=== PATIENT | female | born 1970 | race Caucasian/White ===

== ENCOUNTER 2017-04-28 15:15 | Inpatient (IN) | payer BC, OTHER ==
[~2017-04-28] VITALS: Ht 162.6 cm; Wt 75.4 kg
[2017-04-28] MEDS ORDERED: morphine 4 MG/ML VIAL IV STA (16:04)
[2017-04-28] MEDS ORDERED: ONDANSETRON 4 MG INJ IV STA (16:04)
[2017-04-28 16:26] LABS: ADD SCAN DIFF NO
[2017-04-28 16:30] LABS: BASOPHIL # 0.1 10^3/ul (0.0-0.1); BASOPHILS % 0.5 % (0.0-2.0); EOSINOPHILS # 0.2 10^3/ul (0.0-0.5); EOSINOPHILS % 1.2 % (0.0-7.0); HEMOGLOBIN 12.6 g/dl (12.0-16.0); LYMPHOCYTES # 3.3 10^3/ul (0.8-2.9); LYMPHOCYTES % 26.2 % (15.0-51.0); MEAN CORPUSCULAR HGB CONC 31.5 g/dl (32.0-37.0); MEAN CORPUSCULAR VOLUME 85.8 fl (82.0-101.0); MEAN PLATELET VOLUME 9.2 fl (7.4-10.4); MONOCYTE # 0.9 10^3/ul (0.3-0.9); NEUTROPHIL # 8.3 10^3/ul (1.6-7.5); NEUTROPHILS % 64.8 % (39.0-77.0); PLATELET COUNT 378 10^3/UL (140-415); RED BLOOD COUNT 4.66 10^6/ul (4.20-5.40); RED CELL DISTRIBUTION WIDTH 14.6 % (11.5-14.5); WHITE BLOOD COUNT 12.7 10^3/ul (4.8-10.8)
[2017-04-28 16:33] LABS: ADD UMIC YES; UR BILIRUBIN (Dip) 1+ (NEGATIVE); UR BLOOD (Dip) 3+ (NEGATIVE); UR CLARITY CLEAR (CLEAR); UR COLOR YELLOW (YELLOW); UR GLUCOSE (Dip) NEGATIVE (NEGATIVE); UR KETONES (Dip) TRACE (NEGATIVE); UR LEUKOCYTE ESTERASE (Dip) NEGATIVE (NEGATIVE); UR NITRITE (Dip) NEGATIVE (NEGATIVE); UR TOTAL PROTEIN (Dip) TRACE (NEGATIVE); UR UROBILINOGEN (Dip) 1.0 E.U./dL (0.1-1.0)
--- NOTE | 2017-04-28 16:33 | RADRPT ---
PROCEDURE: XR Chest. CLINICAL INDICATION: Vaginal bleeding. TECHNIQUE: Single frontal view. COMPARISON: None. FINDINGS: The lungs are clear. The heart size is normal. There is no pleural effusion. There is no pneumothorax. IMPRESSION: 1. Normal chest radiograph. RPTAT: QQ .David Herrera MD, Date Time Electronically viewed and signed by .David Herrera MD, on 04/28/2017 16:32 .R/
[2017-04-28 16:48] LABS: INR 0.91; PROTIME 12.3 Sec (12.2-14.2)
[2017-04-28 16:49] LABS: PARTIAL THROMBOPLASTIN TIME 27.5 Sec (25.0-35.0)
[2017-04-28 16:53] LABS: ANION GAP 13 (8-16); BLOOD UREA NITROGEN 12 mg/dl (7-20); CALCIUM 9.2 mg/dl (8.4-10.2); CARBON DIOXIDE 24 mmol/L (21-31); CHLORIDE 109 mmol/L (97-110); CREATININE 0.75 mg/dl (0.44-1.00); GLUCOSE 72 mg/dl (70-220); POTASSIUM 3.9 mmol/L (3.5-5.1); SODIUM 142 mmol/L (135-144)
[2017-04-28] MEDS ORDERED: ONDANSETRON 4 MG INJ IV PRN (17:00)
[2017-04-28] MEDS ORDERED: ACETAMINOPHEN 325 MG TAB PO PRN ×2 (17:00→21:00)
[2017-04-28 17:04] LABS: UR BACTERIA FEW; URINE RBCS >200 /HPF (0)
[2017-04-28 17:05] LABS: UR MUCUS MODERATE; UR SQUAMOUS EPITHELIAL CELL FEW
[2017-04-28 17:06] LABS: TROPONIN-I < 0.012 ng/ml (0.00-0.12)
--- NOTE | 2017-04-28 17:28 | RADRPT ---
PROCEDURE: US Pelvis. CLINICAL INDICATION: Abnormal vaginal bleeding. History of fibroid. TECHNIQUE: The pelvis was evaluated with transabdominal and transvaginal sonography in the axial a nd sagittal planes. COMPARISON: No prior study is available for comparison. FINDINGS: Uterus: 9.9 x 6.0 x 7.0 cm. Endometrium: 2.5 mm. Right ovary: 1.9 x 1.0 x 1.6 cm. Left ovary: 2.3 x 1.2 x 1.9 cm. Uterine masses: There is a anterior fundal fibroid measuring 5.8 x 4.3 x 7.2 cm. There is no other uterine mass. Ovarian masses: None. Color Doppler and pulsed Doppler sonography demonstrate normal flow to the ova keila. Other pelvic masses: None. Free fluid: None. IMPRESSION: 1. Anterior fundal fibroid measuring 5.8 x 4.3 x 7.2 cm. 2. Otherwise normal pelvic ultrasound. RPTAT: QQ .David Herrera MD, MD Date Time Electronically viewed and signed by .David Herrera MD, on 04/28/2017 17:27 .R/
[2017-04-28] MEDS ORDERED: TRAZ150T65 PO (17:31)
[2017-04-28] MEDS ORDERED: ALPR0.5T PO (17:32)
[2017-04-28] MEDS ORDERED: ESCI20TA PO (17:33)
[2017-04-28] MEDS ORDERED: SUMA100T9 PO (17:34)
[2017-04-28] MEDS ORDERED: OXYC-279 PO (17:34)
[2017-04-28] MEDS ORDERED: ONDA4TAB8 PO (17:35)
[2017-04-28] MEDS ORDERED: MEDR10TA2 PO (17:36)
[2017-04-28 18:01] LABS: ICTOTEST NEGATIVE (NEGATIVE)
[2017-04-28 18:29] VITALS: TEMP 98.3
[2017-04-28 19:30] VITALS: BP 120/71; RESP 20
[2017-04-28 20:03] VITALS: Ht 162.6 cm; Wt 75.4 kg
--- NOTE | 2017-04-28 20:05 | ERA ---
ER Documentation Chief Complaint Date/Time DATE: 04/28/17 TIME: 20:02 Chief Complaint vag bleed x 2 days HPI Patient is a 46-year-old female with fibromyalgia presents with vaginal bleeding. The patient was sent by Dr. Serrano for vaginal bleeding and hysterectomy. The patient has pelvic cramping as well. She said that she tried 1.5 Percocet today but was still having pain. She said that she is tried Provera as an outpatient and she is still having vaginal bleeding. She says that she has had multiple visits to [place] emergency department and workup there as well. ROS All systems reviewed and are negative except as per history of present illness. Medications Home Meds Reported Medications Medroxyprogesterone Acetate* (Provera*) 10 Mg Tablet, 20 MG PO TID, TAB 04/28/17 Ondansetron Hcl* (Zofran*) 4 Mg Tablet, 4 MG PO NEEDED Y for NAUSEA AND OR VOMITING, TAB 04/28/17 Oxycodone HCl/Acetaminophen (Percocet 5-325 mg Tablet) 1 Each Tablet, 1 EACH PO NEEDED, TAB 04/28/17 Sumatriptan Succinate* (Imitrex*) 100 Mg Tablet, 100 MG PO DAILY Y for MIGRAINE HEADACHE, TAB May repeat after 2 hours if needed; MAX 200 mg/24 hours 04/28/17 Escitalopram Oxalate* (Lexapro*) 20 Mg Tablet, 40 MG PO DAILY, #30 TAB 04/28/17 Alprazolam* (Xanax*) 0.5 Mg Tab, 0.5 MG PO NEEDED Y for ANXIETY, TAB 04/28/17 Trazodone Hcl* (Trazodone Hcl*) 150 Mg Tablet, 150 MG PO QHS, #30 TAB 04/28/17 Allergies Allergies: Coded Allergies: ibuprofen (Verified Allergy, Severe, hives, 04/28/17) PMhx/Soc History of Surgery: Yes (gastric bypass) Anesthesia Reaction: No Hx Neurological Disorder: No Hx Respiratory Disorders: No Hx Cardiac Disorders: No Hx Psychiatric Problems: No Hx Miscellaneous Medical Probl: Yes (fibroids) Hx Alcohol Use: Yes Hx Substance Use: No Hx Tobacco Use: No Smoking Status: Never smoker FmHx Family History: diabetes Physical Exam Vitals Vital Signs Date Time Temp Pulse Resp B/P Pulse Ox O2 Delivery O2 Flow Rate FiO2 04/28/17 15:17 98.3 95 18 141/69 98 Physical Exam Const: Mild distress secondary to pain Head: Atraumatic Eyes: Normal Conjunctiva ENT: Normal External Ears, Nose and Mouth. Neck: Full range of motion..~ No meningismus. Resp: Clear to auscultation bilaterally Cardio: Regular rate and rhythm, no murmurs Abd: Pelvic cramping Skin: No petechiae or rashes Back: No midline or flank tenderness Ext: No cyanosis, or edema Neur: Awake and alert Psych: Normal Mood and Affect Result Diagram: 04/28/17 1605 04/28/17 1605 Results 24 hrs Laboratory Tests Test 04/28/17 16:04 04/28/17 16:05 Urine Color YELLOW Urine Clarity CLEAR Urine pH 5.5 Urine Specific [place] >=1.030 Urine Ketones TRACE Urine Nitrite NEGATIVE Urine Bilirubin 1+ Urine Ictotest NEGATIVE Urine Urobilinogen 1.0 E.U./dL Urine Leukocyte Esterase NEGATIVE Urine Microscopic RBC >200/HPF Urine Microscopic WBC 0-2/HPF Urine Squamous Epithelial Cells FEW Urine Bacteria FEW Urine Mucus MODERATE Urine Hemoglobin 3+ Urine Glucose NEGATIVE% Urine Total Protein TRACE White Blood Count 12.710^3/ul Red Blood Count 4.6610^6/ul Hemoglobin 12.6g/dl Hematocrit 40.0% Mean Corpuscular Volume 85.8fl Mean Corpuscular Hemoglobin 27.0pg Mean Corpuscular Hemoglobin Concent 31.5g/dl Red Cell Distribution Width 14.6% Platelet Count 07973^3/UL Mean Platelet Volume 9.2fl Neutrophils % 64.8% Lymphocytes % 26.2% Monocytes % 7.0% Eosinophils % 1.2% Basophils % 0.5% Nucleated Red Blood Cells % 0.0/100WBC Neutrophils # 8.310^3/ul Lymphocytes # 3.310^3/ul Monocytes # 0.910^3/ul Eosinophils # 0.210^3/ul Basophils # 0.110^3/ul Nucleated Red Blood Cells # 0.010^3/ul Prothrombin Time 12.3Sec Prothrombin Time Ratio 1.0 INR International Normalized Ratio 0.91 Activated Partial Thromboplast Time 27.5Sec Sodium Level 142mmol/L Potassium Level 3.9mmol/L Chloride Level 109mmol/L Carbon Dioxide Level 24mmol/L Anion Gap 13 Blood Urea Nitrogen 12mg/dl Creatinine 0.75mg/dl Glucose Level 72mg/dl Calcium Level 9.2mg/dl Troponin I < 0.012ng/ml Beta HCG, Quantitative < 2.4mIU/ml Current Medications Medications (Trade) Dose Ordered Sig/Omar Route PRN Reason Start Time Stop Time Status Last Admin Dose Admin Morphine Sulfate (morphine) 4 mg ONCE STAT IV 04/28/17 16:04 04/28/17 16:05 DC 04/28/17 16:09 Ondansetron HCl (Zofran Inj) 4 mg ONCE STAT IV 04/28/17 16:04 04/28/17 16:05 DC 04/28/17 16:09 Procedures/MDM Chest x-ray negative per radiology. Ultrasound shows fundal fibroid per radiology. Smoking Cessation Therapy: Pt. was lectured for greater than 3 minutes on the health risks of continued smoking and the benefits of cessation. Patient is a 46-year-old female who presents with vaginal bleeding. The patient has failed outpatient treatment at this time. She has [employer] insurance and Dr. Serrano would like to do a hysterectomy and would like the patient admitted to Dr. Hooks. The patient will be admitted to Dr. Hooks to a medical surgical bed. Patient had preoperative studies done. Departure Diagnosis: Primary Impression: Vaginal bleeding Condition: JUANITO Robertson MD Apr 28, 2017 20:05
[2017-04-28] MEDS ORDERED: ALPRAZOLAM 0.5 MG TAB PO PRN (21:00)
[2017-04-28] MEDS: morphine 2 MG INJ IV PRN (21:16)
[2017-04-28] MEDS: traZODone 100 MG TAB PO SCH (21:16)
[2017-04-28] MEDS: ESCITALOPRAM 10 MG TAB PO SCH (22:39)
[2017-04-28] MEDS: MEDROXYPROGESTERONE 10 MG TAB PO SCH (22:39)
--- NOTE | 2017-04-28 23:12 | CONS ---
Date/Time of Note Date/Time of Note DATE: 04/28/17 TIME: 23:11 Consultation Date/Type/Reason Admit Date/Time Apr 28, 2017 at 16:31 Hx of Present Illness Oh Huitron M.D. [facility] History and Physical Examination / Consultation Jacquelyn Alberts Apr 28, 2017 Age: 46 : 1970 Physicians: [employer] Maker: Master Police Detective: Oncologist: Other: History of the Present Illness: A 46- year old female with persistent bleeding and pain after an endometrial ablation by Dr. Marshall Severe pain and menorrhagia mandating transfusions multiple times. Indicates worse pain and bleeding today. Past Medical History: Surgical: None Medical: None Medications: 04/27/17 Lexapro 20 mg tablet 1 tablet by mouth BID 04/27/17 Percocet 5 mg-325 mg tablet 1 tablet by mouth Add'l Sig prn 04/27/17 Provera 10 mg tablet 2 tablet by mouth TID 04/27/17 trazodone 150 mg tablet 1 tablet by mouth DAILY 04/27/17 Xanax 0.5 mg tablet 1 tablet by mouth as directed prn 04/27/17 Zofran 4 mg tablet 1 tablet by mouth Add'l Sig prn gardisil Colonoscopy Allergies: 04/27/17 Advil Family History: Noncontributory Social History: Noncontributory Review of Systems: Negative except for above noted Physical Examination Vitals (04/27/2017): Weight 155, Height 64, BP 130/80, BMI 26.6. General: Alert. HEENT: Pupils are equal, round, reactive to light and accommodation. Neck: Supple with no masses of lymphadenopathy. Breast: Deferred due to recent examination and responsibility of primary care physician. Chest: Clear to auscultation and percussion with no rales, ronchi, or wheeze. Heart: Normal rhythm with no murmur. Abdomen: Non tender. No masses, ascites, or organomegaly. Pelvis: Cervix somewhat strictured, uterus enlarged and globular with irregularities consistent with fibroids and adenomyosis. Rectal: Confirmatory with pelvic exam. Neurological: Grossly intact Assessment: Probably symptomatic fibroids and endometriosis; possible uterine cancer. Plan: TLH, possible LSH, possible USO or BSO , possible staging, possible UD. All risks and benefits of this procedure have been discussed in detail with the patient, as well as alternative treatment strategies and their implications. The patient is aware that there is some possibility of a blood transfusion and its associated risks and benefits. She wishes to proceed and gives her informed consent. Oh Huitron M.D. Social History Smoking Status: Current every day smoker Exam/Review of Systems Vital Signs Vitals Vital Signs Date Time Temp Pulse Resp B/P Pulse Ox O2 Delivery O2 Flow Rate FiO2 04/28/17 19:30 98.2 69 20 120/71 97 04/28/17 18:29 Room Air Results Result Diagram: 04/28/17 1605 04/28/17 1605 Results 24 hrs Laboratory Tests Test 04/28/17 16:04 04/28/17 16:05 Urine Color YELLOW Urine Clarity CLEAR Urine pH 5.5 Urine Specific [place] >=1.030 H Urine Ketones TRACE H Urine Nitrite NEGATIVE Urine Bilirubin 1+ H Urine Ictotest NEGATIVE Urine Urobilinogen 1.0 E.U./dL Urine Leukocyte Esterase NEGATIVE Urine Microscopic RBC >200 Urine Microscopic WBC 0-2 Urine Squamous Epithelial Cells FEW Urine Bacteria FEW Urine Mucus MODERATE Urine Hemoglobin 3+ H Urine Glucose NEGATIVE Urine Total Protein TRACE White Blood Count 12.7 H Red Blood Count 4.66 Hemoglobin 12.6 Hematocrit 40.0 Mean Corpuscular Volume 85.8 Mean Corpuscular Hemoglobin 27.0 L Mean Corpuscular Hemoglobin Concent 31.5 L Red Cell Distribution Width 14.6 H Platelet Count 378 Mean Platelet Volume 9.2 Neutrophils % 64.8 Lymphocytes % 26.2 Monocytes % 7.0 Eosinophils % 1.2 Basophils % 0.5 Nucleated Red Blood Cells % 0.0 Neutrophils # 8.3 H Lymphocytes # 3.3 H Monocytes # 0.9 Eosinophils # 0.2 Basophils # 0.1 Nucleated Red Blood Cells # 0.0 Prothrombin Time 12.3 Prothrombin Time Ratio 1.0 INR International Normalized Ratio 0.91 Activated Partial Thromboplast Time 27.5 Sodium Level 142 Potassium Level 3.9 Chloride Level 109 Carbon Dioxide Level 24 Anion Gap 13 Blood Urea Nitrogen 12 Creatinine 0.75 Glucose Level 72 Calcium Level 9.2 Troponin I < 0.012 Beta HCG, Quantitative < 2.4 Medications Medications Current Medications Morphine Sulfate (morphine) 2 mg Q3H PRN IV SEVERE PAIN LEVEL 7-10 Last administered on 04/28/17 21:16; Admin Dose 2 MG; Start 04/28/17 at 21:00 Alprazolam (Xanax) 0.5 mg BID PRN PO anxiety; Start 04/28/17 at 21:00 Escitalopram Oxalate (Lexapro) 40 mg DAILY PO Last administered on 04/28/17 22 :39; Admin Dose 40 MG; Start 04/28/17 at 22:00 Ondansetron HCl (Zofran Inj) 4 mg Q4H PRN IV NAUSEA AND/OR VOMITING; Start at 21:00 Medroxyprogesterone Acetate (Provera) 20 mg TID PO Last administered on 22:39; Admin Dose 20 MG; Start 04/28/17 at 21:00 Oxycodone/ Acetaminophen (Percocet (5/ 325)) 1 tab Q4H PRN PO PAIN; Start 04/28 at 21:00 Sumatriptan Succinate (Imitrex) 100 mg DAILY PRN PO migraine headache; Start at 21:00 Trazodone HCl (Desyrel) 150 mg HS PO Last administered on 04/28/17 21:16; Admin Dose 150 MG; Start 04/28/17 at 21:00 Acetaminophen (Tylenol Tab) 650 mg Q4H PRN PO PAIN AND OR ELEVATED TEMP; Start 04/28/17 at 21:00 Nicotine (Nicoderm 14 Mg/ 24hr) 1 patch DAILY TRANSDERM ; Start 04/29/17 at 09: 00 OH HUITRON MD Apr 28, 2017 23:12
[2017-04-29] MEDS: morphine 2 MG INJ IV PRN ×4 (03:51→16:05)
[2017-04-29] MEDS ORDERED: ALPRAZOLAM 0.25 MG TAB PO PRN (06:30)
--- NOTE | 2017-04-29 06:35 | HP ---
DATE OF ADMISSION: 04/28/2017 CHIEF COMPLAINT: Vaginal bleed for the last 3 months. HISTORY OF PRESENT ILLNESS: The patient is a 46-year-old female with a history of uterine fibroid a nd has been having vaginal bleed for the last 3 months on and off. The patient had been started on hormonal treatment but despite that, the patient continues to have vaginal bleed. The patient was s een by Dr. Serrano in his office yesterday and sent to [facility] for further janine luation and management. The patient also has lower abdominal discomfort and also patient has chroni c neck pain. The patient has a history of anterior cervical fusion several years ago. The patient did not have any fever or chills. No reported chest pain. No reported shortness of breath. No rep orted leg edema. No reported dysuria or hematuria. The patient was seen in the ER and was noted to have a hemoglobin of 12.6. Serum test was negative. Renal functions were normal. The p atient is being admitted for further evaluation and management. The patient underwent pelvic ultras ound in the ER, which revealed anterior fundal fibroid 5.8 x 4.7 x 7.2 cm. The patient also had a c hest x-ray done which was negative. ALLERGIES: IBUPROFEN, WHICH CAUSES RASH AND URTICARIA. PAST SURGICAL HISTORY: 1. 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 2. History of anterior cervical fusion. 3. History of endometrial ablation several years ago. FAMILY HISTORY: Mother has fibroids. PHYSICAL EXAMINATION: GENERAL: The patient is conscious, awake, alert. VITAL SIGNS: Temperature 98.3, pulse 72, respirations 17, blood pressure 116/68. HEENT: No eye discharge or redness. Extraocular movement intact. Oropharynx is clear. NECK: Supple. No mass, no thyromegaly. CHEST: Fairly clear. CARDIOVASCULAR: S1, S2 normal, no murmur. ABDOMEN: Soft, nondistended. Mild tenderness in the lower abdomen. NEUROLOGIC: The patient is awake, alert, fairly oriented with no gross focal deficit. LABORATORY DATA: WBC 12.7, hemoglobin 12.6, BUN 12, creatinine 0.7. IMPRESSION: Vaginal bleed due to uterine fibroid. PLAN: The patient will be seen by Dr. Serrano from [employer] oncology standpoint. Currently, the patien t does not need any blood transfusion. The patient reported that a few months ago she did go to [facility] [place] and was admitted for symptomatic anemia. Meanwhile, the patient will be started on IV fluids and supportive care. Further recommendations will depend on the patient's hospital cours e and recommendations from Dr. Serrano. We will continue to follow her from a medical standpoint. Dictated By: DEVEN CORONA/JITENDRA Conf#: [id number] DID#: [id number]
[2017-04-29] MEDS: SOD CHLORIDE 0.9% 1,000 ML IV SCH ×2 (07:38→21:06)
[2017-04-29 07:53] VITALS: BP 109/62; RESP 18
[2017-04-29] MEDS: MEDROXYPROGESTERONE 10 MG TAB PO SCH ×3 (08:32→21:03)
[2017-04-29] MEDS: ESCITALOPRAM 10 MG TAB PO SCH (08:32)
[2017-04-29] MEDS: NICOTINE (14 MG/24 HR) PATCH TRANSDERM SCH (08:34)
--- NOTE | 2017-04-29 09:57 | RADRPT ---
Vent Rate: 72 bpm RR Interval: 0 msec IA Interval: 156 msec QRS Duration: 74 msec QT Interval: 436 msec QTC Interval: 477 msec P-R-T Gully: 58 - 16 - 40 degrees Normal sinus rhythm Normal ECG Electronically Signed By: Bassam Tong [id number]
[2017-04-29] MEDS: SUMATRIPTAN 50 MG TAB PO PRN (10:02)
[2017-04-29 11:04] LABS: ADD SCAN DIFF NO
[2017-04-29 11:07] LABS: BASOPHILS % 0.4 % (0.0-2.0); EOSINOPHILS # 0.2 10^3/ul (0.0-0.5); EOSINOPHILS % 2.1 % (0.0-7.0); HEMATOCRIT 36.3 % (37.0-47.0); HEMOGLOBIN 11.5 g/dl (12.0-16.0); LYMPHOCYTES # 2.3 10^3/ul (0.8-2.9); LYMPHOCYTES % 27.6 % (15.0-51.0); MEAN CORPUSCULAR HEMOGLOBIN 27.6 pg (29.0-33.0); MEAN CORPUSCULAR HGB CONC 31.7 g/dl (32.0-37.0); MEAN CORPUSCULAR VOLUME 87.1 fl (82.0-101.0); MEAN PLATELET VOLUME 9.5 fl (7.4-10.4); MONOCYTE # 0.6 10^3/ul (0.3-0.9); MONOCYTES % 7.6 % (0.0-11.0); NEUTROPHIL # 5.3 10^3/ul (1.6-7.5); NEUTROPHILS % 62.1 % (39.0-77.0); PLATELET COUNT 339 10^3/UL (140-415); RED BLOOD COUNT 4.17 10^6/ul (4.20-5.40); RED CELL DISTRIBUTION WIDTH 15.1 % (11.5-14.5); WHITE BLOOD COUNT 8.5 10^3/ul (4.8-10.8)
[2017-04-29 11:28] LABS: CALCIUM 9.3 mg/dl (8.4-10.2); CREATININE 0.66 mg/dl (0.44-1.00); POTASSIUM 4.3 mmol/L (3.5-5.1)
[2017-04-29] MEDS: OXYCODONE/ACETAMINOPHEN (5/325) TAB PO PRN (14:11)
[2017-04-29] MEDS: ONDANSETRON 4 MG INJ IV PRN (14:11)
--- NOTE | 2017-04-29 14:36 | PN ---
Date/Time of Note Date/Time of Note DATE: 04/29/17 TIME: 14:34 Assessment/Plan VTE Prophylaxis VTE Prophylaxis Intervention: other Lines/Catheters IV Catheter Type (from Nrsg): Saline Lock Assessment/Plan Assessment/Plan Vaginal bleed due to uterine fibroid. 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 Further recommendations will depend on the patient's hospital course. Mitchell Hooks Subjective 24 Hr Interval Summary Respiratory: no complaints Cardiovascular: no complaints Gastrointestinal: no complaints Genitourinary: bleeding Exam/Review of Systems Vital Signs Vitals Vital Signs Date Time Temp Pulse Resp B/P Pulse Ox O2 Delivery O2 Flow Rate FiO2 04/29/17 07:53 98.5 71 18 109/62 97 04/28/17 18:29 Room Air Intake and Output 04/28/17 04/28/17 04/29/17 15:00 23:00 07:00 Intake Total 320 ml Balance 320 ml Exam Constitutional: alert Respiratory: clear to auscultation, normal air movement Cardiovascular: nl pulses, regular rate and rhythm Gastrointestinal: non-tender, soft Musculoskeletal: nl extremities to inspection Extremities: normal pulses Neurological: nl mental status, nl speech Results Result Diagram: 04/29/17 1025 04/29/17 1025 Results 24 hrs Laboratory Tests Test 04/28/17 16:04 04/28/17 16:05 04/29/17 10:25 Urine Color YELLOW Urine Clarity CLEAR Urine pH 5.5 Urine Specific [place] >=1.030 H Urine Ketones TRACE H Urine Nitrite NEGATIVE Urine Bilirubin 1+ H Urine Ictotest NEGATIVE Urine Urobilinogen 1.0 E.U./dL Urine Leukocyte Esterase NEGATIVE Urine Microscopic RBC >200 Urine Microscopic WBC 0-2 Urine Squamous Epithelial Cells FEW Urine Bacteria FEW Urine Mucus MODERATE Urine Hemoglobin 3+ H Urine Glucose NEGATIVE Urine Total Protein TRACE White Blood Count 12.7 H 8.5 # Red Blood Count 4.66 4.17 L Hemoglobin 12.6 11.5 L Hematocrit 40.0 36.3 L Mean Corpuscular Volume 85.8 87.1 Mean Corpuscular Hemoglobin 27.0 L 27.6 L Mean Corpuscular Hemoglobin Concent 31.5 L 31.7 L Red Cell Distribution Width 14.6 H 15.1 H Platelet Count 378 339 Mean Platelet Volume 9.2 9.5 Neutrophils % 64.8 62.1 Lymphocytes % 26.2 27.6 Monocytes % 7.0 7.6 Eosinophils % 1.2 2.1 Basophils % 0.5 0.4 Nucleated Red Blood Cells % 0.0 0.0 Neutrophils # 8.3 H 5.3 Lymphocytes # 3.3 H 2.3 Monocytes # 0.9 0.6 Eosinophils # 0.2 0.2 Basophils # 0.1 0.0 Nucleated Red Blood Cells # 0.0 0.0 Prothrombin Time 12.3 Prothrombin Time Ratio 1.0 INR International Normalized Ratio 0.91 Activated Partial Thromboplast Time 27.5 Sodium Level 142 141 Potassium Level 3.9 4.3 Chloride Level 109 108 Carbon Dioxide Level 24 23 Anion Gap 13 14 Blood Urea Nitrogen 12 11 Creatinine 0.75 0.66 Glucose Level 72 107 Calcium Level 9.2 9.3 Troponin I < 0.012 Beta HCG, Quantitative < 2.4 Medications Medications Current Medications Morphine Sulfate (morphine) 2 mg Q3H PRN IV SEVERE PAIN LEVEL 7-10 Last administered on 04/29/17 13:14; Admin Dose 2 MG; Start 04/28/17 at 21:00 Escitalopram Oxalate (Lexapro) 40 mg DAILY PO Last administered on 04/29/17 08 :32; Admin Dose 40 MG; Start 04/28/17 at 22:00 Ondansetron HCl (Zofran Inj) 4 mg Q4H PRN IV NAUSEA AND/OR VOMITING Last administered on 04/29/17 14:11; Admin Dose 4 MG; Start 04/28/17 at 21:00 Medroxyprogesterone Acetate (Provera) 20 mg TID PO Last administered on 13:14; Admin Dose 20 MG; Start 04/28/17 at 21:00 Oxycodone/ Acetaminophen (Percocet (5/ 325)) 1 tab Q4H PRN PO PAIN Last administered on 04/29/17 14:11; Admin Dose 1 TAB; Start 04/28/17 at 21:00 Sumatriptan Succinate (Imitrex) 100 mg DAILY PRN PO migraine headache Last administered on 04/29/17 10:02; Admin Dose 100 MG; Start 04/28/17 at 21:00 Trazodone HCl (Desyrel) 150 mg HS PO Last administered on 04/28/17 21:16; Admin Dose 150 MG; Start 04/28/17 at 21:00 Acetaminophen (Tylenol Tab) 650 mg Q4H PRN PO PAIN AND OR ELEVATED TEMP; Start 04/28/17 at 21:00 Nicotine (Nicoderm 14 Mg/ 24hr) 1 patch DAILY TRANSDERM Last administered on 08:34; Admin Dose 1 PATCH; Start 04/29/17 at 09:00 Alprazolam 0.5 mg 0.5 mg BID PRN PO anxiety Last administered on 04/29/17 06: 20; Admin Dose 0.5 MG; Start 04/29/17 at 06:30 Sodium Chloride (NS) 1,000 ml @ 75 mls/hr [id number] IV Last administered on 04/29 07:38; Admin Dose 75 MLS/HR; Start 04/29/17 at 07:30 GEOVANI PATEL Apr 29, 2017 14:36
[2017-04-29 15:39] LABS: HEMATOCRIT 35.3 % (37.0-47.0); HEMOGLOBIN 11.7 g/dl (12.0-16.0)
[2017-04-29 20:14] VITALS: BP 117/56; RESP 18
[2017-04-29] MEDS: traZODone 100 MG TAB PO SCH (21:03)
[2017-04-30 08:06] VITALS: BP 126/67; RESP 18
[2017-04-30] MEDS: ESCITALOPRAM 10 MG TAB PO SCH (09:08)
[2017-04-30] MEDS: MEDROXYPROGESTERONE 10 MG TAB PO SCH ×3 (09:09→20:57)
[2017-04-30] MEDS: NICOTINE (14 MG/24 HR) PATCH TRANSDERM SCH (09:10)
[2017-04-30] MEDS: morphine 4 MG/ML VIAL IV PRN ×2 (10:30→15:22)
[2017-04-30] MEDS: SOD CHLORIDE 0.9% 1,000 ML IV SCH (10:32)
[2017-04-30] MEDS: MUPIROCIN 2% 22 GM OINT TOP SCH ×2 (12:30→20:58)
[2017-04-30] MEDS: OXYCODONE/ACETAMINOPHEN (5/325) TAB PO PRN (12:36)
[2017-04-30] MEDS: ONDANSETRON 4 MG INJ IV PRN (12:41)
--- NOTE | 2017-04-30 15:18 | PN ---
Date/Time of Note Date/Time of Note DATE: 04/30/17 TIME: 15:15 Assessment/Plan VTE Prophylaxis VTE Prophylaxis Intervention: other Lines/Catheters IV Catheter Type (from Nrsg): Peripheral IV Urinary Cath still in place: No Assessment/Plan Assessment/Plan Vaginal bleed due to uterine fibroid. per Dr. Serrano from [employer] oncology standpoint. Further recommendations will depend on the patient's hospital course. Mitchell Hooks Subjective 24 Hr Interval Summary Genitourinary: bleeding Exam/Review of Systems Vital Signs Vitals Vital Signs Date Time Temp Pulse Resp B/P Pulse Ox O2 Delivery O2 Flow Rate FiO2 04/30/17 08:06 97.9 74 18 126/67 97 04/28/17 18:29 Room Air Intake and Output 04/29/17 04/29/17 04/30/17 15:00 23:00 07:00 Intake Total 1000 ml 935 ml Balance 1000 ml 935 ml Exam Constitutional: alert, oriented Respiratory: clear to auscultation Cardiovascular: nl pulses, regular rate and rhythm Gastrointestinal: non-tender, soft Genitourinary - Female: other Musculoskeletal: nl extremities to inspection Extremities: normal pulses Neurological: nl mental status, nl speech Results Result Diagram: 04/29/17 1530 04/29/17 1025 Results 24 hrs Laboratory Tests Test 04/29/17 15:30 Hemoglobin 11.7 L Hematocrit 35.3 L Medications Medications Current Medications Escitalopram Oxalate (Lexapro) 40 mg DAILY PO Last administered on 04/30/17 09 :08; Admin Dose 40 MG; Start 04/28/17 at 22:00 Ondansetron HCl (Zofran Inj) 4 mg Q4H PRN IV NAUSEA AND/OR VOMITING Last administered on 04/30/17 12:41; Admin Dose 4 MG; Start 04/28/17 at 21:00 Medroxyprogesterone Acetate (Provera) 20 mg TID PO Last administered on 12:30; Admin Dose 20 MG; Start 04/28/17 at 21:00 Oxycodone/ Acetaminophen (Percocet (5/ 325)) 1 tab Q4H PRN PO PAIN Last administered on 04/30/17 12:36; Admin Dose 1 TAB; Start 04/28/17 at 21:00 Sumatriptan Succinate (Imitrex) 100 mg DAILY PRN PO migraine headache Last administered on 04/29/17 10:02; Admin Dose 100 MG; Start 04/28/17 at 21:00 Trazodone HCl (Desyrel) 150 mg HS PO Last administered on 04/29/17 21:03; Admin Dose 150 MG; Start 04/28/17 at 21:00 Acetaminophen (Tylenol Tab) 650 mg Q4H PRN PO PAIN AND OR ELEVATED TEMP; Start 04/28/17 at 21:00 Nicotine (Nicoderm 14 Mg/ 24hr) 1 patch DAILY TRANSDERM Last administered on 09:10; Admin Dose 1 PATCH; Start 04/29/17 at 09:00 Alprazolam 0.5 mg 0.5 mg BID PRN PO anxiety Last administered on 04/29/17 06: 20; Admin Dose 0.5 MG; Start 04/29/17 at 06:30 Sodium Chloride (NS) 1,000 ml @ 75 mls/hr [id number] IV Last administered on 04/30 10:32; Admin Dose 75 MLS/HR; Start 04/29/17 at 07:30 Morphine Sulfate (morphine) 4 mg Q3H PRN IV SEVERE PAIN LEVEL 7-10 Last administered on 04/30/17 10:30; Admin Dose 4 MG; Start 04/29/17 at 19:00 Mupirocin (Bactroban) 1 applic BID TOP Last administered on 04/30/17 12:30; Admin Dose 1 APPLIC; Start 04/30/17 at 11:00; Stop 05/06/17 at 21:01 GEOVANI PATEL Apr 30, 2017 15:18
[2017-04-30 16:20] LABS: ADD SCAN DIFF NO
[2017-04-30 16:22] LABS: BASOPHILS % 0.3 % (0.0-2.0); EOSINOPHILS # 0.1 10^3/ul (0.0-0.5); EOSINOPHILS % 1.4 % (0.0-7.0); HEMATOCRIT 35.4 % (37.0-47.0); HEMOGLOBIN 11.2 g/dl (12.0-16.0); LYMPHOCYTES # 3.1 10^3/ul (0.8-2.9); LYMPHOCYTES % 30.6 % (15.0-51.0); MEAN CORPUSCULAR HEMOGLOBIN 27.7 pg (29.0-33.0); MEAN CORPUSCULAR HGB CONC 31.6 g/dl (32.0-37.0); MEAN CORPUSCULAR VOLUME 87.4 fl (82.0-101.0); MEAN PLATELET VOLUME 9.4 fl (7.4-10.4); MONOCYTE # 0.8 10^3/ul (0.3-0.9); NEUTROPHIL # 6.1 10^3/ul (1.6-7.5); NEUTROPHILS % 59.4 % (39.0-77.0); PLATELET COUNT 337 10^3/UL (140-415); RED BLOOD COUNT 4.05 10^6/ul (4.20-5.40); RED CELL DISTRIBUTION WIDTH 14.7 % (11.5-14.5); WHITE BLOOD COUNT 10.2 10^3/ul (4.8-10.8)
[2017-04-30 16:45] LABS: CALCIUM 9.1 mg/dl (8.4-10.2); CREATININE 0.68 mg/dl (0.44-1.00); POTASSIUM 4.4 mmol/L (3.5-5.1)
[2017-04-30] MEDS: SUMATRIPTAN 50 MG TAB PO PRN (17:47)
[2017-04-30] MEDS: BISACODYL (EC) 5 MG TAB PO PRN (17:50)
[2017-04-30 20:10] VITALS: BP 144/71; RESP 18
[2017-04-30] MEDS: traZODone 100 MG TAB PO SCH (20:56)
[2017-04-30] MEDS: DOCUSATE SODIUM 100 MG CAP PO SCH (21:00)
[2017-05-01] MEDS: SOD CHLORIDE 0.9% 1,000 ML IV SCH ×2 (00:16→13:19)
[2017-05-01] MEDS: morphine 4 MG/ML VIAL IV PRN ×3 (04:08→19:10)
[2017-05-01 06:24] LABS: ADD SCAN DIFF NO
[2017-05-01 06:29] LABS: BASOPHILS % 0.3 % (0.0-2.0); EOSINOPHILS # 0.2 10^3/ul (0.0-0.5); EOSINOPHILS % 1.7 % (0.0-7.0); HEMATOCRIT 34.5 % (37.0-47.0); LYMPHOCYTES # 2.8 10^3/ul (0.8-2.9); LYMPHOCYTES % 32.2 % (15.0-51.0); MEAN CORPUSCULAR HEMOGLOBIN 27.8 pg (29.0-33.0); MEAN CORPUSCULAR HGB CONC 31.9 g/dl (32.0-37.0); MEAN CORPUSCULAR VOLUME 87.1 fl (82.0-101.0); MEAN PLATELET VOLUME 9.5 fl (7.4-10.4); MONOCYTE # 0.7 10^3/ul (0.3-0.9); MONOCYTES % 8.1 % (0.0-11.0); NEUTROPHIL # 5.1 10^3/ul (1.6-7.5); NEUTROPHILS % 57.6 % (39.0-77.0); PLATELET COUNT 333 10^3/UL (140-415); RED BLOOD COUNT 3.96 10^6/ul (4.20-5.40); WHITE BLOOD COUNT 8.8 10^3/ul (4.8-10.8)
[2017-05-01 06:58] LABS: CALCIUM 9.2 mg/dl (8.4-10.2); CREATININE 0.67 mg/dl (0.44-1.00); POTASSIUM 4.2 mmol/L (3.5-5.1)
[2017-05-01 07:28] VITALS: BP 125/68; RESP 16
[2017-05-01] MEDS: MEDROXYPROGESTERONE 10 MG TAB PO SCH ×3 (09:03→20:36)
[2017-05-01] MEDS: ESCITALOPRAM 10 MG TAB PO SCH (09:03)
[2017-05-01] MEDS: DOCUSATE SODIUM 100 MG CAP PO SCH ×2 (09:03→20:36)
[2017-05-01] MEDS: MUPIROCIN 2% 22 GM OINT TOP SCH ×2 (09:03→20:37)
[2017-05-01] MEDS: NICOTINE (14 MG/24 HR) PATCH TRANSDERM SCH (09:04)
[2017-05-01] MEDS: SUMATRIPTAN 50 MG TAB PO PRN (11:10)
--- NOTE | 2017-05-01 12:26 | PN ---
Date/Time of Note Date/Time of Note DATE: 05/01/17 TIME: 12:24 Assessment/Plan VTE Prophylaxis VTE Prophylaxis Intervention: SCD's Lines/Catheters IV C[facility]ter Type (from [facility] Peripheral IV Urinary Cath still in place: No Assessment/Plan Chief Complaint/Hosp Course Oh Huitron M.D. [facility] History and Physical Examination / Consultation Jacquelyn Alberts Apr 28, 2017 Age: 46 : 1970 Physicians: Front Desk Team Member: Driller Brake Lining: Oncologist: Other: History of the Present Illness: A 46- year old female with persistent bleeding and pain after an endometrial ablation by Dr. Marshall Severe pain and menorrhagia mandating transfusions multiple times. Indicates worse pain and bleeding today. Past Medical History: Surgical: None Medical: None Medications: 04/27/17 Lexapro 20 mg tablet 1 tablet by mouth BID 04/27/17 Percocet 5 mg-325 mg tablet 1 tablet by mouth Add'l Sig prn 04/27/17 Provera 10 mg tablet 2 tablet by mouth TID 04/27/17 trazodone 150 mg tablet 1 tablet by mouth DAILY 04/27/17 Xanax 0.5 mg tablet 1 tablet by mouth as directed prn 04/27/17 Zofran 4 mg tablet 1 tablet by mouth Add'l Sig prn gardisil Colonoscopy Allergies: 04/27/17 Advil Family History: Noncontributory Social History: Noncontributory Review of Systems: Negative except for above noted Physical Examination Vitals (04/27/2017): Weight 155, Height 64, BP 130/80, BMI 26.6. General: Alert. HEENT: Pupils are equal, round, reactive to light and accommodation. Neck: Supple with no masses of lymphadenopathy. Breast: Deferred due to recent examination and responsibility of primary care physician. Chest: Clear to auscultation and percussion with no rales, ronchi, or wheeze. Heart: Normal rhythm with no murmur. Abdomen: Non tender. No masses, ascites, or organomegaly. Pelvis: Cervix somewhat strictured, uterus enlarged and globular with irregularities consistent with fibroids and adenomyosis. Rectal: Confirmatory with pelvic exam. Neurological: Grossly intact Assessment: Probably symptomatic fibroids and endometriosis; possible uterine cancer. Plan: TLH, possible LSH, possible USO or BSO , possible staging, possible UD. All risks and benefits of this procedure have been discussed in detail with the patient, as well as alternative treatment strategies and their implications. The patient is aware that there is some possibility of a blood transfusion and its associated risks and benefits. She wishes to proceed and gives her informed consent. Oh Huitron M.D. Problems: Assessment/Plan A- H/H declined and ongoing severe pain P- schedule surgery Subjective 24 Hr Interval Summary Free Text/Dictation ongoing severe pain and bleeding Exam/Review of Systems Vital Signs Vitals Vital Signs Date Time Temp Pulse Resp B/P Pulse Ox O2 Delivery O2 Flow Rate FiO2 05/01/17 07:28 98.3 72 16 125/68 95 04/28/17 18:29 Room Air Intake and Output 04/30/17 04/30/17 05/01/17 15:00 23:00 07:00 Intake Total 325 ml 1560 ml 1200 ml Balance 325 ml 1560 ml 1200 ml Exam Resp - clear CVS- NSR Abd- mildly tender Ext- nt Results Result Diagram: 05/01/17 0548 05/01/17 0548 Results 24 hrs Laboratory Tests Test 04/30/17 15:40 05/01/17 05:48 White Blood Count 10.2 8.8 Red Blood Count 4.05 L 3.96 L Hemoglobin 11.2 L 11.0 L Hematocrit 35.4 L 34.5 L Mean Corpuscular Volume 87.4 87.1 Mean Corpuscular Hemoglobin 27.7 L 27.8 L Mean Corpuscular Hemoglobin Concent 31.6 L 31.9 L Red Cell Distribution Width 14.7 H 15.0 H Platelet Count 337 333 Mean Platelet Volume 9.4 9.5 Neutrophils % 59.4 57.6 Lymphocytes % 30.6 32.2 Monocytes % 8.0 8.1 Eosinophils % 1.4 1.7 Basophils % 0.3 0.3 Nucleated Red Blood Cells % 0.0 0.0 Neutrophils # 6.1 5.1 Lymphocytes # 3.1 H 2.8 Monocytes # 0.8 0.7 Eosinophils # 0.1 0.2 Basophils # 0.0 0.0 Nucleated Red Blood Cells # 0.0 0.0 Sodium Level 141 142 Potassium Level 4.4 4.2 Chloride Level 111 H 111 H Carbon Dioxide Level 24 24 Anion Gap 10 11 Blood Urea Nitrogen 9 6 L Creatinine 0.68 0.67 Glucose Level 74 71 Calcium Level 9.1 9.2 Medications Medications Current Medications Escitalopram Oxalate (Lexapro) 40 mg DAILY PO Last administered on 05/01/17 09 :03; Admin Dose 40 MG; Start 04/28/17 at 22:00 Ondansetron HCl (Zofran Inj) 4 mg Q4H PRN IV NAUSEA AND/OR VOMITING Last administered on 04/30/17 12:41; Admin Dose 4 MG; Start 04/28/17 at 21:00 Medroxyprogesterone Acetate (Provera) 20 mg TID PO Last administered on 09:03; Admin Dose 20 MG; Start 04/28/17 at 21:00 Oxycodone/ Acetaminophen (Percocet (5/ 325)) 1 tab Q4H PRN PO PAIN Last administered on 04/30/17 12:36; Admin Dose 1 TAB; Start 04/28/17 at 21:00 Sumatriptan Succinate (Imitrex) 100 mg DAILY PRN PO migraine headache Last administered on 05/01/17 11:10; Admin Dose 100 MG; Start 04/28/17 at 21:00 Trazodone HCl (Desyrel) 150 mg HS PO Last administered on 04/30/17 20:56; Admin Dose 150 MG; Start 04/28/17 at 21:00 Acetaminophen (Tylenol Tab) 650 mg Q4H PRN PO PAIN AND OR ELEVATED TEMP; Start 04/28/17 at 21:00 Nicotine (Nicoderm 14 Mg/ 24hr) 1 patch DAILY TRANSDERM Last administered on 09:04; Admin Dose 1 PATCH; Start 04/29/17 at 09:00 Alprazolam 0.5 mg 0.5 mg BID PRN PO anxiety Last administered on 04/29/17 06: 20; Admin Dose 0.5 MG; Start 04/29/17 at 06:30 Sodium Chloride (NS) 1,000 ml @ 75 mls/hr [id number] IV Last administered on 05/01 00:16; Admin Dose 75 MLS/HR; Start 04/29/17 at 07:30 Morphine Sulfate (morphine) 4 mg Q3H PRN IV SEVERE PAIN LEVEL 7-10 Last administered on 05/01/17 04:08; Admin Dose 4 MG; Start 04/29/17 at 19:00 Mupirocin (Bactroban) 1 applic BID TOP Last administered on 05/01/17 09:03; Admin Dose 1 APPLIC; Start 04/30/17 at 11:00; Stop 05/06/17 at 21:01 Docusate Sodium (Colace) 100 mg BID PO Last administered on 05/01/17 09:03; Admin Dose 100 MG; Start 04/30/17 at 21:00 Bisacodyl (Dulcolax) 5 mg DAILY PRN PO CONSTIPATION Last administered on 17:50; Admin Dose 5 MG; Start 04/30/17 at 16:00 OH HUITRON MD May 01, 2017 12:26
--- NOTE | 2017-05-01 18:13 | PN ---
Date/Time of Note Date/Time of Note DATE: 05/01/17 TIME: 18:09 Assessment/Plan VTE Prophylaxis VTE Prophylaxis Intervention: SCD's Lines/Catheters IV Catheter Type (from [facility]): Peripheral IV Urinary Cath still in place: No Assessment/Plan Chief Complaint/Hosp Course Patient denies any nausea vomiting, continues to have vaginal bleeding approximately 3 saturated pads per 12 hour shift Problems: Assessment/Plan - Vaginal bleed due to uterine fibroid. Dr. Pate is following in surgical consultation. Plan is for surgery upon OR availability. - Anemia secondary to vaginal bleed, status post blood transfusion at another facility, continue to monitor hemoglobin and hematocrit. Further recommendations based on clinical course. Plan of care discussed with Dr. Hooks. Exam/Review of Systems Vital Signs Vitals Vital Signs Date Time Temp Pulse Resp B/P Pulse Ox O2 Delivery O2 Flow Rate FiO2 05/01/17 07:28 98.3 72 16 125/68 95 04/28/17 18:29 Room Air Intake and Output 04/30/17 04/30/17 05/01/17 15:00 23:00 07:00 Intake Total 325 ml 1560 ml 1200 ml Balance 325 ml 1560 ml 1200 ml Exam Constitutional: alert, oriented Psych: anxiety Head: normocephalic Neck: supple Respiratory: clear to auscultation Cardiovascular: nl pulses Gastrointestinal: non-tender, soft Extremities: normal pulses Neurological: nl mental status Results Result Diagram: 05/01/17 0548 05/01/17 0548 Results 24 hrs Laboratory Tests Test 05/01/17 05:48 White Blood Count 8.8 Red Blood Count 3.96 L Hemoglobin 11.0 L Hematocrit 34.5 L Mean Corpuscular Volume 87.1 Mean Corpuscular Hemoglobin 27.8 L Mean Corpuscular Hemoglobin Concent 31.9 L Red Cell Distribution Width 15.0 H Platelet Count 333 Mean Platelet Volume 9.5 Neutrophils % 57.6 Lymphocytes % 32.2 Monocytes % 8.1 Eosinophils % 1.7 Basophils % 0.3 Nucleated Red Blood Cells % 0.0 Neutrophils # 5.1 Lymphocytes # 2.8 Monocytes # 0.7 Eosinophils # 0.2 Basophils # 0.0 Nucleated Red Blood Cells # 0.0 Sodium Level 142 Potassium Level 4.2 Chloride Level 111 H Carbon Dioxide Level 24 Anion Gap 11 Blood Urea Nitrogen 6 L Creatinine 0.67 Glucose Level 71 Calcium Level 9.2 Medications Medications Current Medications Escitalopram Oxalate (Lexapro) 40 mg DAILY PO Last administered on 05/01/17 09 :03; Admin Dose 40 MG; Start 04/28/17 at 22:00 Ondansetron HCl (Zofran Inj) 4 mg Q4H PRN IV NAUSEA AND/OR VOMITING Last administered on 04/30/17 12:41; Admin Dose 4 MG; Start 04/28/17 at 21:00 Medroxyprogesterone Acetate (Provera) 20 mg TID PO Last administered on 13:19; Admin Dose 20 MG; Start 04/28/17 at 21:00 Oxycodone/ Acetaminophen (Percocet (5/ 325)) 1 tab Q4H PRN PO PAIN Last administered on 04/30/17 12:36; Admin Dose 1 TAB; Start 04/28/17 at 21:00 Sumatriptan Succinate (Imitrex) 100 mg DAILY PRN PO migraine headache Last administered on 05/01/17 11:10; Admin Dose 100 MG; Start 04/28/17 at 21:00 Trazodone HCl (Desyrel) 150 mg HS PO Last administered on 04/30/17 20:56; Admin Dose 150 MG; Start 04/28/17 at 21:00 Acetaminophen (Tylenol Tab) 650 mg Q4H PRN PO PAIN AND OR ELEVATED TEMP; Start 04/28/17 at 21:00 Nicotine (Nicoderm 14 Mg/ 24hr) 1 patch DAILY TRANSDERM Last administered on 09:04; Admin Dose 1 PATCH; Start 04/29/17 at 09:00 Alprazolam 0.5 mg 0.5 mg BID PRN PO anxiety Last administered on 04/29/17 06: 20; Admin Dose 0.5 MG; Start 04/29/17 at 06:30 Sodium Chloride (NS) 1,000 ml @ 75 mls/hr [id number] IV Last administered on 05/01 13:19; Admin Dose 75 MLS/HR; Start 04/29/17 at 07:30 Morphine Sulfate (morphine) 4 mg Q3H PRN IV SEVERE PAIN LEVEL 7-10 Last administered on 05/01/17 13:19; Admin Dose 4 MG; Start 04/29/17 at 19:00 Mupirocin (Bactroban) 1 applic BID TOP Last administered on 05/01/17 09:03; Admin Dose 1 APPLIC; Start 04/30/17 at 11:00; Stop 05/06/17 at 21:01 Docusate Sodium (Colace) 100 mg BID PO Last administered on 05/01/17 09:03; Admin Dose 100 MG; Start 04/30/17 at 21:00 Bisacodyl (Dulcolax) 5 mg DAILY PRN PO CONSTIPATION Last administered on 17:50; Admin Dose 5 MG; Start 04/30/17 at 16:00 BERNARDO GRAJEDA May 01, 2017 18:13
[2017-05-01 20:00] VITALS: BP 126/60; RESP 20
[2017-05-01] MEDS: traZODone 100 MG TAB PO SCH (20:36)
[2017-05-02] MEDS: SOD CHLORIDE 0.9% 1,000 ML IV SCH ×3 (03:18→19:41)
[2017-05-02 06:04] LABS: ADD SCAN DIFF NO; BASOPHILS % 0.4 % (0.0-2.0); EOSINOPHILS # 0.2 10^3/ul (0.0-0.5); EOSINOPHILS % 2.4 % (0.0-7.0); HEMATOCRIT 33.4 % (37.0-47.0); HEMOGLOBIN 10.5 g/dl (12.0-16.0); LYMPHOCYTES % 38.4 % (15.0-51.0); MEAN CORPUSCULAR HEMOGLOBIN 27.5 pg (29.0-33.0); MEAN CORPUSCULAR HGB CONC 31.4 g/dl (32.0-37.0); MEAN CORPUSCULAR VOLUME 87.4 fl (82.0-101.0); MEAN PLATELET VOLUME 9.5 fl (7.4-10.4); MONOCYTE # 0.6 10^3/ul (0.3-0.9); MONOCYTES % 7.8 % (0.0-11.0); NEUTROPHILS % 50.9 % (39.0-77.0); PLATELET COUNT 322 10^3/UL (140-415); RED BLOOD COUNT 3.82 10^6/ul (4.20-5.40); WHITE BLOOD COUNT 7.8 10^3/ul (4.8-10.8)
[2017-05-02 06:20] LABS: CALCIUM 8.5 mg/dl (8.4-10.2); CREATININE 0.67 mg/dl (0.44-1.00); POTASSIUM 3.8 mmol/L (3.5-5.1)
[2017-05-02 07:59] VITALS: BP 125/72; RESP 18
[2017-05-02] MEDS: SUMATRIPTAN 50 MG TAB PO PRN (09:15)
[2017-05-02] MEDS: NICOTINE (14 MG/24 HR) PATCH TRANSDERM SCH (09:16)
[2017-05-02] MEDS: MEDROXYPROGESTERONE 10 MG TAB PO SCH ×3 (09:16→21:12)
[2017-05-02] MEDS: MUPIROCIN 2% 22 GM OINT TOP SCH ×2 (09:16→21:13)
[2017-05-02] MEDS: ESCITALOPRAM 10 MG TAB PO SCH (09:16)
[2017-05-02] MEDS: DOCUSATE SODIUM 100 MG CAP PO SCH ×2 (09:16→21:11)
[2017-05-02] MEDS: morphine 4 MG/ML VIAL IV PRN ×4 (12:27→23:34)
[2017-05-02] MEDS: OXYCODONE/ACETAMINOPHEN (5/325) TAB PO PRN ×2 (13:31→17:36)
[2017-05-02] MEDS ORDERED: PEG/ELECTROLYTES 4L BTL PO ONE (16:00)
[2017-05-02] MEDS: ONDANSETRON 4 MG INJ IV PRN (17:38)
--- NOTE | 2017-05-02 18:30 | PN ---
Date/Time of Note Date/Time of Note DATE: 05/02/17 TIME: 18:28 Assessment/Plan VTE Prophylaxis VTE Prophylaxis Intervention: SCD's Lines/Catheters IV Catheter Type (from [facility]): Peripheral IV Urinary Cath still in place: No Assessment/Plan Chief Complaint/Hosp Course Patient's complains of abdominal pain, continue Percocet and morphine, remains hemodynamically stable. Assessment/Plan - Vaginal bleed due to uterine fibroid. Dr. Pate is following in surgical consultation. Plan is for surgery tomorrow afternoon. - Anemia secondary to vaginal bleed, status post blood transfusion at another facility, continue to monitor hemoglobin and hematocrit. Further recommendations based on clinical course. Plan of care discussed with Dr. Hooks. Problems: Exam/Review of Systems Vital Signs Vitals Vital Signs Date Time Temp Pulse Resp B/P Pulse Ox O2 Delivery O2 Flow Rate FiO2 05/02/17 07:59 98.8 65 18 125/72 97 04/28/17 18:29 Room Air Intake and Output 05/01/17 05/01/17 05/02/17 15:00 23:00 07:00 Intake Total 550 ml 1540 ml 950 ml Balance 550 ml 1540 ml 950 ml Exam Constitutional: alert, oriented Psych: anxiety Head: normocephalic Neck: supple Respiratory: clear to auscultation Cardiovascular: nl pulses Gastrointestinal: non-tender, soft Extremities: normal pulses Neurological: nl mental status Results Result Diagram: 05/02/17 0450 05/02/17 0450 Results 24 hrs Laboratory Tests Test 05/02/17 04:50 White Blood Count 7.8 Red Blood Count 3.82 L Hemoglobin 10.5 L Hematocrit 33.4 L Mean Corpuscular Volume 87.4 Mean Corpuscular Hemoglobin 27.5 L Mean Corpuscular Hemoglobin Concent 31.4 L Red Cell Distribution Width 15.0 H Platelet Count 322 Mean Platelet Volume 9.5 Neutrophils % 50.9 Lymphocytes % 38.4 Monocytes % 7.8 Eosinophils % 2.4 Basophils % 0.4 Nucleated Red Blood Cells % 0.0 Neutrophils # 4.0 Lymphocytes # 3.0 H Monocytes # 0.6 Eosinophils # 0.2 Basophils # 0.0 Nucleated Red Blood Cells # 0.0 Sodium Level 140 Potassium Level 3.8 Chloride Level 111 H Carbon Dioxide Level 25 Anion Gap 8 Blood Urea Nitrogen 7 Creatinine 0.67 Glucose Level 89 Calcium Level 8.5 Medications Medications Current Medications Escitalopram Oxalate (Lexapro) 40 mg DAILY PO Last administered on 05/02/17 09 :16; Admin Dose 40 MG; Start 04/28/17 at 22:00 Ondansetron HCl (Zofran Inj) 4 mg Q4H PRN IV NAUSEA AND/OR VOMITING Last administered on 05/02/17 17:38; Admin Dose 4 MG; Start 04/28/17 at 21:00 Medroxyprogesterone Acetate (Provera) 20 mg TID PO Last administered on 12:28; Admin Dose 20 MG; Start 04/28/17 at 21:00 Oxycodone/ Acetaminophen (Percocet (5/ 325)) 1 tab Q4H PRN PO PAIN Last administered on 05/02/17 17:36; Admin Dose 1 TAB; Start 04/28/17 at 21:00 Sumatriptan Succinate (Imitrex) 100 mg DAILY PRN PO migraine headache Last administered on 05/02/17 09:15; Admin Dose 100 MG; Start 04/28/17 at 21:00 Trazodone HCl (Desyrel) 150 mg HS PO Last administered on 05/01/17 20:36; Admin Dose 150 MG; Start 04/28/17 at 21:00 Acetaminophen (Tylenol Tab) 650 mg Q4H PRN PO PAIN AND OR ELEVATED TEMP; Start 04/28/17 at 21:00 Nicotine (Nicoderm 14 Mg/ 24hr) 1 patch DAILY TRANSDERM Last administered on 09:16; Admin Dose 1 PATCH; Start 04/29/17 at 09:00 Alprazolam 0.5 mg 0.5 mg BID PRN PO anxiety Last administered on 04/29/17 06: 20; Admin Dose 0.5 MG; Start 04/29/17 at 06:30 Sodium Chloride (NS) 1,000 ml @ 75 mls/hr [id number] IV Last administered on 05/02 03:18; Admin Dose 75 MLS/HR; Start 04/29/17 at 07:30 Morphine Sulfate (morphine) 4 mg Q3H PRN IV SEVERE PAIN LEVEL 7-10 Last administered on 05/02/17 15:10; Admin Dose 4 MG; Start 04/29/17 at 19:00 Mupirocin (Bactroban) 1 applic BID TOP Last administered on 05/02/17 09:16; Admin Dose 1 APPLIC; Start 04/30/17 at 11:00; Stop 05/06/17 at 21:01 Docusate Sodium (Colace) 100 mg BID PO Last administered on 05/02/17 09:16; Admin Dose 100 MG; Start 04/30/17 at 21:00 Bisacodyl (Dulcolax) 5 mg DAILY PRN PO CONSTIPATION Last administered on 17:50; Admin Dose 5 MG; Start 04/30/17 at 16:00 Oxycodone/ Acetaminophen (Percocet (5/ 325)) 2 tab Q4H PRN PO PAIN LEVEL 6-10; Start 05/02/17 at 15:30 BERNARDO GRAJEDA May 02, 2017 18:30
[2017-05-02 19:33] VITALS: BP 133/77; RESP 18
[2017-05-02] MEDS: traZODone 100 MG TAB PO SCH (21:12)
[2017-05-03] VITALS (17 sets, daily range): BP systolic 117–145; BP diastolic 67–82; PULSE 58–90; RESP 13–27
[2017-05-03] MEDS: SOD CHLORIDE 0.9% 1,000 ML IV SCH ×3 (06:24→23:35)
[2017-05-03 07:41] LABS: ADD SCAN DIFF NO
[2017-05-03 07:56] LABS: BASOPHILS % 0.5 % (0.0-2.0); EOSINOPHILS # 0.2 10^3/ul (0.0-0.5); EOSINOPHILS % 2.5 % (0.0-7.0); HEMATOCRIT 32.5 % (37.0-47.0); HEMOGLOBIN 10.7 g/dl (12.0-16.0); LYMPHOCYTES # 2.7 10^3/ul (0.8-2.9); LYMPHOCYTES % 36.4 % (15.0-51.0); MEAN CORPUSCULAR HEMOGLOBIN 28.2 pg (29.0-33.0); MEAN CORPUSCULAR HGB CONC 32.9 g/dl (32.0-37.0); MEAN CORPUSCULAR VOLUME 85.5 fl (82.0-101.0); MEAN PLATELET VOLUME 9.3 fl (7.4-10.4); MONOCYTE # 0.5 10^3/ul (0.3-0.9); MONOCYTES % 6.8 % (0.0-11.0); NEUTROPHILS % 53.5 % (39.0-77.0); PLATELET COUNT 317 10^3/UL (140-415); RED CELL DISTRIBUTION WIDTH 14.8 % (11.5-14.5); WHITE BLOOD COUNT 7.5 10^3/ul (4.8-10.8)
[2017-05-03 08:00] LABS: INR 1.02; PROTIME 13.4 Sec (12.2-14.2)
[2017-05-03 08:01] LABS: THROMBIN TIME 15.9 SEC (13.8-19.1)
[2017-05-03 08:11] LABS: CALCIUM 8.7 mg/dl (8.4-10.2); CREATININE 0.65 mg/dl (0.44-1.00)
[2017-05-03] MEDS: MEDROXYPROGESTERONE 10 MG TAB PO SCH ×3 (09:00→21:00)
[2017-05-03] MEDS: ESCITALOPRAM 10 MG TAB PO SCH (09:00)
[2017-05-03] MEDS: DOCUSATE SODIUM 100 MG CAP PO SCH ×2 (09:00→21:00)
[2017-05-03] MEDS: NICOTINE (14 MG/24 HR) PATCH TRANSDERM SCH (09:31)
[2017-05-03] MEDS: MUPIROCIN 2% 22 GM OINT TOP SCH ×2 (09:31→21:00)
[2017-05-03] MEDS: SUMATRIPTAN 50 MG TAB PO PRN (10:13)
--- NOTE | 2017-05-03 11:55 | HPN ---
Date/Time of Note Date/Time of Note DATE: 05/03/17 TIME: 11:55 Interval H&P Admission Note Pt. seen H&P reviewed: No system changes CHRIS HUITRON MD May 03, 2017 11:55
--- NOTE | 2017-05-03 12:58 | PN ---
Date/Time of Note Date/Time of Note DATE: 05/03/17 TIME: 12:57 Assessment/Plan VTE Prophylaxis VTE Prophylaxis Intervention: SCD's Lines/Catheters IV [facility] Type (from [facility]): Peripheral IV Urinary Cath still in place: No Assessment/Plan Chief Complaint/Hosp Course No acute events overnight, pain is well controlled, NPO for surgery. Assessment/Plan - Vaginal bleed due to uterine fibroid. Dr. Pate is following in surgical consultation. Pending laparoscopic hysterectomy today. - Anemia secondary to vaginal bleed, status post blood transfusion at another facility, continue to monitor hemoglobin and hematocrit. Further recommendations based on clinical course. Plan of care discussed with Dr. Hooks. Problems: Exam/Review of Systems Vital Signs Vitals Vital Signs Date Time Temp Pulse Resp B/P Pulse Ox O2 Delivery O2 Flow Rate FiO2 05/03/17 08:22 98.8 68 18 122/68 94 Intake and Output 05/02/17 05/02/17 05/03/17 15:00 23:00 07:00 Intake Total 500 ml 2130 ml 1400 ml Balance 500 ml 2130 ml 1400 ml Exam Constitutional: alert, oriented Psych: anxiety Head: normocephalic Neck: supple Respiratory: clear to auscultation Cardiovascular: nl pulses Gastrointestinal: non-tender, soft Extremities: normal pulses Neurological: nl mental status Results Result Diagram: 05/03/17 0703 05/03/17 0703 Results 24 hrs Laboratory Tests Test 05/03/17 07:03 White Blood Count 7.5 Red Blood Count 3.80 L Hemoglobin 10.7 L Hematocrit 32.5 L Mean Corpuscular Volume 85.5 Mean Corpuscular Hemoglobin 28.2 L Mean Corpuscular Hemoglobin Concent 32.9 Red Cell Distribution Width 14.8 H Platelet Count 324 Mean Platelet Volume 9.3 Neutrophils % 53.5 Lymphocytes % 36.4 Monocytes % 6.8 Eosinophils % 2.5 Basophils % 0.5 Nucleated Red Blood Cells % 0.0 Neutrophils # 4.0 Lymphocytes # 2.7 Monocytes # 0.5 Eosinophils # 0.2 Basophils # 0.0 Nucleated Red Blood Cells # 0.0 Prothrombin Time 13.4 Prothrombin Time Ratio 1.0 INR International Normalized Ratio 1.02 Activated Partial Thromboplast Time 26.0 Thrombin Time 15.9 Sodium Level 144 Potassium Level 4.0 Chloride Level 113 H Carbon Dioxide Level 23 Anion Gap 12 Blood Urea Nitrogen 5 L Creatinine 0.65 Glucose Level 79 Calcium Level 8.7 Medications Medications Current Medications Escitalopram Oxalate (Lexapro) 40 mg DAILY PO Last administered on 05/02/17 09 :16; Admin Dose 40 MG; Start 04/28/17 at 22:00 Ondansetron HCl (Zofran Inj) 4 mg Q4H PRN IV NAUSEA AND/OR VOMITING Last administered on 05/02/17 17:38; Admin Dose 4 MG; Start 04/28/17 at 21:00 Medroxyprogesterone Acetate (Provera) 20 mg TID PO Last administered on 21:12; Admin Dose 20 MG; Start 04/28/17 at 21:00 Oxycodone/ Acetaminophen (Percocet (5/ 325)) 1 tab Q4H PRN PO PAIN Last administered on 05/02/17 17:36; Admin Dose 1 TAB; Start 04/28/17 at 21:00 Sumatriptan Succinate (Imitrex) 100 mg DAILY PRN PO migraine headache Last administered on 05/03/17 10:13; Admin Dose 100 MG; Start 04/28/17 at 21:00 Trazodone HCl (Desyrel) 150 mg HS PO Last administered on 05/02/17 21:12; Admin Dose 150 MG; Start 04/28/17 at 21:00 Acetaminophen (Tylenol Tab) 650 mg Q4H PRN PO PAIN AND OR ELEVATED TEMP; Start 04/28/17 at 21:00 Nicotine (Nicoderm 14 Mg/ 24hr) 1 patch DAILY TRANSDERM Last administered on 09:31; Admin Dose 1 PATCH; Start 04/29/17 at 09:00 Alprazolam 0.5 mg 0.5 mg BID PRN PO anxiety Last administered on 04/29/17 06: 20; Admin Dose 0.5 MG; Start 04/29/17 at 06:30 Sodium Chloride (NS) 1,000 ml @ 75 mls/hr [id number] IV Last administered on 05/03 06:24; Admin Dose 75 MLS/HR; Start 04/29/17 at 07:30 Morphine Sulfate (morphine) 4 mg Q3H PRN IV SEVERE PAIN LEVEL 7-10 Last administered on 05/02/17 23:34; Admin Dose 4 MG; Start 04/29/17 at 19:00 Mupirocin (Bactroban) 1 applic BID TOP Last administered on 05/03/17 09:31; Admin Dose 1 APPLIC; Start 04/30/17 at 11:00; Stop 05/06/17 at 21:01 Docusate Sodium (Colace) 100 mg BID PO Last administered on 05/02/17 21:11; Admin Dose 100 MG; Start 04/30/17 at 21:00 Bisacodyl (Dulcolax) 5 mg DAILY PRN PO CONSTIPATION Last administered on 17:50; Admin Dose 5 MG; Start 04/30/17 at 16:00 Oxycodone/ Acetaminophen (Percocet (5/ 325)) 2 tab Q4H PRN PO PAIN LEVEL 6-10; Start 05/02/17 at 15:30 BERNARDO GRAJEDA May 03, 2017 12:58
[2017-05-03] MEDS ORDERED: THROMBIN 5000 UNIT VIAL ONE (18:00)
[2017-05-03] MEDS ORDERED: VASOPRESSIN 20 UNITS INJ ONE (18:02)
[2017-05-03] MEDS ORDERED: METHYLENE BLUE 1% 10 ML INJ ONE (18:06)
[2017-05-03] MEDS ORDERED: ROCURONIUM 50 MG INJ ONE ×2 (18:08→20:54)
[2017-05-03] MEDS ORDERED: MIDAZOLAM 1 MG/ML 2 ML INJ ONE (18:08)
[2017-05-03] MEDS ORDERED: PROPOFOL 20 ML ONE (18:08)
[2017-05-03] MEDS ORDERED: METOCLOPRAMIDE 10 MG INJ ONE (18:09)
[2017-05-03] MEDS ORDERED: morphine SULFATE/PF (10 MG/10 ML) INJ ONE (18:09)
[2017-05-03] MEDS ORDERED: CEFAZOLIN 1 GM INJ ONE (18:41)
[2017-05-03] MEDS ORDERED: NEOSTIGMINE 3 MG/3 ML SYRINGE ONE (20:54)
[2017-05-03] MEDS ORDERED: ROPIVACAINE 0.5 % 30 ML VIAL ONE (20:54)
[2017-05-03] MEDS ORDERED: GLYCOPYRROLATE 0.4 MG INJ ONE (20:54)
[2017-05-03] MEDS ORDERED: ONDANSETRON 4 MG INJ ONE (20:55)
[2017-05-03] MEDS: traZODone 100 MG TAB PO SCH (21:00)
[2017-05-03] MEDS ORDERED: MEPERIDINE 25 MG INJ IV PRN (21:00)
[2017-05-03] MEDS ORDERED: HYDROmorphONE (0.2 MG/ML) 10ML SYG IV PRN ×2 (21:00)
[2017-05-03] MEDS ORDERED: DIPHENHYDRAMINE 50 MG INJ IV PRN (21:00)
[2017-05-03] MEDS ORDERED: ONDANSETRON 4 MG INJ IV PRN (21:00)
[2017-05-03] MEDS ORDERED: METOCLOPRAMIDE 10 MG INJ IV PRN (21:00)
[2017-05-03] MEDS: ONDANSETRON 4 MG INJ IV PRN (21:44)
[2017-05-03] MEDS: HYDROmorphONE (0.2 MG/ML) 10ML SYG IV PRN ×2 (22:01→22:38)
[2017-05-03 22:42] LABS: ADD UMIC YES; UR ASCORBIC ACID NEGATIVE (NEGATIVE); UR BILIRUBIN (Dip) NEGATIVE (NEGATIVE); UR BLOOD (Dip) 1+ mg/dL (NEGATIVE); UR CLARITY CLEAR (CLEAR); UR COLOR STRAW (YELLOW); UR GLUCOSE (Dip) NEGATIVE (NEGATIVE); UR KETONES (Dip) TRACE mg/dL (NEGATIVE); UR LEUKOCYTE ESTERASE (Dip) NEGATIVE Leu/ul (NEGATIVE); UR NITRITE (Dip) NEGATIVE (NEGATIVE); UR RBC 4 /HPF (0-5); UR SPECIFIC GRAVITY (Dip) 1.012 (1.003-1.030); UR TOTAL PROTEIN (Dip) NEGATIVE (NEGATIVE); UR UROBILINOGEN (Dip) NEGATIVE (NEGATIVE)
[2017-05-04] MEDS: morphine 4 MG/ML VIAL IV PRN ×6 (01:04→20:38)
[2017-05-04] MEDS: traZODone 100 MG TAB PO SCH ×2 (02:02→20:45)
[2017-05-04] MEDS: SOD CHLORIDE 0.9% 1,000 ML IV SCH ×3 (07:26→20:50)
[2017-05-04 08:04] VITALS: BP 97/54; RESP 18
[2017-05-04] MEDS: MEDROXYPROGESTERONE 10 MG TAB PO SCH ×3 (09:25→20:45)
[2017-05-04] MEDS: DOCUSATE SODIUM 100 MG CAP PO SCH ×2 (09:25→20:45)
[2017-05-04] MEDS: ESCITALOPRAM 10 MG TAB PO SCH (09:25)
[2017-05-04] MEDS: NICOTINE (14 MG/24 HR) PATCH TRANSDERM SCH (09:26)
[2017-05-04] MEDS: MUPIROCIN 2% 22 GM OINT TOP SCH ×2 (09:26→20:41)
[2017-05-04 09:45] LABS: ADD SCAN DIFF NO
[2017-05-04 09:48] LABS: BASOPHILS % 0.4 % (0.0-2.0); EOSINOPHILS # 0.1 10^3/ul (0.0-0.5); EOSINOPHILS % 1.6 % (0.0-7.0); HEMATOCRIT 32.4 % (37.0-47.0); HEMOGLOBIN 10.8 g/dl (12.0-16.0); LYMPHOCYTES # 1.5 10^3/ul (0.8-2.9); LYMPHOCYTES % 18.3 % (15.0-51.0); MEAN CORPUSCULAR HEMOGLOBIN 28.1 pg (29.0-33.0); MEAN CORPUSCULAR HGB CONC 33.3 g/dl (32.0-37.0); MEAN CORPUSCULAR VOLUME 84.2 fl (82.0-101.0); MEAN PLATELET VOLUME 8.6 fl (7.4-10.4); MONOCYTE # 0.7 10^3/ul (0.3-0.9); MONOCYTES % 8.3 % (0.0-11.0); NEUTROPHIL # 5.8 10^3/ul (1.6-7.5); NEUTROPHILS % 71.2 % (39.0-77.0); PLATELET COUNT 302 10^3/UL (140-415); RED BLOOD COUNT 3.85 10^6/ul (4.20-5.40); RED CELL DISTRIBUTION WIDTH 14.4 % (11.5-14.5); WHITE BLOOD COUNT 8.1 10^3/ul (4.8-10.8)
[2017-05-04 10:08] LABS: CALCIUM 8.6 mg/dl (8.4-10.2); CREATININE 0.72 mg/dl (0.44-1.00); POTASSIUM 3.6 mmol/L (3.5-5.1)
--- NOTE | 2017-05-04 12:19 | PN ---
Date/Time of Note Date/Time of Note DATE: 05/04/17 TIME: 12:16 Assessment/Plan VTE Prophylaxis VTE Prophylaxis Intervention: SCD's Lines/Catheters IV Catheter Type (from [facility]): Peripheral IV Urinary Cath still in place: Yes Subjective 24 Hr Interval Summary Free Text/Dictation anesthesia note: A 46 year female s/p laparoscopic hysterectomy pod#1 id fine, no headache, back pain, N/V. little itching on one of the port incision. pain is controlled. v/s stable Exam/Review of Systems Vital Signs Vitals Vital Signs Date Time Temp Pulse Resp B/P Pulse Ox O2 Delivery O2 Flow Rate FiO2 05/04/17 08:04 98.0 69 18 97/54 93 05/03/17 23:14 Room Air 05/03/17 22:26 2.0 Intake and Output 05/03/17 05/03/17 05/04/17 15:00 23:00 07:00 Intake Total 2625 ml 500 ml Output Total 480 ml Balance 2145 ml 500 ml Results Result Diagram: 05/04/17 0920 05/04/17 0920 Results 24 hrs Laboratory Tests Test 05/03/17 21:50 05/04/17 09:20 Urine Color STRAW Urine Clarity CLEAR Urine pH 5.0 Urine Specific [place] 1.012 Urine Ketones TRACE A Urine Nitrite NEGATIVE Urine Bilirubin NEGATIVE Urine Urobilinogen NEGATIVE Urine Leukocyte Esterase NEGATIVE Urine Microscopic RBC 4 Urine Microscopic WBC 0 Urine Hemoglobin 1+ H Urine Glucose NEGATIVE Urine Total Protein NEGATIVE White Blood Count 8.1 Red Blood Count 3.85 L Hemoglobin 10.8 L Hematocrit 32.4 L Mean Corpuscular Volume 84.2 Mean Corpuscular Hemoglobin 28.1 L Mean Corpuscular Hemoglobin Concent 33.3 Red Cell Distribution Width 14.4 Platelet Count 302 Mean Platelet Volume 8.6 Neutrophils % 71.2 Lymphocytes % 18.3 Monocytes % 8.3 Eosinophils % 1.6 Basophils % 0.4 Nucleated Red Blood Cells % 0.0 Neutrophils # 5.8 Lymphocytes # 1.5 Monocytes # 0.7 Eosinophils # 0.1 Basophils # 0.0 Nucleated Red Blood Cells # 0.0 Sodium Level 136 Potassium Level 3.6 Chloride Level 106 Carbon Dioxide Level 26 Anion Gap 8 Blood Urea Nitrogen 6 L Creatinine 0.72 Glucose Level 103 Calcium Level 8.6 Medications Medications Current Medications Escitalopram Oxalate (Lexapro) 40 mg DAILY PO Last administered on 05/04/17 09 :25; Admin Dose 40 MG; Start 04/28/17 at 22:00 Ondansetron HCl (Zofran Inj) 4 mg Q4H PRN IV NAUSEA AND/OR VOMITING Last administered on 05/03/17 21:44; Admin Dose 4 MG; Start 04/28/17 at 21:00 Medroxyprogesterone Acetate (Provera) 20 mg TID PO Last administered on 09:25; Admin Dose 20 MG; Start 04/28/17 at 21:00 Oxycodone/ Acetaminophen (Percocet (5/ 325)) 1 tab Q4H PRN PO PAIN Last administered on 05/02/17 17:36; Admin Dose 1 TAB; Start 04/28/17 at 21:00 Sumatriptan Succinate (Imitrex) 100 mg DAILY PRN PO migraine headache Last administered on 05/03/17 10:13; Admin Dose 100 MG; Start 04/28/17 at 21:00 Trazodone HCl (Desyrel) 150 mg HS PO Last administered on 05/04/17 02:02; Admin Dose 150 MG; Start 04/28/17 at 21:00 Acetaminophen (Tylenol Tab) 650 mg Q4H PRN PO PAIN AND OR ELEVATED TEMP; Start 04/28/17 at 21:00 Nicotine (Nicoderm 14 Mg/ 24hr) 1 patch DAILY TRANSDERM Last administered on 09:26; Admin Dose 1 PATCH; Start 04/29/17 at 09:00 Alprazolam 0.5 mg 0.5 mg BID PRN PO anxiety Last administered on 04/29/17 06: 20; Admin Dose 0.5 MG; Start 04/29/17 at 06:30 Sodium Chloride (NS) 1,000 ml @ 75 mls/hr [id number] IV Last administered on 05/03 23:35; Admin Dose 75 MLS/HR; Start 04/29/17 at 07:30 Morphine Sulfate (morphine) 4 mg Q3H PRN IV SEVERE PAIN LEVEL 7-10 Last administered on 05/04/17 10:34; Admin Dose 4 MG; Start 04/29/17 at 19:00 Mupirocin (Bactroban) 1 applic BID TOP Last administered on 05/04/17 09:26; Admin Dose 1 APPLIC; Start 04/30/17 at 11:00; Stop 05/06/17 at 21:01 Docusate Sodium (Colace) 100 mg BID PO Last administered on 05/04/17 09:25; Admin Dose 100 MG; Start 04/30/17 at 21:00 Bisacodyl (Dulcolax) 5 mg DAILY PRN PO CONSTIPATION Last administered on 17:50; Admin Dose 5 MG; Start 04/30/17 at 16:00 Oxycodone/ Acetaminophen (Percocet (5/ 325)) 2 tab Q4H PRN PO PAIN LEVEL 6-10; Start 05/02/17 at 15:30 KEMAR SALGADO MD May 04, 2017 12:19
--- NOTE | 2017-05-04 13:58 | PN ---
Date/Time of Note Date/Time of Note DATE: 05/04/17 TIME: 13:54 Assessment/Plan VTE Prophylaxis VTE Prophylaxis Intervention: other Lines/Catheters IV [facility] Type (from [facility]): Peripheral IV Urinary Cath still in place: Yes Assessment/Plan Assessment/Plan - Vaginal bleed due to uterine fibroid. - per Dr. Pate in surgical consultation. - SP laparoscopic hysterectomy - per surgery - Anemia secondary to vaginal bleed, status post blood transfusion at another facility, continue to monitor hemoglobin and hematocrit. - urinary retention- fc was dcd tis am but patient was unable to urinate. Fc reinserted per surgery - cont FC per sx Further recommendations based on clinical course. Plan of care discussed with Dr. Hooks. Subjective 24 Hr Interval Summary Free Text/Dictation c/o urinary retention- fc was dcd this am but patient was unable to urinate. Fc reinserted per surgery- to dc in am. dw staff Respiratory: no complaints Cardiovascular: no complaints Gastrointestinal: no complaints Genitourinary: bleeding Musculoskeletal: no complaints Exam/Review of Systems Vital Signs Vitals Vital Signs Date Time Temp Pulse Resp B/P Pulse Ox O2 Delivery O2 Flow Rate FiO2 05/04/17 08:04 98.0 69 18 97/54 93 05/03/17 23:14 Room Air 05/03/17 22:26 2.0 Intake and Output 05/03/17 05/03/17 05/04/17 15:00 23:00 07:00 Intake Total 2625 ml 500 ml Output Total 480 ml Balance 2145 ml 500 ml Exam Constitutional: alert, oriented, well developed Respiratory: clear to auscultation, normal air movement Cardiovascular: nl pulses, regular rate and rhythm Gastrointestinal: non-tender, soft Genitourinary - Female: other (surgical pain -sp laproscopy) Musculoskeletal: nl extremities to inspection Extremities: normal pulses Neurological: nl mental status, nl speech Skin: other Results Result Diagram: 05/04/1791905/04/17919 Results 24 hrs Laboratory Tests Test 05/03/17 21:50 05/04/17 09:20 Urine Color STRAW Urine Clarity CLEAR Urine pH 5.0 Urine Specific [place] 1.012 Urine Ketones TRACE A Urine Nitrite NEGATIVE Urine Bilirubin NEGATIVE Urine Urobilinogen NEGATIVE Urine Leukocyte Esterase NEGATIVE Urine Microscopic RBC 4 Urine Microscopic WBC 0 Urine Hemoglobin 1+ H Urine Glucose NEGATIVE Urine Total Protein NEGATIVE White Blood Count 8.1 Red Blood Count 3.85 L Hemoglobin 10.8 L Hematocrit 32.4 L Mean Corpuscular Volume 84.2 Mean Corpuscular Hemoglobin 28.1 L Mean Corpuscular Hemoglobin Concent 33.3 Red Cell Distribution Width 14.4 Platelet Count 302 Mean Platelet Volume 8.6 Neutrophils % 71.2 Lymphocytes % 18.3 Monocytes % 8.3 Eosinophils % 1.6 Basophils % 0.4 Nucleated Red Blood Cells % 0.0 Neutrophils # 5.8 Lymphocytes # 1.5 Monocytes # 0.7 Eosinophils # 0.1 Basophils # 0.0 Nucleated Red Blood Cells # 0.0 Sodium Level 136 Potassium Level 3.6 Chloride Level 106 Carbon Dioxide Level 26 Anion Gap 8 Blood Urea Nitrogen 6 L Creatinine 0.72 Glucose Level 103 Calcium Level 8.6 Medications Medications Current Medications Escitalopram Oxalate (Lexapro) 40 mg DAILY PO Last administered on 05/04/17 09 :25; Admin Dose 40 MG; Start 04/28/17 at 22:00 Ondansetron HCl (Zofran Inj) 4 mg Q4H PRN IV NAUSEA AND/OR VOMITING Last administered on 05/03/17 21:44; Admin Dose 4 MG; Start 04/28/17 at 21:00 Medroxyprogesterone Acetate (Provera) 20 mg TID PO Last administered on 13:11; Admin Dose 20 MG; Start 04/28/17 at 21:00 Oxycodone/ Acetaminophen (Percocet (5/ 325)) 1 tab Q4H PRN PO PAIN Last administered on 05/02/17 17:36; Admin Dose 1 TAB; Start 04/28/17 at 21:00 Sumatriptan Succinate (Imitrex) 100 mg DAILY PRN PO migraine headache Last administered on 05/03/17 10:13; Admin Dose 100 MG; Start 04/28/17 at 21:00 Trazodone HCl (Desyrel) 150 mg HS PO Last administered on 05/04/17 02:02; Admin Dose 150 MG; Start 04/28/17 at 21:00 Acetaminophen (Tylenol Tab) 650 mg Q4H PRN PO PAIN AND OR ELEVATED TEMP; Start 04/28/17 at 21:00 Nicotine (Nicoderm 14 Mg/ 24hr) 1 patch DAILY TRANSDERM Last administered on 09:26; Admin Dose 1 PATCH; Start 04/29/17 at 09:00 Alprazolam 0.5 mg 0.5 mg BID PRN PO anxiety Last administered on 04/29/17 06: 20; Admin Dose 0.5 MG; Start 04/29/17 at 06:30 Sodium Chloride (NS) 1,000 ml @ 75 mls/hr [id number] IV Last administered on 05/04 13:12; Admin Dose 75 MLS/HR; Start 04/29/17 at 07:30 Morphine Sulfate (morphine) 4 mg Q3H PRN IV SEVERE PAIN LEVEL 7-10 Last administered on 05/04/17 13:16; Admin Dose 4 MG; Start 04/29/17 at 19:00 Mupirocin (Bactroban) 1 applic BID TOP Last administered on 05/04/17 09:26; Admin Dose 1 APPLIC; Start 04/30/17 at 11:00; Stop 05/06/17 at 21:01 Docusate Sodium (Colace) 100 mg BID PO Last administered on 05/04/17 09:25; Admin Dose 100 MG; Start 04/30/17 at 21:00 Bisacodyl (Dulcolax) 5 mg DAILY PRN PO CONSTIPATION Last administered on 17:50; Admin Dose 5 MG; Start 04/30/17 at 16:00 Oxycodone/ Acetaminophen (Percocet (5/ 325)) 2 tab Q4H PRN PO PAIN LEVEL 6-10; Start 05/02/17 at 15:30 GEOVANI PATEL May 04, 2017 13:58
[2017-05-04] MEDS: OXYCODONE/ACETAMINOPHEN (5/325) TAB PO PRN ×2 (14:18→21:40)
[2017-05-04] MEDS: ONDANSETRON 4 MG INJ IV PRN ×3 (14:18→21:40)
[2017-05-04 20:36] VITALS: BP 133/65; RESP 18
--- NOTE | 2017-05-05 01:09 | PN ---
Date/Time of Note Date/Time of Note DATE: 05/05/17 TIME: 01:06 Assessment/Plan VTE Prophylaxis VTE Prophylaxis Intervention: SCD's Lines/Catheters IV Catheter Type (from Nrs): Peripheral IV Urinary Cath still in place: No Assessment/Plan Chief Complaint/Hosp Course fibroids Problems: Assessment/Plan A- doing well P- adv diet, possibly d/c a.m. Subjective 24 Hr Interval Summary Free Text/Dictation + flatus and feelws better Exam/Review of Systems Vital Signs Vitals Vital Signs Date Time Temp Pulse Resp B/P Pulse Ox O2 Delivery O2 Flow Rate FiO2 05/04/17 20:36 98.5 72 18 133/65 96 05/03/17 23:14 Room Air 05/03/17 22:26 2.0 Intake and Output 05/04/17 05/04/17 05/05/17 15:00 23:00 07:00 Intake Total 500 ml 1340 ml Output Total 3000 ml Balance 500 ml -1660 ml Exam Ab - NT Ext- nt no edema Results Result Diagram: 05/04/1720 05/04/17 0920 Results 24 hrs Laboratory Tests Test 05/04/17 09:20 White Blood Count 8.1 Red Blood Count 3.85 L Hemoglobin 10.8 L Hematocrit 32.4 L Mean Corpuscular Volume 84.2 Mean Corpuscular Hemoglobin 28.1 L Mean Corpuscular Hemoglobin Concent 33.3 Red Cell Distribution Width 14.4 Platelet Count 302 Mean Platelet Volume 8.6 Neutrophils % 71.2 Lymphocytes % 18.3 Monocytes % 8.3 Eosinophils % 1.6 Basophils % 0.4 Nucleated Red Blood Cells % 0.0 Neutrophils # 5.8 Lymphocytes # 1.5 Monocytes # 0.7 Eosinophils # 0.1 Basophils # 0.0 Nucleated Red Blood Cells # 0.0 Sodium Level 136 Potassium Level 3.6 Chloride Level 106 Carbon Dioxide Level 26 Anion Gap 8 Blood Urea Nitrogen 6 L Creatinine 0.72 Glucose Level 103 Calcium Level 8.6 Medications Medications Current Medications Escitalopram Oxalate (Lexapro) 40 mg DAILY PO Last administered on 05/04/17 09 :25; Admin Dose 40 MG; Start 04/28/17 at 22:00 Ondansetron HCl (Zofran Inj) 4 mg Q4H PRN IV NAUSEA AND/OR VOMITING Last administered on 05/04/17 21:40; Admin Dose 4 MG; Start 04/28/17 at 21:00 Medroxyprogesterone Acetate (Provera) 20 mg TID PO Last administered on 20:45; Admin Dose 20 MG; Start 04/28/17 at 21:00 Oxycodone/ Acetaminophen (Percocet (5/ 325)) 1 tab Q4H PRN PO PAIN Last administered on 05/04/17 14:18; Admin Dose 1 TAB; Start 04/28/17 at 21:00 Sumatriptan Succinate (Imitrex) 100 mg DAILY PRN PO migraine headache Last administered on 05/03/17 10:13; Admin Dose 100 MG; Start 04/28/17 at 21:00 Trazodone HCl (Desyrel) 150 mg HS PO Last administered on 05/04/17 20:45; Admin Dose 150 MG; Start 04/28/17 at 21:00 Acetaminophen (Tylenol Tab) 650 mg Q4H PRN PO PAIN AND OR ELEVATED TEMP; Start 04/28/17 at 21:00 Nicotine (Nicoderm 14 Mg/ 24hr) 1 patch DAILY TRANSDERM Last administered on 09:26; Admin Dose 1 PATCH; Start 04/29/17 at 09:00 Alprazolam 0.5 mg 0.5 mg BID PRN PO anxiety Last administered on 04/29/17 06: 20; Admin Dose 0.5 MG; Start 04/29/17 at 06:30 Sodium Chloride (NS) 1,000 ml @ 75 mls/hr [id number] IV Last administered on 05/04 13:12; Admin Dose 75 MLS/HR; Start 04/29/17 at 07:30 Morphine Sulfate (morphine) 4 mg Q3H PRN IV SEVERE PAIN LEVEL 7-10 Last administered on 05/04/17 20:38; Admin Dose 4 MG; Start 04/29/17 at 19:00 Mupirocin (Bactroban) 1 applic BID TOP Last administered on 05/04/17 20:41; Admin Dose 1 APPLIC; Start 04/30/17 at 11:00; Stop 05/06/17 at 21:01 Docusate Sodium (Colace) 100 mg BID PO Last administered on 05/04/17 20:45; Admin Dose 100 MG; Start 04/30/17 at 21:00 Bisacodyl (Dulcolax) 5 mg DAILY PRN PO CONSTIPATION Last administered on 17:50; Admin Dose 5 MG; Start 04/30/17 at 16:00 Oxycodone/ Acetaminophen (Percocet (5/ 325)) 2 tab Q4H PRN PO PAIN LEVEL 6-10 Last administered on 05/04/17 21:40; Admin Dose 2 TAB; Start 05/02/17 at 15:30 CHRIS HUITRON MD May 05, 2017 01:09
[2017-05-05] MEDS: SOD CHLORIDE 0.9% 1,000 ML IV SCH ×3 (03:08→17:17)
[2017-05-05 08:00] VITALS: BP 107/59; RESP 18
[2017-05-05] MEDS: morphine 4 MG/ML VIAL IV PRN (08:32)
[2017-05-05] MEDS: NICOTINE (14 MG/24 HR) PATCH TRANSDERM SCH (08:52)
[2017-05-05] MEDS: MEDROXYPROGESTERONE 10 MG TAB PO SCH ×3 (08:52→20:47)
[2017-05-05] MEDS: DOCUSATE SODIUM 100 MG CAP PO SCH ×2 (08:52→20:47)
[2017-05-05] MEDS: MUPIROCIN 2% 22 GM OINT TOP SCH ×2 (08:54→20:46)
[2017-05-05 09:32] LABS: ADD SCAN DIFF NO
[2017-05-05 09:34] LABS: BASOPHILS % 0.3 % (0.0-2.0); EOSINOPHILS # 0.3 10^3/ul (0.0-0.5); EOSINOPHILS % 3.5 % (0.0-7.0); HEMATOCRIT 34.4 % (37.0-47.0); LYMPHOCYTES # 1.2 10^3/ul (0.8-2.9); LYMPHOCYTES % 16.9 % (15.0-51.0); MEAN CORPUSCULAR HEMOGLOBIN 27.5 pg (29.0-33.0); MONOCYTE # 0.5 10^3/ul (0.3-0.9); MONOCYTES % 6.7 % (0.0-11.0); NEUTROPHIL # 5.2 10^3/ul (1.6-7.5); NEUTROPHILS % 72.5 % (39.0-77.0); PLATELET COUNT 296 10^3/UL (140-415); WHITE BLOOD COUNT 7.2 10^3/ul (4.8-10.8)
[2017-05-05] MEDS: ESCITALOPRAM 10 MG TAB PO SCH (10:15)
[2017-05-05] MEDS: OXYCODONE/ACETAMINOPHEN (5/325) TAB PO PRN ×2 (10:16→17:15)
[2017-05-05 10:21] LABS: CALCIUM 8.9 mg/dl (8.4-10.2); CREATININE 0.72 mg/dl (0.44-1.00); POTASSIUM 3.4 mmol/L (3.5-5.1)
[2017-05-05] MEDS ORDERED: HYDROmorphONE 1 MG/ML SYG IV STA (11:24)
[2017-05-05] MEDS: HYDROmorphONE 1 MG/ML SYG IV PRN ×3 (14:45→21:38)
--- NOTE | 2017-05-05 19:08 | PN ---
Date/Time of Note Date/Time of Note DATE: 05/05/17 TIME: 19:05 Assessment/Plan VTE Prophylaxis VTE Prophylaxis Intervention: SCD's Lines/Catheters IV Catheter Type (from [facility]): Peripheral IV Urinary Cath still in place: No Assessment/Plan Chief Complaint/Hosp Course Patient complains of pain requiring IV Dilaudid, present bowel sounds and positive flatus, denies any nausea vomiting, hemoglobin is stable. Assessment/Plan - Vaginal bleed due to uterine fibroid, status post laparoscopic hysterectomy. Dr. Pate is following in surgical consultation. - Anemia secondary to vaginal bleed, status post blood transfusion at another facility, continue to monitor hemoglobin and hematocrit. Further recommendations based on clinical course. Plan of care discussed with Dr. Hooks. Problems: Exam/Review of Systems Vital Signs Vitals Vital Signs Date Time Temp Pulse Resp B/P Pulse Ox O2 Delivery O2 Flow Rate FiO2 05/05/17 08:00 98.8 74 18 107/59 100 05/03/17 23:14 Room Air 05/03/17 22:26 2.0 Intake and Output 05/04/17 05/04/17 05/05/17 15:00 23:00 07:00 Intake Total 500 ml 1340 ml 2015 ml Output Total 3000 ml 2000 ml Balance 500 ml -1660 ml 15 ml Exam Constitutional: alert, oriented Psych: anxiety Head: normocephalic Neck: supple Respiratory: clear to auscultation Cardiovascular: nl pulses Gastrointestinal: non-tender, soft, status post laparoscopic hysterectomy Extremities: normal pulses Neurological: nl mental status Results Result Diagram: 05/05/1792405/05/1725 Results 24 hrs Laboratory Tests Test 05/05/17 09:25 White Blood Count 7.2 Red Blood Count 4.00 L Hemoglobin 11.0 L Hematocrit 34.4 L Mean Corpuscular Volume 86.0 Mean Corpuscular Hemoglobin 27.5 L Mean Corpuscular Hemoglobin Concent 32.0 Red Cell Distribution Width 15.0 H Platelet Count 296 Mean Platelet Volume 9.0 Neutrophils % 72.5 Lymphocytes % 16.9 Monocytes % 6.7 Eosinophils % 3.5 Basophils % 0.3 Nucleated Red Blood Cells % 0.0 Neutrophils # 5.2 Lymphocytes # 1.2 Monocytes # 0.5 Eosinophils # 0.3 Basophils # 0.0 Nucleated Red Blood Cells # 0.0 Sodium Level 141 Potassium Level 3.4 L Chloride Level 108 Carbon Dioxide Level 23 Anion Gap 13 Blood Urea Nitrogen 3 L Creatinine 0.72 Glucose Level 143 # Calcium Level 8.9 Medications Medications Current Medications Escitalopram Oxalate (Lexapro) 40 mg DAILY PO Last administered on 05/05/17 10 :15; Admin Dose 40 MG; Start 04/28/17 at 22:00 Ondansetron HCl (Zofran Inj) 4 mg Q4H PRN IV NAUSEA AND/OR VOMITING Last administered on 05/04/17 21:40; Admin Dose 4 MG; Start 04/28/17 at 21:00 Medroxyprogesterone Acetate (Provera) 20 mg TID PO Last administered on 14:43; Admin Dose 20 MG; Start 04/28/17 at 21:00 Oxycodone/ Acetaminophen (Percocet (5/ 325)) 1 tab Q4H PRN PO PAIN Last administered on 05/04/17 14:18; Admin Dose 1 TAB; Start 04/28/17 at 21:00 Sumatriptan Succinate (Imitrex) 100 mg DAILY PRN PO migraine headache Last administered on 05/03/17 10:13; Admin Dose 100 MG; Start 04/28/17 at 21:00 Trazodone HCl (Desyrel) 150 mg HS PO Last administered on 05/04/17 20:45; Admin Dose 150 MG; Start 04/28/17 at 21:00 Acetaminophen (Tylenol Tab) 650 mg Q4H PRN PO PAIN AND OR ELEVATED TEMP; Start 04/28/17 at 21:00 Nicotine (Nicoderm 14 Mg/ 24hr) 1 patch DAILY TRANSDERM Last administered on 08:52; Admin Dose 1 PATCH; Start 04/29/17 at 09:00 Alprazolam 0.5 mg 0.5 mg BID PRN PO anxiety Last administered on 04/29/17 06: 20; Admin Dose 0.5 MG; Start 04/29/17 at 06:30 Sodium Chloride (NS) 1,000 ml @ 75 mls/hr [id number] IV Last administered on 05/05 17:17; Admin Dose 75 MLS/HR; Start 04/29/17 at 07:30 Mupirocin (Bactroban) 1 applic BID TOP Last administered on 05/05/17 08:54; Admin Dose 1 APPLIC; Start 04/30/17 at 11:00; Stop 05/06/17 at 21:01 Docusate Sodium (Colace) 100 mg BID PO Last administered on 05/05/17 08:52; Admin Dose 100 MG; Start 04/30/17 at 21:00 Bisacodyl (Dulcolax) 5 mg DAILY PRN PO CONSTIPATION Last administered on 17:50; Admin Dose 5 MG; Start 04/30/17 at 16:00 Oxycodone/ Acetaminophen (Percocet (5/ 325)) 2 tab Q4H PRN PO PAIN LEVEL 6-10 Last administered on 05/05/17 17:15; Admin Dose 2 TAB; Start 05/02/17 at 15:30 Hydromorphone HCl (Dilaudid) 1 mg Q3H PRN IV PAIN Last administered on 18:20; Admin Dose 1 MG; Start 05/05/17 at 11:30 BERNARDO GRAJEDA May 05, 2017 19:07
[2017-05-05] MEDS ORDERED: POTASSIUM CHLORIDE 20 MEQ POWDER FOR ORAL SOLN PO ONE (19:30)
[2017-05-05 19:50] VITALS: BP 124/59; RESP 18
[2017-05-05] MEDS: traZODone 100 MG TAB PO SCH (20:47)
[2017-05-06] MEDS ORDERED: HYDROmorphONE 1 MG/ML SYG IV PRN ×2 (01:00→20:30)
[2017-05-06] MEDS: ONDANSETRON 4 MG INJ IV PRN ×4 (06:00→21:59)
[2017-05-06] MEDS: OXYCODONE/ACETAMINOPHEN (5/325) TAB PO PRN ×4 (06:00→21:59)
[2017-05-06 08:30] VITALS: BP 114/64; RESP 20
[2017-05-06 09:20] LABS: ADD SCAN DIFF NO
[2017-05-06 09:22] LABS: BASOPHILS % 0.3 % (0.0-2.0); EOSINOPHILS # 0.3 10^3/ul (0.0-0.5); EOSINOPHILS % 3.9 % (0.0-7.0); HEMATOCRIT 30.9 % (37.0-47.0); LYMPHOCYTES # 1.8 10^3/ul (0.8-2.9); LYMPHOCYTES % 24.1 % (15.0-51.0); MEAN CORPUSCULAR HEMOGLOBIN 27.9 pg (29.0-33.0); MEAN CORPUSCULAR HGB CONC 32.4 g/dl (32.0-37.0); MEAN CORPUSCULAR VOLUME 86.1 fl (82.0-101.0); MONOCYTE # 0.5 10^3/ul (0.3-0.9); MONOCYTES % 7.1 % (0.0-11.0); NEUTROPHIL # 4.9 10^3/ul (1.6-7.5); NEUTROPHILS % 64.3 % (39.0-77.0); PLATELET COUNT 277 10^3/UL (140-415); RED BLOOD COUNT 3.59 10^6/ul (4.20-5.40); RED CELL DISTRIBUTION WIDTH 14.6 % (11.5-14.5); WHITE BLOOD COUNT 7.7 10^3/ul (4.8-10.8)
[2017-05-06] MEDS: MEDROXYPROGESTERONE 10 MG TAB PO SCH ×2 (09:29→12:33)
[2017-05-06] MEDS: NICOTINE (14 MG/24 HR) PATCH TRANSDERM SCH (09:29)
[2017-05-06] MEDS: DOCUSATE SODIUM 100 MG CAP PO SCH ×2 (09:29→21:05)
[2017-05-06] MEDS: ESCITALOPRAM 10 MG TAB PO SCH (09:30)
[2017-05-06] MEDS: MUPIROCIN 2% 22 GM OINT TOP SCH ×2 (09:30→21:06)
[2017-05-06 09:40] LABS: CALCIUM 8.8 mg/dl (8.4-10.2); CREATININE 0.6 mg/dl (0.44-1.00); POTASSIUM 3.6 mmol/L (3.5-5.1)
--- NOTE | 2017-05-06 11:42 | PN ---
Date/Time of Note Date/Time of Note DATE: 05/06/17 TIME: 11:41 Assessment/Plan VTE Prophylaxis VTE Prophylaxis Intervention: other Lines/Catheters [facility] Saline Lock Urinary Cath still in place: No Assessment/Plan Chief Complaint/Hosp Course - Vaginal bleed due to uterine fibroid, status post laparoscopic hysterectomy. Dr. Pate is following in surgical consultation. - Anemia secondary to vaginal bleed, status post blood transfusion at another facility, continue to monitor hemoglobin and hematocrit. Problems: Subjective 24 Hr Interval Summary Free Text/Dictation Patient still have fair amount of pain Exam/Review of Systems Vital Signs Vitals Vital Signs Date Time Temp Pulse Resp B/P Pulse Ox O2 Delivery O2 Flow Rate FiO2 05/06/17 08:30 98.6 68 20 114/64 95 05/03/17 23:14 Room Air 05/03/17 22:26 2.0 Intake and Output 05/05/17 05/05/17 05/06/17 15:00 23:00 07:00 Intake Total 3415 ml 1640 ml Output Total 2100 ml Balance 3415 ml -460 ml Exam Constitutional: well developed Head: atraumatic, normocephalic Neck: supple Respiratory: clear to auscultation Cardiovascular: regular rate and rhythm Gastrointestinal: non-tender, soft Extremities: normal pulses Results Result Diagram: 05/06/1790505/06/17 0906 Results 24 hrs Laboratory Tests Test 05/06/17 09:06 White Blood Count 7.7 Red Blood Count 3.59 L Hemoglobin 10.0 L Hematocrit 30.9 L Mean Corpuscular Volume 86.1 Mean Corpuscular Hemoglobin 27.9 L Mean Corpuscular Hemoglobin Concent 32.4 Red Cell Distribution Width 14.6 H Platelet Count 277 Mean Platelet Volume 9.0 Neutrophils % 64.3 Lymphocytes % 24.1 Monocytes % 7.1 Eosinophils % 3.9 Basophils % 0.3 Nucleated Red Blood Cells % 0.0 Neutrophils # 4.9 Lymphocytes # 1.8 Monocytes # 0.5 Eosinophils # 0.3 Basophils # 0.0 Nucleated Red Blood Cells # 0.0 Sodium Level 141 Potassium Level 3.6 Chloride Level 111 H Carbon Dioxide Level 22 Anion Gap 12 Blood Urea Nitrogen 3 L Creatinine 0.60 Glucose Level 75 # Calcium Level 8.8 Medications Medications Current Medications Escitalopram Oxalate (Lexapro) 40 mg DAILY PO Last administered on 05/06/17 09 :30; Admin Dose 40 MG; Start 04/28/17 at 22:00 Ondansetron HCl (Zofran Inj) 4 mg Q4H PRN IV NAUSEA AND/OR VOMITING Last administered on 05/06/17 06:00; Admin Dose 4 MG; Start 04/28/17 at 21:00 Medroxyprogesterone Acetate (Provera) 20 mg TID PO Last administered on 09:29; Admin Dose 20 MG; Start 04/28/17 at 21:00 Oxycodone/ Acetaminophen (Percocet (5/ 325)) 1 tab Q4H PRN PO PAIN Last administered on 05/04/17 14:18; Admin Dose 1 TAB; Start 04/28/17 at 21:00 Sumatriptan Succinate (Imitrex) 100 mg DAILY PRN PO migraine headache Last administered on 05/03/17 10:13; Admin Dose 100 MG; Start 04/28/17 at 21:00 Trazodone HCl (Desyrel) 150 mg HS PO Last administered on 05/05/17 20:47; Admin Dose 150 MG; Start 04/28/17 at 21:00 Acetaminophen (Tylenol Tab) 650 mg Q4H PRN PO PAIN AND OR ELEVATED TEMP; Start 04/28/17 at 21:00 Nicotine (Nicoderm 14 Mg/ 24hr) 1 patch DAILY TRANSDERM Last administered on 09:29; Admin Dose 1 PATCH; Start 04/29/17 at 09:00 Alprazolam (Xanax) 0.5 mg BID PRN PO anxiety Last administered on 04/29/17 06: 20; Admin Dose 0.5 MG; Start 04/29/17 at 06:30 Mupirocin (Bactroban) 1 applic BID TOP Last administered on 05/06/17 09:30; Admin Dose 1 APPLIC; Start 04/30/17 at 11:00; Stop 05/06/17 at 21:01 Docusate Sodium (Colace) 100 mg BID PO Last administered on 05/06/17 09:29; Admin Dose 100 MG; Start 04/30/17 at 21:00 Bisacodyl (Dulcolax) 5 mg DAILY PRN PO CONSTIPATION Last administered on 17:50; Admin Dose 5 MG; Start 04/30/17 at 16:00 Oxycodone/ Acetaminophen (Percocet (5/ 325)) 2 tab Q4H PRN PO PAIN LEVEL 6-10 Last administered on 05/06/17 06:00; Admin Dose 2 TAB; Start 05/02/17 at 15:30 BEBE SAGE May 06, 2017 11:42
--- NOTE | 2017-05-06 13:53 | PN ---
Date/Time of Note Date/Time of Note DATE: 05/06/17 TIME: 13:48 Assessment/Plan VTE Prophylaxis VTE Prophylaxis Intervention: SCD's Lines/Catheters IV [facility] Type [facility]from [facility] Saline Lock Urinary Cath still in place: No Assessment/Plan Chief Complaint/Hosp Course fibroids Problems: Assessment/Plan A- improving but sensitive and gas pains vs other issues P- d/c all IV narcotics and post op d#2 simple laparoscopic procedure and repeat CBC later today. Possibly d/c later today or a.m. Subjective 24 Hr Interval Summary Free Text/Dictation Patient indicates "bad night due to pain and pain worst when nurse did bladder scan on incision"; except incision was only a 12mm laparoscope site. No N/V. voided and OOB. Samuel diet. Exam/Review of Systems Vital Signs Vitals Vital Signs Date Time Temp Pulse Resp B/P Pulse Ox O2 Delivery O2 Flow Rate FiO2 05/06/17 08:30 98.6 68 20 114/64 95 05/03/17 23:14 Room Air 05/03/17 22:26 2.0 Intake and Output 05/05/17 05/05/17 05/06/17 15:00 23:00 07:00 Intake Total 3415 ml 1640 ml Output Total 2100 ml Balance 3415 ml -460 ml Exam Resp- clear CVS- NSR Abd- soft NT Ext NT Results Result Diagram: 05/06/17 0906 05/06/17 0906 Results 24 hrs Laboratory Tests Test 05/06/17 09:06 White Blood Count 7.7 Red Blood Count 3.59 L Hemoglobin 10.0 L Hematocrit 30.9 L Mean Corpuscular Volume 86.1 Mean Corpuscular Hemoglobin 27.9 L Mean Corpuscular Hemoglobin Concent 32.4 Red Cell Distribution Width 14.6 H Platelet Count 277 Mean Platelet Volume 9.0 Neutrophils % 64.3 Lymphocytes % 24.1 Monocytes % 7.1 Eosinophils % 3.9 Basophils % 0.3 Nucleated Red Blood Cells % 0.0 Neutrophils # 4.9 Lymphocytes # 1.8 Monocytes # 0.5 Eosinophils # 0.3 Basophils # 0.0 Nucleated Red Blood Cells # 0.0 Sodium Level 141 Potassium Level 3.6 Chloride Level 111 H Carbon Dioxide Level 22 Anion Gap 12 Blood Urea Nitrogen 3 L Creatinine 0.60 Glucose Level 75 # Calcium Level 8.8 Medications Medications Current Medications Escitalopram Oxalate (Lexapro) 40 mg DAILY PO Last administered on 05/06/17 09 :30; Admin Dose 40 MG; Start 04/28/17 at 22:00 Ondansetron HCl (Zofran Inj) 4 mg Q4H PRN IV NAUSEA AND/OR VOMITING Last administered on 05/06/17 12:39; Admin Dose 4 MG; Start 04/28/17 at 21:00 Oxycodone/ Acetaminophen (Percocet (5/ 325)) 1 tab Q4H PRN PO PAIN Last administered on 05/04/17 14:18; Admin Dose 1 TAB; Start 04/28/17 at 21:00 Sumatriptan Succinate (Imitrex) 100 mg DAILY PRN PO migraine headache Last administered on 05/03/17 10:13; Admin Dose 100 MG; Start 04/28/17 at 21:00 Trazodone HCl (Desyrel) 150 mg HS PO Last administered on 05/05/17 20:47; Admin Dose 150 MG; Start 04/28/17 at 21:00 Acetaminophen (Tylenol Tab) 650 mg Q4H PRN PO PAIN AND OR ELEVATED TEMP; Start 04/28/17 at 21:00 Nicotine (Nicoderm 14 Mg/ 24hr) 1 patch DAILY TRANSDERM Last administered on 09:29; Admin Dose 1 PATCH; Start 04/29/17 at 09:00 Alprazolam (Xanax) 0.5 mg BID PRN PO anxiety Last administered on 04/29/17 06: 20; Admin Dose 0.5 MG; Start 04/29/17 at 06:30 Mupirocin (Bactroban) 1 applic BID TOP Last administered on 05/06/17 09:30; Admin Dose 1 APPLIC; Start 04/30/17 at 11:00; Stop 05/06/17 at 21:01 Docusate Sodium (Colace) 100 mg BID PO Last administered on 05/06/17 09:29; Admin Dose 100 MG; Start 04/30/17 at 21:00 Bisacodyl (Dulcolax) 5 mg DAILY PRN PO CONSTIPATION Last administered on 17:50; Admin Dose 5 MG; Start 04/30/17 at 16:00 Oxycodone/ Acetaminophen (Percocet (5/ 325)) 2 tab Q4H PRN PO PAIN LEVEL 6-10 Last administered on 05/06/17t 12:33; Admin Dose 2 TAB; Start 05/02/17 at 15:30 CHRIS HUITRON MD May 06, 2017 13:53
[2017-05-06 18:29] LABS: ADD SCAN DIFF NO
[2017-05-06 18:33] LABS: BASOPHILS % 0.3 % (0.0-2.0); EOSINOPHILS # 0.4 10^3/ul (0.0-0.5); EOSINOPHILS % 4.8 % (0.0-7.0); HEMATOCRIT 34.2 % (37.0-47.0); HEMOGLOBIN 10.8 g/dl (12.0-16.0); LYMPHOCYTES # 2.4 10^3/ul (0.8-2.9); LYMPHOCYTES % 32.9 % (15.0-51.0); MEAN CORPUSCULAR HEMOGLOBIN 26.8 pg (29.0-33.0); MEAN CORPUSCULAR HGB CONC 31.6 g/dl (32.0-37.0); MEAN CORPUSCULAR VOLUME 84.9 fl (82.0-101.0); MEAN PLATELET VOLUME 9.1 fl (7.4-10.4); MONOCYTE # 0.8 10^3/ul (0.3-0.9); MONOCYTES % 10.5 % (0.0-11.0); NEUTROPHIL # 3.7 10^3/ul (1.6-7.5); NEUTROPHILS % 51.2 % (39.0-77.0); PLATELET COUNT 332 10^3/UL (140-415); RED BLOOD COUNT 4.03 10^6/ul (4.20-5.40); RED CELL DISTRIBUTION WIDTH 14.5 % (11.5-14.5); WHITE BLOOD COUNT 7.3 10^3/ul (4.8-10.8)
[2017-05-06 19:46] VITALS: BP 118/64; RESP 18
[2017-05-06] MEDS: traZODone 100 MG TAB PO SCH (21:05)
--- NOTE | 2017-05-06 23:06 | OPR ---
Date/Time of Note Date/Time of Note DATE: 05/06/17 TIME: 23:05 Operative Report Free Text/Dictation 4 OPERATIVE REPORT [facility] Name: Jacquelyn Alberts Medical Date: 05/03/17 Preoperative Diagnosis: 1- Uterine enlargement with menorrhagia 2- Pelvic pain 3- s/p endometrial ablation Postoperative Diagnosis: 1- Fibroids 2- Ureteral stricture 3- Hypervascularity Procedures: 1- Total laparoscopic hysterectomy with bilateral salpingectomy 2- Bilateral ureteral dissection with repositioning 3-Bilateral retroperitoneal uterine artery ligation Surgeon: Dr. Huitron Funds Development Director: Dr. Darnell Duncan Anesthesia: General Indication for Procedure: The patient is a 46- -year old female with a large uterus consistent with fibroids per history and examination and pelciv/abdominal pain with anemia s/p ablation for whom, after considering all options with risks and benefits a laparoscopy was planned with a total laparoscopic hysterectomy with possible staging or laparotomy if needed. Findings and Summary Name: Jacquelyn Alberts Medical The patient was laparoscoped and noted to have findings consistent of 12-14 week fibroids/adenomyosis and some adhesions with both adnexia adherent to the sidewalls and therefore requiring a ureteral dissection and repositioning bilaterally while gaining access to the uterine arteries. While completing the ureteral dissections and gaining access to the uterine arteries anatomic issues and hypervascularity necessitated that the uterine arteries be dissected and clipped laterally, adjacent to the hypogastric arteries bilaterally. The total laparoscopic hysterectomy was then completed with bilateral salpingectomy uneventfully. Procedure: After being prepped and draped in the usual manner an EEA sizer and pneumo- occluder was inserted vaginally was placed against the cervix. A 5-millimeter trocar was then placed cephlad to the umbilicus without incident. Subsequently , we insufflated to 15 mm Hg and placed two 5-millimeter trocars laterally and enterolysis was carried out with sharp dissection although the adhesions were very dense. In the process the small bowel was mobilized and subsequently a 12- millimeter trocar suprapubically. At this time any pelvic adhesions were lysed with sharp dissection and an Omni if not adjacent to serosa. Subsequently we explored and noted pelvic findings consistent with a 12-14 week fibroids and an expanded lower uterine segment with both adnexia densely adherent to the sidewalls obscuring the retroperitoneal anatomy. Initially the right round ligament was cauterized and transected with the Thunderbeat and the retroperitoneal spaced opened parallel to the IP ligament an laterally with the same devise and Omni. The ureter was identified and because of pelvic scar tissue and the large fibroids and adnexia adherent to the sidewall required a specific dissection and repositioning. The ureter was bluntly dissected away from the broad ligament with an Omni and endo-dissector, and carefully repositioned lateral to the broad ligament and pathology and expanded lower uterine segment with fibroids. The process was continued distally due to some element of additional stricture. Due to vascularity and Name: Jacquelyn Alberts [facility] ongoing oozing as well as the large uterus the uterine artery was identified and clipped lateral to the ureter, immediately distal to the branching of the hypogastric and at the bifurcation of the hypogastric; salvaging both observed superior and inferior vesicle while controlling the entire uterine with associated collateral branches. Hence, space was developed in the broad ligament and the triple pedicle was transected with a Thunderbeat, after which the fallopian tube was removed with the Thunderbeat and extracted. At this time the sigmoid was dissected from the sidewall with sharp dissection and the Omni if not adjacent to serosa. The left round ligament was transected with the Thunderbeat and the retroperitoneal spaced opened parallel to the IP ligament and laterally with the same devise and Omni. The ureter was identified and because of similar anatomic issues to the contralateral side required a specific dissection and repositioning. The ureter was bluntly dissected away from the broad ligament bilaterally with an Omni and endo- dissector, and carefully repositioned lateral to the broad ligament and scar tissue with inflammation and with adjacent adnexia. Similarly, due to vascularity and ongoing oozing as well as the adjacent adherent adnexia and fibroid uterus the uterine artery was identified and clipped lateral to the ureter, immediately distal to the branching of the hypogastric and at the bifurcation of the hypogastric; salvaging both observed superior and inferior vesicle while controlling the entire uterine with associated collateral branches. Subsequently, space was developed in the broad ligament and the IP ligament was transected with a Thunderbeat. We then used a ratcheted endo- grasper placed through the 12-mm suprapubic trocar to manipulate the uterus allowing development or the bladder flap uneventfully with the Omni and blunt dissection. The right uterine artery was transected with a Thunderbeat perpendicular to the distal lower uterine segment and the Cardinal ligament and utero-sacral ligament were both transected with an Omni and Thunderbeat parallel to the lower uterine segment and cervix. An identical series of steps were taken on the contralateral side. Additional efforts were required to safely develop the cul-de- Name: Jacquelyn Alberts Medical sac with sharp dissection laterally and the integrity of the sigmoid was confirmed with the EEA sizer. The anterior and posterior colpotomies were accomplished with a Thunderbeat instrument anteriorly and posteriorly, and continued around the sides as the specimen was removed through the vagina uneventfully using an Omni. The vagina was closed with Interrupted 0- Vicryl suture and continuous 2-0 Stratafix. After irrigating and assuring hemostasis the 12 millimeter trocar was removed and the fascia was closed with 0-vicryl using an endo-close devise. The gas was removed and the skin of all sites then closed with 5-0 Plain Gut suture. The EBL was 100cc and the patient tolerated the procedure well and left the OR in good condition. Oh Huitron M.D. OH HUITRON MD May 06, 2017 23:05
[2017-05-07 07:55] VITALS: BP 131/66; RESP 20
[2017-05-07] MEDS: ESCITALOPRAM 10 MG TAB PO SCH (09:29)
[2017-05-07] MEDS: DOCUSATE SODIUM 100 MG CAP PO SCH (09:29)
[2017-05-07] MEDS: NICOTINE (14 MG/24 HR) PATCH TRANSDERM SCH (09:29)
[2017-05-07] MEDS: BISACODYL (EC) 5 MG TAB PO PRN (09:35)
--- NOTE | 2017-05-07 11:38 | DS ---
Date/Time of Note Date/Time of Note DATE: 05/07/17 TIME: 11:36 Discharge Summary Admission/Discharge Info Admit Date/Time Apr 28, 2017 at 16:31 Discharge Date/Time 05/07/17 Consults Gynecology Procedures laparoscopic hysterectomy Hx of Present Illness Patient comes in with abdominal pain and vaginal bleeding from uterine fibroid Hospital Course Patient underwent laparoscopic hysterectomy. Patient tolerated the procedure though had some postoperative pain. Eventually, pain became under control and she will go home on oral narcotic pain mediction. Home Meds Reported Medications Medroxyprogesterone Acetate* (Provera*) 10 Mg Tablet, 20 MG PO TID, TAB 04/28/17 Ondansetron Hcl* (Zofran*) 4 Mg Tablet, 4 MG PO NEEDED Y for NAUSEA AND OR VOMITING, TAB 04/28/17 Oxycodone HCl/Acetaminophen (Percocet 5-325 mg Tablet) 1 Each Tablet, 1 EACH PO NEEDED, TAB 04/28/17 Sumatriptan Succinate* (Imitrex*) 100 Mg Tablet, 100 MG PO DAILY Y for MIGRAINE HEADACHE, TAB May repeat after 2 hours if needed; MAX 200 mg/24 hours 04/28/17 Escitalopram Oxalate* (Lexapro*) 20 Mg Tablet, 40 MG PO DAILY, #30 TAB 04/28/17 Alprazolam* (Xanax*) 0.5 Mg Tab, 0.5 MG PO NEEDED Y for ANXIETY, TAB 04/28/17 Trazodone Hcl* (Trazodone Hcl*) 150 Mg Tablet, 150 MG PO QHS, #30 TAB 04/28/17 Primary Care Provider Ramsey Huggins MD Pending Labs Laboratory Tests Test 05/06/17 18:15 White Blood Count 7.310^3/ul (4.8-10.8) Red Blood Count 4.0310^6/ul (4.20-5.40) Hemoglobin 10.8g/dl (12.0-16.0) Hematocrit 34.2% (37.0-47.0) Mean Corpuscular Volume 84.9fl (82.0-101.0) Mean Corpuscular Hemoglobin 26.8pg (29.0-33.0) Mean Corpuscular Hemoglobin Concent 31.6g/dl (32.0-37.0) Red Cell Distribution Width 14.5% (11.5-14.5) Platelet Count 44039^3/UL (140-415) Mean Platelet Volume 9.1fl (7.4-10.4) Neutrophils % 51.2% (39.0-77.0) Lymphocytes % 32.9% (15.0-51.0) Monocytes % 10.5% (0.0-11.0) Eosinophils % 4.8% (0.0-7.0) Basophils % 0.3% (0.0-2.0) Nucleated Red Blood Cells % 0.0/100WBC (0.0-0.0) Neutrophils # 3.710^3/ul (1.6-7.5) Lymphocytes # 2.410^3/ul (0.8-2.9) Monocytes # 0.810^3/ul (0.3-0.9) Eosinophils # 0.410^3/ul (0.0-0.5) Basophils # 0.010^3/ul (0.0-0.1) Nucleated Red Blood Cells # 0.010^3/ul (0.0-0.0) BEBE SAGE May 07, 2017 11:38
[2017-05-07] MEDS: SUMATRIPTAN 50 MG TAB PO PRN (12:26)
== END 2017-05-07 14:40 | disposition home or self-care (01) | DRG 743 ==
LOC: FTE 15:15 → MS2 16:31
PROVIDERS: ADMIT Internal Medicine; ATTEND Internal Medicine
PROC: 0UTC4ZZ Resection of Cervix, Percutaneous Endoscopic Approach (ICD-10-PCS; 2017-05-03)
PROC: 0UT74ZZ Resection of Bilateral Fallopian Tubes, Percutaneous Endoscopic Approach (ICD-10-PCS; 2017-05-03)
PROC: 0UT94ZZ Resection of Uterus, Percutaneous Endoscopic Approach (ICD-10-PCS; principal; 2017-05-03 15:00)
DX: D25.9 Leiomyoma of uterus, unspecified (principal); D50.0 Iron deficiency anemia secondary to blood loss (chronic); G89.18 Other acute postprocedural pain; N92.0 Excessive and frequent menstruation with regular cycle
CPT/HCPCS: 71010; 76830; 76856; 80048; 81001; 84484; 84702; 85014; 85018; 85025; 85049; 85610; 85670; 85730; 86850; 86900; 86901; 86920; 87081; 87086; 88307; 93005; 96374; 96375; J0690; J1170; J1644; J2175; J2250; J2270; J2274; J2405; J2710; J2765; J2795; J7030

== ENCOUNTER 2017-06-27 11:38 | Emergency (ER) | payer BC, OTHER ==
[~2017-06-27] VITALS: Ht 162.6 cm; Wt 70.0 kg
[~2017-06-27 11:38] MED LIST: ALPR0.5T PO; ESCI20TA PO; MEDR10TA2 PO; ONDA4TAB8 PO; OXYC-279 PO; SUMA100T9 PO; TRAZ150T65 PO
[2017-06-27 11:44] VITALS: Ht 162.6 cm; Wt 70.0 kg
[2017-06-27] MEDS ORDERED: ALPR0.5T PO (12:12)
--- NOTE | 2017-06-27 12:44 | ERD ---
ER Documentation Chief Complaint Date/Time DATE: 06/27/17 TIME: 12:31 Chief Complaint PANIC ATTACK ON AND OFF X 1 WK. ALMOST OUT OF XANAX HPI 47-year-old female with a history of generalized anxiety disorder presents emergency department for complaints of increased frequency of panic attacks this week. She describes her panic attacks as feeling anxious, nervous, with intermittent feelings of shortness of breath. Patient states she underwent a complete hysterectomy 2 months ago, and has been off work. She returned to work this past week and also notes recent personal stress which has added to her anxiety level. Patient states she is managed by her primary care physician and intermittently treated with Xanax. She states she called her primary care physician but there were no openings for the next 2 weeks and the patient is out of medication. She denies chest pain, or shortness of breath at the time of arrival. Patient denies any history of cardiac disease, or sudden in her immediate family from cardiac disease. She denies any prolonged immobilization, or calf swelling. She states her symptoms are similar to prior episodes of panic attacks. Patient states she has a follow-up appointment with her [employer] surgeon today. ROS All systems reviewed and are negative except as per history of present illness. Medications Home Meds Active Scripts Alprazolam* (Xanax*) 0.5 Mg Tab, 0.5 MG PO Q8H Y for ANXIETY, #30 TAB Prov:KELI RAGSDALE PA-C 06/27/17 Reported Medications Medroxyprogesterone Acetate* (Provera*) 10 Mg Tablet, 20 MG PO TID, TAB 04/28/17 Ondansetron Hcl* (Zofran*) 4 Mg Tablet, 4 MG PO NEEDED Y for NAUSEA AND OR VOMITING, TAB 04/28/17 Oxycodone HCl/Acetaminophen (Percocet 5-325 mg Tablet) 1 Each Tablet, 1 EACH PO NEEDED, TAB 04/28/17 Sumatriptan Succinate* (Imitrex*) 100 Mg Tablet, 100 MG PO DAILY Y for MIGRAINE HEADACHE, TAB May repeat after 2 hours if needed; MAX 200 mg/24 hours 04/28/17 Escitalopram Oxalate* (Lexapro*) 20 Mg Tablet, 40 MG PO DAILY, #30 TAB 04/28/17 Alprazolam* (Xanax*) 0.5 Mg Tab, 0.5 MG PO NEEDED Y for ANXIETY, TAB 04/28/17 Trazodone Hcl* (Trazodone Hcl*) 150 Mg Tablet, 150 MG PO QHS, #30 TAB 04/28/17 Allergies Allergies: Coded Allergies: ibuprofen (Verified Allergy, Severe, hives, 04/28/17) PMhx/Soc History of Surgery: Yes (gastric slip/bypass, back surgery(fusion),endometrial ablation) Anesthesia Reaction: No Hx Neurological Disorder: Yes (migraine headache) Hx Respiratory Disorders: No Hx Cardiac Disorders: No Hx Psychiatric Problems: Yes (anxiety,depression) Hx Miscellaneous Medical Probl: Yes (fibroids,menorrhagia) Hx Alcohol Use: No Hx Substance Use: No Hx Tobacco Use: Yes Smoking Status: Never smoker Physical Exam Vitals Vital Signs Date Time Temp Pulse Resp B/P Pulse Ox O2 Delivery O2 Flow Rate FiO2 06/27/17 11:44 97.2 103 18 128/75 100 Physical Exam Const: Well-developed, well-nourished, in no acute distress Head: Atraumatic Eyes: Normal Conjunctiva ENT: Normal External Ears, Nose and Mouth. Neck: Full range of motion..~ No meningismus. Resp: Clear to auscultation bilaterally Cardio: Regular rate and rhythm, no murmurs Abd: Soft, non tender, non distended. Normal bowel sounds Skin: No petechiae or rashes Back: No midline or flank tenderness Ext: No cyanosis, or edema Neur: Awake and alert Psych: Normal Mood and Affect Procedures/MDM This is a 47-year-old female with a history of generalized anxiety disorder who presents the emergency department for reports of increased frequency of panic attacks over the past week as well as a medication refill of Xanax. Upon arrival, patient well-appearing and in no acute distress. Vital signs reviewed. Patient afebrile, slightly tachycardic at 103 bpm, normotensive and non-hypoxic. Patient was moving air well and denies shortness of breath or chest pain upon arrival. Patient without history of cardiac disease or immediate family members who have of sudden of cardiac disease. She denies any recent travel or prolonged immobilization however she does note a hysterectomy 2 months ago. She denies any calf swelling or redness. Her current international cardiac score is 0. At this time I have low suspicion for acute coronary syndrome, DVT or pulmonary embolus however I instructed her to relay her shortness of breath symptoms to her [employer] specialist who is she is seen today for follow-up from her surgery. I discussed the risks and benefits associated with CT angiogram to rule out pulmonary embolus however joint decision was forego the imaging studies as patient has experienced multiple prior episodes with similar symptoms associated to her generalized anxiety disorder. Strict return precautions were discussed. Patient expressed understanding of and agreement with plan peer Patient reports multiple prior panic attacks with similar symptoms. She states she controls her symptoms intermittently with 0.5 mg of Xanax and is out of her prescription. She states she is a follow-up with her primary care physician in 2 weeks but is unable to sleep or attend work without her medication. EKG: Interpreted by Dr Hu Rate/Rhythm: Normal Sinus Rhythm QRS, ST, T-waves: No changes consistent w/ acute ischemia Impression: No evidence of ischemia or arrhythmia History and physical exam consistent with likely panic attack. She will receive a refill of her Xanax and instructed to keep her appointment with her primary care physician in 2 weeks. Based on patient's history of present illness and physical examination the decision was made to discharge. The patient was re-evaluated after ED treatment and stabilizing measures, and symptoms have improved. There is no evidence of life threatening injuries or illnesses at this time. On re-examination, patient resting in no distress, stable vital signs, reports feeling better and safe for discharge with outpatient follow up with PMD in 1-2 days. Patient given return precautions. Departure Diagnosis: Primary Impression: Shortness of breath Additional Impressions: Panic attack Anxiety Condition: Good Patient Instructions: Stress Relief: Activities, Stress Relief: Relaxation, Stress Relief: A Positive Lifestyle Additional Instructions: Call your primary care doctor TOMORROW for an appointment during the next 1-2 days.See the doctor sooner or return here if your condition worsens before your appointment time. KELI RAGSDALE PA-C Jun 27, 2017 12:44
[2017-06-29] MEDS ORDERED: ONDA4TAB14 PO (08:05)
[2017-06-29] MEDS ORDERED: ACET325T33 PO (08:05)
== END 2017-06-27 12:20 | disposition home or self-care (01) ==
LOC: FTE 11:38
DX: R06.02 Shortness of breath (principal); F41.9 Anxiety disorder, unspecified; Z87.891 Personal history of nicotine dependence
CPT/HCPCS: 93005

== ENCOUNTER 2017-06-29 07:05 | Emergency (ER) | END 2017-06-29 09:00 | disposition home or self-care (01) | DX: R11.2 Nausea with vomiting, unspecified (principal); R19.7 Diarrhea, unspecified; G89.29 Other chronic pain; F17.210 Nicotine dependence, cigarettes, uncomplicated | CPT/HCPCS: 96374; 96375; 96376; 99284; J2270; J2405; J7030 ==

== ENCOUNTER 2017-07-22 22:42 | Emergency (ER) | payer BC, OTHER ==
[~2017-07-22] VITALS: Wt 67.5 kg
[~2017-07-22 22:42] MED LIST changes: +ACET325T33 PO; +ONDA4TAB14 PO
[2017-07-22] MEDS ORDERED: ONDANSETRON 4 MG INJ IV STA (23:41)
[2017-07-22] MEDS ORDERED: HYDROmorphONE 1 MG/ML SYG IV STA (23:41)
[2017-07-23] MEDS ORDERED: DIPHENHYDRAMINE 50 MG INJ IV ONE
[2017-07-23 00:17] LABS: URINE BLOOD (Dip) POC Trace-intact (NEGATIVE)
[2017-07-23] MEDS ORDERED: ONDANSETRON 4 MG INJ IV STA (01:29)
[2017-07-23] MEDS ORDERED: DIAZEPAM 5 MG/ML SYG IV ONE (01:30)
[2017-07-23] MEDS ORDERED: SOD CHLORIDE 0.9% 1,000 ML IV ONE ×2 (01:30)
--- NOTE | 2017-07-23 03:26 | ERD ---
ER Documentation Chief Complaint Date/Time DATE: 07/23/17 TIME: 03:17 Chief Complaint Feels SOB and nauseated, light headed with Body malaise x5 days HPI This 47-year-old female comes in with photosensitivity, headache, nausea, vomiting, body aches, history of fibromyalgia. Patient reports that she is having exacerbation, that her primary physician has taken her off of Neurontin and changed her to Naprosyn which she has not started yet. ROS All systems reviewed and are negative except as per history of present illness. Medications Home Meds Active Scripts Ondansetron (Ondansetron Odt) 4 Mg Tab.rapdis, 4 MG PO Q6H Y for NAUSEA AND/OR VOMITING, #20 TAB Prov:VERONICA SIBLEY PA-C 06/29/17 Acetaminophen* (Tylenol*) 325 Mg Tablet, 2 TAB PO Q6 Y for PAIN AND OR ELEVATED TEMP, #20 TAB Prov:VERONICA SIBLEY PA-C 06/29/17 Alprazolam* (Xanax*) 0.5 Mg Tab, 0.5 MG PO Q8H Y for ANXIETY, #30 TAB Prov:KELI RAGSDALE PA-C 06/27/17 Reported Medications Medroxyprogesterone Acetate* (Provera*) 10 Mg Tablet, 20 MG PO TID, TAB 04/28/17 Ondansetron Hcl* (Zofran*) 4 Mg Tablet, 4 MG PO NEEDED Y for NAUSEA AND OR VOMITING, TAB 04/28/17 Oxycodone HCl/Acetaminophen (Percocet 5-325 mg Tablet) 1 Each Tablet, 1 EACH PO NEEDED, TAB 04/28/17 Sumatriptan Succinate* (Imitrex*) 100 Mg Tablet, 100 MG PO DAILY Y for MIGRAINE HEADACHE, TAB May repeat after 2 hours if needed; MAX 200 mg/24 hours 04/28/17 Escitalopram Oxalate* (Lexapro*) 20 Mg Tablet, 40 MG PO DAILY, #30 TAB 04/28/17 Alprazolam* (Xanax*) 0.5 Mg Tab, 0.5 MG PO NEEDED Y for ANXIETY, TAB 04/28/17 Trazodone Hcl* (Trazodone Hcl*) 150 Mg Tablet, 150 MG PO QHS, #30 TAB 04/28/17 Allergies Allergies: Coded Allergies: ibuprofen (Verified Allergy, Severe, hives, 04/28/17) PMhx/Soc History of Surgery: Yes (gastric slip/bypass, back surgery(fusion),endometrial ablation, hysterectom) Anesthesia Reaction: No Hx Neurological Disorder: Yes (migraine headache) Hx Respiratory Disorders: No Hx Cardiac Disorders: No Hx Psychiatric Problems: Yes (anxiety,depression) Hx Miscellaneous Medical Probl: Yes (fibroids,menorrhagia, fibromyalgia) Hx Alcohol Use: Yes (once/ year) Hx Substance Use: No Hx Tobacco Use: Yes (8 cigs/ day) Smoking Status: Current every day smoker Physical Exam Vitals Vital Signs Date Time Temp Pulse Resp B/P Pulse Ox O2 Delivery O2 Flow Rate FiO2 07/22/17 22:52 97.4 77 20 135/73 98 Vitals stable, triage notes reviewed Physical Exam Const: Well-nourished well-hydrated well-appearing no acute distress Head: Atraumatic Eyes: Normal Conjunctiva, PERRLA, EOMI ENT: Neck: Resp: Cardio: Abd: Soft, non tender, non distended. Normal bowel sounds Skin: No petechiae or rashes Back: No midline or flank tenderness Ext: Neuro: Alert and oriented Face: EOMI, face and pharynx with normal sensation and function Motor: Normal strength throughout Sensation: Normal sensation throughout Speech: Normal Cerebel: Normal coordination Normal gait DTR: 2+ and symmetric upper/lower extremities Psych: Normal Mood and Affect Results 24 hrs Laboratory Tests Test 07/23/17 00:23 Bedside Urine pH (LAB) 6.0 Bedside Urine Protein (LAB) Negative Bedside Urine Glucose (UA) Negative Bedside Urine Ketones (LAB) Negative Bedside Urine Blood Trace-intact Bedside Urine Nitrite (LAB) Negative Bedside Urine Leukocyte Esterase (L Negative Current Medications Medications (Trade) Dose Ordered Sig/Omar Route PRN Reason Start Time Stop Time Status Last Admin Dose Admin Ondansetron HCl (Zofran Inj) 4 mg ONCE STAT IV 07/22/17 23:41 07/22/17 23:45 DC 07/22/17 23:59 Diphenhydramine HCl 25 mg 25 mg ONCE ONCE IV 07/23/17 00:00 07/23/17 00:01 DC 07/22/17 23:59 Sodium Chloride (NS) 1,000 ml @ 1,000 mls/hr Q1H ONCE IV 07/23/17 00:00 07/23/17 00:59 DC 07/22/17 23:59 Hydromorphone HCl (Dilaudid) 0.5 mg ONCE STAT IV 07/22/17 23:41 07/22/17 23:45 DC 07/23/17 00:00 Diazepam (Valium) 5 mg ONCE ONCE IV 07/23/17 01:30 07/23/17 01:32 DC 07/23/17 01:40 Ondansetron HCl 4 mg 4 mg ONCE STAT IV 07/23/17 01:29 07/23/17 01:32 DC 07/23/17 01:40 Sodium Chloride (NS) 1,000 ml @ 1,000 mls/hr Q1H ONCE IV 07/23/17 01:30 07/23/17 02:29 DC 07/23/17 01:40 Procedures/MDM This 47-year-old female presents to emergency department with vomiting and chronic pain syndrome. Patient has fibromyalgia, migraines, is followed by her primary care physician. Reports she is taken off of Neurontin, started on Naprosyn, patient reports a Motrin allergy states she has not taken Naprosyn yet , teaching provided this was the same class of medication and that she should talk to her doctor before taking medication. Patient's emergency room course includes 1 L normal saline, 0.5 mg Dilaudid, and 4 mg of Zofran. Patient reassessed after 60 minutes reports that she still feels nauseated, and that she still has total body pain and headache. Patient was given a second liter of normal saline, 5 mg of IV Valium, and for milligrams of Zofran. Patient reassessed after 60 minutes with improvement of symptoms. Patient reports that she is feeling much better and requesting to go home. Patient is stable with no new complaints during ER course, clinically there is no current evidence to suggest TIA, intracranial bleed or any other emergent condition appearing to require further evaluation or hospitalization. I feel the patient is stable for discharge at this time. I have discussed results, examination findings, the treatment plan with the patient and family present prior to discharge. Indications for emergent reevaluation, side effects of medication were also discussed. All questions were answered. Patient verbalizes understanding and agrees with plan of care. Departure Diagnosis: Primary Impression: Migraine Migraine type: unspecified Status migrainosus presence: without status migrainosus Intractability: not intractable Qualified Code: G43.909 - Migraine without status migrainosus, not intractable, unspecified migraine type Additional Impression: Fibromyalgia syndrome Condition: Good Patient Instructions: Managing Chronic Pain: Activity, Managing Chronic Pain: Medications, Managing Chronic Pain: Therapies for Mind and Body Additional Instructions: Thank you for for coming to [facility] for your care today. Please ask your nurse or provider if you have questions about your care today and do not leave until all your questions have been answered. Please use any medications given as directed and follow-up with your doctor (or the doctor you were referred to) in the next 2-3 days. If you do not have a primary care doctor you may follow up at the [facility] (listed below). You may also use motrin and tylenol as needed for fever and/or pain unless instructed otherwise by your provider or nurse. Indications for more urgent follow-up have been discussed, but you may return to the Emergency Department at ANY time for any worrisome or worsening symptoms. If you have abdominal pain, please know that no test or exam you received is perfect and you should follow up within 8 hours for continued pain. If you had any imaging studies today, such as an X-Ray or CT Scan, these studies will be reviewed later by a radiologist. You will be called if there are important findings that were not identified today, so make sure the contact information you provided at registration is correct. If you received any narcotic pain control medicine today, such as Vicodin, Morphine or Dilaudid, your coordination and judgment may be affected for a number of hours. Please do not drive or operate heavy machinery, and you may want someone to assist you at home. If you were given a prescription for narcotic medication, be aware that it is very addictive- use sparingly and only if necessary. SOLITARIO ORTEZ Jul 23, 2017 03:26
[2017-07-23] MEDS ORDERED: HYDR-3011 PO (03:30)
[2017-07-23 03:51] VITALS: BP 121/76; PULSE 62; RESP 16
== END 2017-07-23 03:58 | disposition home or self-care (01) ==
LOC: FTE 22:42
DX: G43.909 Migraine, unspecified, not intractable, without status migrainosus (principal); M79.7 Fibromyalgia; F17.210 Nicotine dependence, cigarettes, uncomplicated; R11.2 Nausea with vomiting, unspecified
CPT/HCPCS: 81003; 96374; 96375; 96376; 99284; J1170; J1200; J2405; J3360; J7030

== ENCOUNTER 2017-07-25 17:34 | Emergency (ER) | payer BC, OTHER ==
[~2017-07-25] VITALS: Ht 162.6 cm; Wt 68.5 kg
[~2017-07-25 17:34] MED LIST changes: +HYDR-3011 PO
[2017-07-25 17:58] VITALS: Ht 162.6 cm; Wt 68.5 kg
[2017-07-25] MEDS ORDERED: MECLIZINE 12.5 MG TAB PO ONE (21:00)
[2017-07-25] MEDS ORDERED: SOD CHLORIDE 0.9% 1,000 ML IV ONE (21:00)
[2017-07-25] MEDS ORDERED: METOCLOPRAMIDE 10 MG INJ IV ONE (21:00)
--- NOTE | 2017-07-25 21:01 | ERD ---
ER Documentation Chief Complaint Date/Time DATE: 07/25/17 TIME: 20:59 Chief Complaint n/v, dizziness x 7 days; body pains HPI This 47-year-old female presents to emergency department with nausea, vomiting, and dizziness for 7 days. Patient was seen here in emergency department by myself 3 days ago for the same symptoms. Patient reports history of fibromyalgia and that current symptoms are her normal fibromyalgia exacerbation symptoms. Patient reports normally symptoms do not last this long. Patient reports that she is currently not on any medication for fibromyalgia. She has never been prescribed amitriptyline, patient reports failed treatment with Neurontin, Lyrica, and another medication she cannot remember the name of. 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 Denies any injury. Reports the dizziness is described as" the room is spinning". Patient has been prescribed Zofran at home reports it has not been working. She was given hydroxyzine 3 days ago, patient reports she has been too sick to go to the store has continued to try the Zofran with little relief of symptoms. Patient was seen by her primary care physician and sent over to emergency department today for full evaluation. ROS All systems reviewed and are negative except as per history of present illness. Medications Home Meds Active Scripts Hydroxyzine Hcl* (Hydroxyzine Hcl*) 25 Mg Tablet, 25 MG PO Q8H Y for NAUSEA AND/ OR VOMITING, #10 TAB Prov:PÉREZSOLITARIO 07/23/17 Ondansetron (Ondansetron Odt) 4 Mg Tab.rapdis, 4 MG PO Q6H Y for NAUSEA AND/OR VOMITING, #20 TAB Prov:VERONICA SIBLEY PA-C 06/29/17 Acetaminophen* (Tylenol*) 325 Mg Tablet, 2 TAB PO Q6 Y for PAIN AND OR ELEVATED TEMP, #20 TAB Prov:VERONICA SIBLEY PA-C 06/29/17 Alprazolam* (Xanax*) 0.5 Mg Tab, 0.5 MG PO Q8H Y for ANXIETY, #30 TAB Prov:KELI RAGSDALE PA-C 06/27/17 Reported Medications Medroxyprogesterone Acetate* (Provera*) 10 Mg Tablet, 20 MG PO TID, TAB 04/28/17 Ondansetron Hcl* (Zofran*) 4 Mg Tablet, 4 MG PO NEEDED Y for NAUSEA AND OR VOMITING, TAB 04/28/17 Oxycodone HCl/Acetaminophen (Percocet 5-325 mg Tablet) 1 Each Tablet, 1 EACH PO NEEDED, TAB 04/28/17 Sumatriptan Succinate* (Imitrex*) 100 Mg Tablet, 100 MG PO DAILY Y for MIGRAINE HEADACHE, TAB May repeat after 2 hours if needed; MAX 200 mg/24 hours 04/28/17 Escitalopram Oxalate* (Lexapro*) 20 Mg Tablet, 40 MG PO DAILY, #30 TAB 04/28/17 Alprazolam* (Xanax*) 0.5 Mg Tab, 0.5 MG PO NEEDED Y for ANXIETY, TAB 04/28/17 Trazodone Hcl* (Trazodone Hcl*) 150 Mg Tablet, 150 MG PO QHS, #30 TAB 04/28/17 Allergies Allergies: Coded Allergies: ibuprofen (Verified Allergy, Severe, hives, 04/28/17) PMhx/Soc History of Surgery: Yes (gastric slip/bypass, back surgery(fusion),endometrial ablation, hysterectom) Anesthesia Reaction: No Hx Neurological Disorder: Yes (migraine headache) Hx Respiratory Disorders: No Hx Cardiac Disorders: No Hx Psychiatric Problems: Yes (anxiety,depression) Hx Miscellaneous Medical Probl: Yes (fibroids,menorrhagia, fibromyalgia) Hx Alcohol Use: Yes (once/ year) Hx Substance Use: No Hx Tobacco Use: Yes (8 cigs/ day) Physical Exam Vitals Vital Signs Date Time Temp Pulse Resp B/P Pulse Ox O2 Delivery O2 Flow Rate FiO2 07/25/17 17:58 98.2 66 18 120/69 97 Vitals stable, triage notes reviewed Physical Exam Const: Well-nourished, well-hydrated, well-appearing, obviously not feeling well in no acute distress Head: Atraumatic Eyes: Normal Conjunctiva Patient has contacts and pupils are not appropriately assessed. Positive EOMI ENT: Normal External Ears, Nose and Mouth. Neck: Full range of motion..~ No meningismus. Resp: Clear to auscultation bilaterally Mucous membranes moist no rales wheezes or rhonchi, no respiratory distress Cardio: Regular rate and rhythm, no murmurs Abd: Soft, non tender, non distended. Normal bowel sounds Skin: Back: Ext: Neuro: Alert and oriented Face: EOMI, face and pharynx with normal sensation and function Motor: Normal strength throughout Sensation: Normal sensation throughout Speech: Normal Cerebel: Normal coordination Normal gait Normal finger to nose Pronator drift negative DTR: 2+ and symmetric upper/lower extremities Psych: Normal Mood and Affect Results 24 hrs Laboratory Tests Test 07/25/17 22:11 White Blood Count Pending Red Blood Count Pending Hemoglobin Pending Hematocrit Pending Mean Corpuscular Volume Pending Mean Corpuscular Hemoglobin Pending Mean Corpuscular Hemoglobin Concent Pending Red Cell Distribution Width Pending Platelet Count Pending Mean Platelet Volume Pending Current Medications Medications (Trade) Dose Ordered Sig/Omar Route PRN Reason Start Time Stop Time Status Last Admin Dose Admin Sodium Chloride (NS) 1,000 ml @ 1,000 mls/hr Q1H ONCE IV 07/25/17 21:00 07/25/17 21:59 DC 07/25/17 22:17 Metoclopramide HCl (Reglan) 10 mg ONCE ONCE IV 07/25/17 21:00 07/25/17 21:02 DC 07/25/17 22:17 Meclizine HCl (Antivert) 25 mg ONCE ONCE PO 07/25/17 21:00 07/25/17 21:02 DC 07/25/17 21:43 Lorazepam (Ativan) 1 mg ONCE ONCE PO 07/25/17 23:00 07/25/17 23:01 DC 07/25/17 22:54 Patient eloped before results Procedures/MDM PROCEDURE: CT Head without. CLINICAL INDICATION: Nausea, vomiting, worsening headache. TECHNIQUE: The study was performed utilizing a multi-slice, multidetector CT scanner. Direct spiral 1 mm axial sections were obtained through the head without the use of intravenous contrast material. 1 or more of the following dose reduction techniques were utilized: Automated exposure control, adjustment of the mA and/or kV according to patient's size, iterative reconstruction technique. Coronal and sagittal reformations were obtained. The images were reviewed on a PACS workstation. RADIATION DOSE: CTDIvol: 44.5 mGy DLP: 720.2 mGy-cm COMPARISON: No prior studies are available for comparison. FINDINGS: There is no intracranial hemorrhage, extra-axial fluid collection, mass lesion, midline shift or hydrocephalus. The ventricles, sulci and cisterns are within normal limits. The white matter is unremarkable. The navarro-white matter differentiation is preserved. The basal cisterns are patent. The midline structures are intact. The orbits, calvarium and extracranial soft tissues are normal in appearance. The visualized paranasal sinuses, mastoid air cells and middle ear cavities are normally aerated. There is pneumatization of the bilateral petrous apices without evidence of inflammatory changes, normal variant. IMPRESSION: 1. No acute intracranial abnormality. No intracranial hemorrhage, extra-axial fluid collection, mass lesion or hydrocephalous. Electronically viewed and signed by .Ilya Palmer MD, on 07/25/2017 21: 35 This 47-year-old female presents to the emergency department for repeat evaluation was seen 3 days ago and treated with IV fluid 2 L, 0.5 mg Dilaudid for migraine symptoms, Zofran for nausea and vomiting. Patient had temporary improvement of symptoms by the time she went home reports symptoms returned shortly after. Patient states that she has not been able to eat or drink without vomiting in 7 days. She was seen by her primary care physician today instructed to come to emergency department. Patient has history of fibromyalgia currently is on no treatment for symptoms. Today's plan includes CAT scan to rule out subarachnoid bleed, cerebral mass or subdural hematoma. Normal saline for suspected dehydration along with Reglan 10 mg for nausea/ vomiting and meclizine for dizziness. Patient reassessed after 60 MIN Patient reports that she is feeling anxious and requesting pain medication. Patient receives 1 mg of Ativan. Shortly after not receiving pain medication patient reports that she would like to leave. Patient eloped before any laboratory testing was complete. Departure Diagnosis: Primary Impression: Drug-seeking behavior SOLITARIO ORETZ Jul 25, 2017 21:01
--- NOTE | 2017-07-25 21:36 | RADRPT ---
PROCEDURE: CT Head without. CLINICAL INDICATION: Nausea, vomiting, worsening headache. TECHNIQUE: The study was performed utilizing a multi-slice, multidetector CT scanner. Direct spira l 1 mm axial sections were obtained through the head without the use of intravenous contrast materia l. 1 or more of the following dose reduction techniques were utilized: Automated exposure control, adjustment of the mA and/or kV according to patient's size, iterative reconstruction technique. Co kalee and sagittal reformations were obtained. The images were reviewed on a PACS workstation. RADIATION DOSE: CTDIvol: 44.5 mGyDLP: 720.2 mGy-cm COMPARISON: No prior studies are available for comparison. FINDINGS: There is no intracranial hemorrhage, extra-axial fluid collection, mass lesion, midline shift or hyd rocephalus. The ventricles, sulci and cisterns are within normal limits. The white matter is unrem arkable. The navarro-white matter differentiation is preserved. The basal cisterns are patent. The m idline structures are intact. The orbits, calvarium and extracranial soft tissues are normal in kait earance. The visualized paranasal sinuses, mastoid air cells and middle ear cavities are normally ae rated. There is pneumatization of the bilateral petrous apices without evidence of inflammatory torres ges, normal variant. IMPRESSION: 1. No acute intracranial abnormality. No intracranial hemorrhage, extra-axial fluid collection, ma ss lesion or hydrocephalous. RPTAT: HGAS .Ilya Palmer MD, MD Date Time Electronically viewed and signed by .Ilya Palmer MD, on 07/25/2017 21:35 .S/
[2017-07-25] MEDS ORDERED: LORAZEPAM 1 MG TAB PO ONE (23:00)
[2017-07-26 00:07] LABS: BASOPHIL # 0.1 10^3/ul (0.0-0.1); BASOPHILS % 0.7 % (0.0-2.0); EOSINOPHILS # 0.3 10^3/ul (0.0-0.5); EOSINOPHILS % 3.5 % (0.0-7.0); HEMATOCRIT 39.1 % (37.0-47.0); LYMPHOCYTES % 41.2 % (15.0-51.0); MEAN CORPUSCULAR HEMOGLOBIN 24.9 pg (29.0-33.0); MEAN CORPUSCULAR HGB CONC 30.7 g/dl (32.0-37.0); MEAN CORPUSCULAR VOLUME 81.3 fl (82.0-101.0); MEAN PLATELET VOLUME 9.7 fl (7.4-10.4); MONOCYTE # 0.7 10^3/ul (0.3-0.9); MONOCYTES % 7.6 % (0.0-11.0); NEUTROPHILS % 46.8 % (39.0-77.0); PLATELET COUNT 316 10^3/UL (140-415); RED BLOOD COUNT 4.81 10^6/ul (4.20-5.40); RED CELL DISTRIBUTION WIDTH 15.3 % (11.5-14.5); WHITE BLOOD COUNT 9.6 10^3/ul (4.8-10.8)
[2017-07-26 00:26] LABS: ALBUMIN 3.5 g/dl (3.3-4.9); ALBUMIN/GLOBULIN RATIO 1.34; CALCIUM 9.5 mg/dl (8.4-10.2); CHOL/HDL RATIO 3.4 RATIO; CREATININE 0.65 mg/dl (0.44-1.00); POTASSIUM 4.1 mmol/L (3.5-5.1); TOTAL PROTEIN 6.1 g/dl (6.1-8.1)
== END 2017-07-25 23:30 | disposition left against medical advice (07) ==
LOC: FTE 17:34
DX: R42 Dizziness and giddiness (principal); F17.210 Nicotine dependence, cigarettes, uncomplicated; Z76.5 Malingerer [conscious simulation]
CPT/HCPCS: 70450; 80053; 80061; 85025; 96374; 99285; J2765; J7030

== ENCOUNTER 2017-09-03 20:06 | Emergency (ER) | payer BC, OTHER ==
[~2017-09-03] VITALS: Ht 162.6 cm; Wt 61.4 kg
[2017-09-03 20:12] VITALS: Ht 162.6 cm; Wt 61.4 kg
--- NOTE | 2017-09-03 23:37 | RADRPT ---
PROCEDURE: XR Knee. CLINICAL INDICATION: Post traumatic right knee pain following a fall TECHNIQUE: AP, lateral and tunnel views of the right knee were obtained. COMPARISON: None. FINDINGS: No fracture or osseous lesion is identified. There is no evidence for dislocation. Mineralization is within normal limits. Joint spaces are preserved. No evidence of effusion or soft tissue swelli ng is identified. RPTAT:HJJR IMPRESSION: Unremarkable right knee series. Physician Fatemeh Date Time Electronically viewed and signed by Physician Fatemeh on 09/03/2017 23:37 JR/
--- NOTE | 2017-09-03 23:38 | RADRPT ---
PROCEDURE: XR Chest. CLINICAL INDICATION: Shortness of breath. TECHNIQUE: Portable AP semi erect view of the chest was obtained. COMPARISON: 04/28/2017 FINDINGS: The cardiomediastinal silhouette is within normal limits. The lungs are clear. There is no evidenc e for pleural effusion, pneumothorax or pulmonary vascular congestion. The osseous structures are i ntact with no evidence for acute abnormality. RPTAT:HJJR IMPRESSION: No evidence for acute intrathoracic pathology or interval change from 04/28/2017. Physician Fatemeh Date Time Electronically viewed and signed by Physician Fatemeh on 09/03/2017 23:37 JR/
[2017-09-04] MEDS ORDERED: ACET500C5 PO (00:02)
--- NOTE | 2017-09-04 00:21 | ERD ---
ER Documentation Chief Complaint Chief Complaint right knee pain, glf last night around 0. states passed out HPI Patient is a 47-year-old female with a past medical history of anxiety, depression, fibromyalgia, fibroids, menorrhagia, migraine headaches who presents emergency department for concerns of right knee pain after a possible syncopal episode. Patient states that she was feeling lightheaded and short of breath yesterday while walking. She does not recall having any chest pain. Patient does not fully recall falling however she states her observed the injury. Per patient's patient fell onto her right knee. Patient did not hit her head. Patient states throughout the day today she had right knee pain. Patient reports difficulty with ambulating. She states that she is unable to bear weight to the right lower extremity secondary to pain. Patient denies any dizziness, nausea, vomiting, acute confusion, excessive sleepiness, chest pain, shortness of breath, abdominal pain or loss of consciousness today. Patient denies any excessive vaginal bleeding at this time. She is speaking in full sentences. Patient is moving all extremities without any difficulty. Patient denies any unilateral weakness. Patient denies any prolonged travel, recent surgeries, history of DVT or PE. Patient denies any alcohol or drug use. ROS All systems reviewed and are negative except as per history of present illness. Medications Home Meds Active Scripts Acetaminophen* (Tylophen*) 500 Mg Capsule, 1 CAP PO Q6H Y for PAIN AND OR ELEVATED TEMP, #20 CAP Prov:PIPO CERVANTES PA-C 09/04/17 Hydroxyzine Hcl* (Hydroxyzine Hcl*) 25 Mg Tablet, 25 MG PO Q8H Y for NAUSEA AND/ OR VOMITING, #10 TAB Prov:SOLITARIO ORTEZ 07/23/17 Ondansetron (Ondansetron Odt) 4 Mg Tab.rapdis, 4 MG PO Q6H Y for NAUSEA AND/OR VOMITING, #20 TAB Prov:VERONICA SIBLEY PA-C 06/29/17 Acetaminophen* (Tylenol*) 325 Mg Tablet, 2 TAB PO Q6 Y for PAIN AND OR ELEVATED TEMP, #20 TAB Prov:VERONICA SIBLEY PA-C 06/29/17 Alprazolam* (Xanax*) 0.5 Mg Tab, 0.5 MG PO Q8H Y for ANXIETY, #30 TAB Prov:KELI RAGSDALE PA-C 06/27/17 Reported Medications Medroxyprogesterone Acetate* (Provera*) 10 Mg Tablet, 20 MG PO TID, TAB 04/28/17 Ondansetron Hcl* (Zofran*) 4 Mg Tablet, 4 MG PO NEEDED Y for NAUSEA AND OR VOMITING, TAB 04/28/17 Oxycodone HCl/Acetaminophen (Percocet 5-325 mg Tablet) 1 Each Tablet, 1 EACH PO NEEDED, TAB 04/28/17 Sumatriptan Succinate* (Imitrex*) 100 Mg Tablet, 100 MG PO DAILY Y for MIGRAINE HEADACHE, TAB May repeat after 2 hours if needed; MAX 200 mg/24 hours 04/28/17 Escitalopram Oxalate* (Lexapro*) 20 Mg Tablet, 40 MG PO DAILY, #30 TAB 04/28/17 Alprazolam* (Xanax*) 0.5 Mg Tab, 0.5 MG PO NEEDED Y for ANXIETY, TAB 04/28/17 Trazodone Hcl* (Trazodone Hcl*) 150 Mg Tablet, 150 MG PO QHS, #30 TAB 04/28/17 Allergies Allergies: Coded Allergies: ibuprofen (Verified Allergy, Severe, hives, 09/03/17) PMhx/Soc History of Surgery: Yes (gastric slip/bypass, back surgery(fusion),endometrial ablation, hysterectom) Anesthesia Reaction: No Hx Neurological Disorder: Yes (migraine headache) Hx Respiratory Disorders: No Hx Cardiac Disorders: No Hx Psychiatric Problems: Yes (anxiety,depression) Hx Miscellaneous Medical Probl: Yes (fibroids,menorrhagia, fibromyalgia) Hx Alcohol Use: Yes (once/ year) Hx Substance Use: No Hx Tobacco Use: Yes (8 cigs/ day) Smoking Status: Current every day smoker FmHx Family History: No diabetes Physical Exam Vitals Vital Signs Date Time Temp Pulse Resp B/P Pulse Ox O2 Delivery O2 Flow Rate FiO2 09/03/17 20:12 98.3 97 20 113/71 97 Physical Exam GENERAL: Well-developed, well-nourished female. Appears in no acute distress. Speaking in full sentences HEAD: Normocephalic, atraumatic. EYES: Pupils are equally reactive bilaterally. EOMs grossly intact. No conjunctival erythema. ENT: Moist mucous membranes. No uvula deviation. No kissing tonsils. NECK: Supple. No meningismus. Normal range of motion of the neck. LUNG: Clear to auscultation bilaterally. No rhonchi, wheezing, rales or coarse breath sounds. HEART: Regular rate and rhythm. No murmurs, rubs or gallops. BACK: No midline tenderness. EXTREMITIES: Equal pulses bilaterally. No peripheral clubbing, cyanosis or edema. No unilateral leg swelling. NEUROLOGIC: Alert and oriented x3, cooperative. Mood and affect appropriate to situation. Cranial nerves II through XII are grossly intact. Normal speech. Motor exam: 5/5 strength in upper and lower extremities. Sensory exam: Sensation intact to light touch on all four extremities. Cerebellar function exam: No dysmetria on [id number] test. Steady gait. No pronator drift. SKIN: Normal color. Warm and dry. No rashes or lesions. RIGHT KNEE: No obvious deformity. Slight swelling and ecchymosis noted to the anterior knee. Decreased range of motion of the knee secondary to pain. Normal range of motion of the ankle and toes. Tender to palpation of the anterior knee. Nontender to palpation of the thigh, tibia/fibula, ankle. Sensation intact to light touch. Neurovascularly intact. (Able to plantarflex, dorsiflex, micheal foot, invert foot, raise big toe.) 2+ DP and DT pulses. Result Diagram: 09/03/17223409/03/172234 Results 24 hrs Laboratory Tests Test 09/03/17 22:35 White Blood Count 10.610^3/ul Red Blood Count 5.0810^6/ul Hemoglobin 13.4g/dl Hematocrit 40.9% Mean Corpuscular Volume 80.5fl Mean Corpuscular Hemoglobin 26.4pg Mean Corpuscular Hemoglobin Concent 32.8g/dl Red Cell Distribution Width 15.1% Platelet Count 87199^3/UL Mean Platelet Volume 8.9fl Neutrophils % 60.8% Lymphocytes % 27.4% Monocytes % 9.1% Eosinophils % 1.9% Basophils % 0.6% Nucleated Red Blood Cells % 0.0/100WBC Neutrophils # 6.510^3/ul Lymphocytes # 2.910^3/ul Monocytes # 1.010^3/ul Eosinophils # 0.210^3/ul Basophils # 0.110^3/ul Nucleated Red Blood Cells # 0.010^3/ul Sodium Level 140mmol/L Potassium Level 3.6mmol/L Chloride Level 104mmol/L Carbon Dioxide Level 24mmol/L Anion Gap 16 Blood Urea Nitrogen 10mg/dl Creatinine 0.68mg/dl Glucose Level 90mg/dl Calcium Level 9.3mg/dl Troponin I < 0.012ng/ml Procedures/MDM ED COURSE: The patient was stable throughout ED course. I kept the patient and/or family informed of laboratory and diagnostic imaging results throughout the ED course. EKG: Read by Dr. Smith, attending physician. EKG shows normal sinus rhythm at a rate of [address] elevations were noted. Left atrial enlargement noted. DIAGNOSTIC IMAGING: Read by radiologist. Patient: BELKYS SOLIS : 1970 Age: 47 Sex: F MR #: [id number] DOS: 09/03/172217 Ordering MD: PIPO CERVANTES PA-C Location: [facility] Room/Bed: PROCEDURE: XR Knee. CLINICAL INDICATION: Post traumatic right knee pain following a fall TECHNIQUE: AP, lateral and tunnel views of the right knee were obtained. COMPARISON: None. FINDINGS: No fracture or osseous lesion is identified. There is no evidence for dislocation. Mineralization is within normal limits. Joint spaces are preserved. No evidence of effusion or soft tissue swelling is identified. RPTAT:HJJR IMPRESSION: Unremarkable right knee series. Physician Fatemeh Date Time Electronically viewed and signed by Physician Fatemeh on 09/03/2017 23:37 JR/ CC: PIPO CERVANTES PA-C DIAGNOSTIC IMAGING REPORT Patient: BELKYS SOLIS : 1970 Age: 47 Sex: F MR #: [id number] DOS: 09/03/172217 Ordering MD: PIPO CERVANTES PA-C Location: [facility] Room/Bed: PROCEDURE: XR Chest. CLINICAL INDICATION: Shortness of breath. TECHNIQUE: Portable AP semi erect view of the chest was obtained. COMPARISON: 04/28/2017 FINDINGS: The cardiomediastinal silhouette is within normal limits. The lungs are clear. There is no evidence for pleural effusion, pneumothorax or pulmonary vascular congestion. The osseous structures are intact with no evidence for acute abnormality. RPTAT:HJJR IMPRESSION: No evidence for acute intrathoracic pathology or interval change from 2016. Physician Fatemeh Date Time Electronically viewed and signed by Physician Fatemeh on 09/03/2017 23:37 JR/ CC: PIPO CERVANTES PA-C PROCEDURES: SPLINT APPLICATION: The patient was verbally consented at bedside prior to splint application. Patient was explained the risks, benefits and alternatives to this procedure. The patient was neurovascularly intact prior to and status post application of the splint. The patient tolerated the procedure well with no complications. Splint type: knee immobilizer Extremity: right knee Indication: right knee pain MEDICAL DECISION MAKING: This is a 47-year-old female with past medical history of fibromyalgia, depression, anxiety, menorrhagia, fibroids who presents with right knee pain after possible syncopal episode yesterday. Patient reports feeling dizzy and shortness of breath when she had a syncopal episode. Patient denies any chest pain, shortness of breath, nausea, vomiting, head injury, very vision, dizziness or abdominal pain today. Patient denied any recent surgeries, travel, area of DVT or PE.. Vital signs were reviewed. Patient was afebrile. Patient was not hypoxic. Cardiac exam was normal. Lung exam was normal. Full neuro exam was normal. Patient had no focal deficits. EKG showed no signs of STEMI. Troponin was negative. CBC showed no evidence of systemic infection or severe anemia. CMP showed no evidence of electrolyte abnormalities, severe acidosis, alkalosis, renal failure. Chest x-ray was unremarkable. Right knee series was unremarkable. Knee immobilizer was given to the patient for comfort measures. Patient was given crutches to assist with ambulating. Patient was advised and I am unable to rule out any ligament or tendon injuries at this time. Patient may need an MRI and an outpatient basis. At this time, the patient's presentation is most consistent with right knee pain and possible syncopal episode. Low suspicion for ACS, arrhythmia, pericarditis, aortic dissection, pneumonia, pleural effusion, pneumothorax, PE, anemia, CVA, sepsis. PRESCRIPTIONS: Tylenol DISCHARGE: At this time, patient is stable for discharge and outpatient management. Patient was given a copy of all imaging studies obtained today. Patient was given copy of all blood work obtained today. I have instructed the patient to follow-up with his/her primary care physician in 1-2 days. If symptoms persist, patient may need to see a specialist for further examinations and testing. I have instructed the patient to promptly return to the ER at any time for any new or worsening symptoms including increased increased pain, fever, nausea, vomiting, numbness, weakness, diaphoresis or LOC. The patient and/or family expressed understanding of and agreement with this plan. All questions were answered. Home care instructions were provided. Disclaimer: Inadvertent spelling and grammatical errors are likely due to EHR/ dictation software use and do not reflect on the overall quality of patient care. Also, please note that the electronic time recorded on this note does not necessarily reflect the actual time of the patient encounter. Departure Diagnosis: Primary Impression: Knee pain Chronicity: acute Laterality: right Qualified Code: M25.561 - Acute pain of right knee Additional Impression: Syncope, near Condition: Stable Patient Instructions: Knee Pain, Uncertain Cause Referrals: [facility] YOU HAVE RECEIVED A MEDICAL SCREENING EXAM AND THE RESULTS INDICATE THAT YOU DO NOT HAVE A CONDITION THAT REQUIRES URGENT TREATMENT IN THE EMERGENCY DEPARTMENT. FURTHER EVALUATION AND TREATMENT OF YOUR CONDITION CAN WAIT UNTIL YOU ARE SEEN IN YOUR DOCTORS OFFICE WITHIN THE NEXT 1-2 DAYS. IT IS YOUR RESPONSIBILITY TO MAKE AN APPOINTMENT FOR FOLOW-UP CARE. IF YOU HAVE A PRIMARY DOCTOR --you should call your primary doctor and schedule an appointment IF YOU DO NOT HAVE A PRIMARY DOCTOR YOU CAN CALL OUR PHYSICIAN REFERRAL HOTLINE AT IF YOU CAN NOT AFFORD TO SEE A PHYSICIAN YOU CAN CHOSE FROM THE FOLLOWING [facility] [address] [facility] [facility] [address] [facility] [address] [facility] [address] [facility] [address] [facility]. [facility] [address] [facility]. [facility] YOU HAVE RECEIVED A MEDICAL SCREENING EXAM AND THE RESULTS INDICATE THAT YOU DO NOT HAVE A CONDITION THAT REQUIRES URGENT TREATMENT IN THE EMERGENCY DEPARTMENT. FURTHER EVALUATION AND TREATMENT OF YOUR CONDITION CAN WAIT UNTIL YOU ARE SEEN IN YOUR DOCTORS OFFICE WITHIN THE NEXT 1-2 DAYS. IT IS YOUR RESPONSIBILITY TO MAKE AN APPOINTMENT FOR FOLOW-UP CARE. IF YOU HAVE A PRIMARY DOCTOR --you should call your primary doctor and schedule and appointment IF YOU DO NOT HAVE A PRIMARY DOCTOR YOU CAN CALL OUR PHYSICIAN REFERRAL HOTLINE AT . IF YOU CAN NOT AFFORD TO SEE A PHYSICIAN YOU CAN CHOSE FROM THE FOLLOWING [facility] INSTITUTIONS: [facility] [address] [place] [address] [facility] [address] [place] [address] [facility] [address] [place] [address] [facility] Hours: Mon-Fri 9:00 AM - 5:00 PM Additional Instructions: Call your primary care doctor TOMORROW for an appointment during the next 1-2 days.See the doctor sooner or return here if your condition worsens before your appointment time. Follow-up with an aquarium specialist. You may need an MRI and an outpatient basis. PIPO CERVANTES PA-C Sep 04, 2017 00:16
--- NOTE | 2017-09-04 00:21 | ERD ---
ER Documentation Chief Complaint Chief Complaint right knee pain, glf last night around 0. states passed out HPI Patient is a 47-year-old female with a past medical history of anxiety, depression, fibromyalgia, fibroids, menorrhagia, migraine headaches who presents emergency department for concerns of right knee pain after a possible syncopal episode. Patient states that she was feeling lightheaded and short of breath yesterday while walking. She does not recall having any chest pain. Patient does not fully recall falling however she states her observed the injury. Per patient's patient fell onto her right knee. Patient did not hit her head. Patient states throughout the day today she had right knee pain. Patient reports difficulty with ambulating. She states that she is unable to bear weight to the right lower extremity secondary to pain. Patient denies any dizziness, nausea, vomiting, acute confusion, excessive sleepiness, chest pain, shortness of breath, abdominal pain or loss of consciousness today. Patient denies any excessive vaginal bleeding at this time. She is speaking in full sentences. Patient is moving all extremities without any difficulty. Patient denies any unilateral weakness. Patient denies any prolonged travel, recent surgeries, history of DVT or PE. Patient denies any alcohol or drug use. ROS All systems reviewed and are negative except as per history of present illness. Medications Home Meds Active Scripts Acetaminophen* (Tylophen*) 500 Mg Capsule, 1 CAP PO Q6H Y for PAIN AND OR ELEVATED TEMP, #20 CAP Prov:PIPO CERVANTES PA-C 09/04/17 Hydroxyzine Hcl* (Hydroxyzine Hcl*) 25 Mg Tablet, 25 MG PO Q8H Y for NAUSEA AND/ OR VOMITING, #10 TAB Prov:SOLITARIO ORTEZ 07/23/17 Ondansetron (Ondansetron Odt) 4 Mg Tab.rapdis, 4 MG PO Q6H Y for NAUSEA AND/OR VOMITING, #20 TAB Prov:VERONICA SIBLEY PA-C 06/29/17 Acetaminophen* (Tylenol*) 325 Mg Tablet, 2 TAB PO Q6 Y for PAIN AND OR ELEVATED TEMP, #20 TAB Prov:VERONICA SIBLEY PA-C 06/29/17 Alprazolam* (Xanax*) 0.5 Mg Tab, 0.5 MG PO Q8H Y for ANXIETY, #30 TAB Prov:KELI RAGSDALE PA-C 06/27/17 Reported Medications Medroxyprogesterone Acetate* (Provera*) 10 Mg Tablet, 20 MG PO TID, TAB 04/28/17 Ondansetron Hcl* (Zofran*) 4 Mg Tablet, 4 MG PO NEEDED Y for NAUSEA AND OR VOMITING, TAB 04/28/17 Oxycodone HCl/Acetaminophen (Percocet 5-325 mg Tablet) 1 Each Tablet, 1 EACH PO NEEDED, TAB 04/28/17 Sumatriptan Succinate* (Imitrex*) 100 Mg Tablet, 100 MG PO DAILY Y for MIGRAINE HEADACHE, TAB May repeat after 2 hours if needed; MAX 200 mg/24 hours 04/28/17 Escitalopram Oxalate* (Lexapro*) 20 Mg Tablet, 40 MG PO DAILY, #30 TAB 04/28/17 Alprazolam* (Xanax*) 0.5 Mg Tab, 0.5 MG PO NEEDED Y for ANXIETY, TAB 04/28/17 Trazodone Hcl* (Trazodone Hcl*) 150 Mg Tablet, 150 MG PO QHS, #30 TAB 04/28/17 Allergies Allergies: Coded Allergies: ibuprofen (Verified Allergy, Severe, hives, 09/03/17) PMhx/Soc History of Surgery: Yes (gastric slip/bypass, back surgery(fusion),endometrial ablation, hysterectom) Anesthesia Reaction: No Hx Neurological Disorder: Yes (migraine headache) Hx Respiratory Disorders: No Hx Cardiac Disorders: No Hx Psychiatric Problems: Yes (anxiety,depression) Hx Miscellaneous Medical Probl: Yes (fibroids,menorrhagia, fibromyalgia) Hx Alcohol Use: Yes (once/ year) Hx Substance Use: No Hx Tobacco Use: Yes (8 cigs/ day) Smoking Status: Current every day smoker FmHx Family History: No diabetes Physical Exam Vitals Vital Signs Date Time Temp Pulse Resp B/P Pulse Ox O2 Delivery O2 Flow Rate FiO2 09/03/17 20:12 98.3 97 20 113/71 97 Physical Exam GENERAL: Well-developed, well-nourished female. Appears in no acute distress. Speaking in full sentences HEAD: Normocephalic, atraumatic. EYES: Pupils are equally reactive bilaterally. EOMs grossly intact. No conjunctival erythema. ENT: Moist mucous membranes. No uvula deviation. No kissing tonsils. NECK: Supple. No meningismus. Normal range of motion of the neck. LUNG: Clear to auscultation bilaterally. No rhonchi, wheezing, rales or coarse breath sounds. HEART: Regular rate and rhythm. No murmurs, rubs or gallops. BACK: No midline tenderness. EXTREMITIES: Equal pulses bilaterally. No peripheral clubbing, cyanosis or edema. No unilateral leg swelling. NEUROLOGIC: Alert and oriented x3, cooperative. Mood and affect appropriate to situation. Cranial nerves II through XII are grossly intact. Normal speech. Motor exam: 5/5 strength in upper and lower extremities. Sensory exam: Sensation intact to light touch on all four extremities. Cerebellar function exam: No dysmetria on [id number] test. Steady gait. No pronator drift. SKIN: Normal color. Warm and dry. No rashes or lesions. RIGHT KNEE: No obvious deformity. Slight swelling and ecchymosis noted to the anterior knee. Decreased range of motion of the knee secondary to pain. Normal range of motion of the ankle and toes. Tender to palpation of the anterior knee. Nontender to palpation of the thigh, tibia/fibula, ankle. Sensation intact to light touch. Neurovascularly intact. (Able to plantarflex, dorsiflex, micheal foot, invert foot, raise big toe.) 2+ DP and DT pulses. Result Diagram: 09/03/17223409/03/172234 Results 24 hrs Laboratory Tests Test 09/03/17 22:35 White Blood Count 10.610^3/ul Red Blood Count 5.0810^6/ul Hemoglobin 13.4g/dl Hematocrit 40.9% Mean Corpuscular Volume 80.5fl Mean Corpuscular Hemoglobin 26.4pg Mean Corpuscular Hemoglobin Concent 32.8g/dl Red Cell Distribution Width 15.1% Platelet Count 26762^3/UL Mean Platelet Volume 8.9fl Neutrophils % 60.8% Lymphocytes % 27.4% Monocytes % 9.1% Eosinophils % 1.9% Basophils % 0.6% Nucleated Red Blood Cells % 0.0/100WBC Neutrophils # 6.510^3/ul Lymphocytes # 2.910^3/ul Monocytes # 1.010^3/ul Eosinophils # 0.210^3/ul Basophils # 0.110^3/ul Nucleated Red Blood Cells # 0.010^3/ul Sodium Level 140mmol/L Potassium Level 3.6mmol/L Chloride Level 104mmol/L Carbon Dioxide Level 24mmol/L Anion Gap 16 Blood Urea Nitrogen 10mg/dl Creatinine 0.68mg/dl Glucose Level 90mg/dl Calcium Level 9.3mg/dl Troponin I < 0.012ng/ml Procedures/MDM ED COURSE: The patient was stable throughout ED course. I kept the patient and/or family informed of laboratory and diagnostic imaging results throughout the ED course. EKG: Read by Dr. Smith, attending physician. EKG shows normal sinus rhythm at a rate of [address] elevations were noted. Left atrial enlargement noted. DIAGNOSTIC IMAGING: Read by radiologist. Patient: BELKYS SOLIS : 1970 Age: 47 Sex: F MR #: [id number] DOS: 09/03/172217 Ordering MD: PIPO CERVANTES PA-C Location: [facility] Room/Bed: PROCEDURE: XR Knee. CLINICAL INDICATION: Post traumatic right knee pain following a fall TECHNIQUE: AP, lateral and tunnel views of the right knee were obtained. COMPARISON: None. FINDINGS: No fracture or osseous lesion is identified. There is no evidence for dislocation. Mineralization is within normal limits. Joint spaces are preserved. No evidence of effusion or soft tissue swelling is identified. RPTAT:HJJR IMPRESSION: Unremarkable right knee series. Physician Fatemeh Date Time Electronically viewed and signed by Physician Fatemeh on 09/03/2017 23:37 JR/ CC: PIPO CERVANTES PA-C DIAGNOSTIC IMAGING REPORT Patient: BELKYS SOLIS : 1970 Age: 47 Sex: F MR #: [id number] DOS: 09/03/172217 Ordering MD: PIPO CERVANTES PA-C Location: [facility] Room/Bed: PROCEDURE: XR Chest. CLINICAL INDICATION: Shortness of breath. TECHNIQUE: Portable AP semi erect view of the chest was obtained. COMPARISON: 04/28/2017 FINDINGS: The cardiomediastinal silhouette is within normal limits. The lungs are clear. There is no evidence for pleural effusion, pneumothorax or pulmonary vascular congestion. The osseous structures are intact with no evidence for acute abnormality. RPTAT:HJJR IMPRESSION: No evidence for acute intrathoracic pathology or interval change from 2016. Physician Fatemeh Date Time Electronically viewed and signed by Physician Fatemeh on 09/03/2017 23:37 JR/ CC: PIPO CERVANTES PA-C PROCEDURES: SPLINT APPLICATION: The patient was verbally consented at bedside prior to splint application. Patient was explained the risks, benefits and alternatives to this procedure. The patient was neurovascularly intact prior to and status post application of the splint. The patient tolerated the procedure well with no complications. Splint type: knee immobilizer Extremity: right knee Indication: right knee pain MEDICAL DECISION MAKING: This is a 47-year-old female with past medical history of fibromyalgia, depression, anxiety, menorrhagia, fibroids who presents with right knee pain after possible syncopal episode yesterday. Patient reports feeling dizzy and shortness of breath when she had a syncopal episode. Patient denies any chest pain, shortness of breath, nausea, vomiting, head injury, very vision, dizziness or abdominal pain today. Patient denied any recent surgeries, travel, area of DVT or PE.. Vital signs were reviewed. Patient was afebrile. Patient was not hypoxic. Cardiac exam was normal. Lung exam was normal. Full neuro exam was normal. Patient had no focal deficits. EKG showed no signs of STEMI. Troponin was negative. CBC showed no evidence of systemic infection or severe anemia. CMP showed no evidence of electrolyte abnormalities, severe acidosis, alkalosis, renal failure. Chest x-ray was unremarkable. Right knee series was unremarkable. Knee immobilizer was given to the patient for comfort measures. Patient was given crutches to assist with ambulating. Patient was advised and I am unable to rule out any ligament or tendon injuries at this time. Patient may need an MRI and an outpatient basis. At this time, the patient's presentation is most consistent with right knee pain and possible syncopal episode. Low suspicion for ACS, arrhythmia, pericarditis, aortic dissection, pneumonia, pleural effusion, pneumothorax, PE, anemia, CVA, sepsis. PRESCRIPTIONS: Tylenol DISCHARGE: At this time, patient is stable for discharge and outpatient management. Patient was given a copy of all imaging studies obtained today. Patient was given copy of all blood work obtained today. I have instructed the patient to follow-up with his/her primary care physician in 1-2 days. If symptoms persist, patient may need to see a specialist for further examinations and testing. I have instructed the patient to promptly return to the ER at any time for any new or worsening symptoms including increased increased pain, fever, nausea, vomiting, numbness, weakness, diaphoresis or LOC. The patient and/or family expressed understanding of and agreement with this plan. All questions were answered. Home care instructions were provided. Disclaimer: Inadvertent spelling and grammatical errors are likely due to EHR/ dictation software use and do not reflect on the overall quality of patient care. Also, please note that the electronic time recorded on this note does not necessarily reflect the actual time of the patient encounter. Departure Diagnosis: Primary Impression: Knee pain Chronicity: acute Laterality: right Qualified Code: M25.561 - Acute pain of right knee Additional Impression: Syncope, near Condition: Stable Patient Instructions: Knee Pain, Uncertain Cause Referrals: [facility] YOU HAVE RECEIVED A MEDICAL SCREENING EXAM AND THE RESULTS INDICATE THAT YOU DO NOT HAVE A CONDITION THAT REQUIRES URGENT TREATMENT IN THE EMERGENCY DEPARTMENT. FURTHER EVALUATION AND TREATMENT OF YOUR CONDITION CAN WAIT UNTIL YOU ARE SEEN IN YOUR DOCTORS OFFICE WITHIN THE NEXT 1-2 DAYS. IT IS YOUR RESPONSIBILITY TO MAKE AN APPOINTMENT FOR FOLOW-UP CARE. IF YOU HAVE A PRIMARY DOCTOR --you should call your primary doctor and schedule an appointment IF YOU DO NOT HAVE A PRIMARY DOCTOR YOU CAN CALL OUR PHYSICIAN REFERRAL HOTLINE AT IF YOU CAN NOT AFFORD TO SEE A PHYSICIAN YOU CAN CHOSE FROM THE FOLLOWING [facility][1] [address] [facility]. [facility] [address] [facility] [address] [facility] [address] [facility] [address] [facility]. [facility] [address] [facility]. [facility] YOU HAVE RECEIVED A MEDICAL SCREENING EXAM AND THE RESULTS INDICATE THAT YOU DO NOT HAVE A CONDITION THAT REQUIRES URGENT TREATMENT IN THE EMERGENCY DEPARTMENT. FURTHER EVALUATION AND TREATMENT OF YOUR CONDITION CAN WAIT UNTIL YOU ARE SEEN IN YOUR DOCTORS OFFICE WITHIN THE NEXT 1-2 DAYS. IT IS YOUR RESPONSIBILITY TO MAKE AN APPOINTMENT FOR FOLOW-UP CARE. IF YOU HAVE A PRIMARY DOCTOR --you should call your primary doctor and schedule and appointment IF YOU DO NOT HAVE A PRIMARY DOCTOR YOU CAN CALL OUR PHYSICIAN REFERRAL HOTLINE AT . IF YOU CAN NOT AFFORD TO SEE A PHYSICIAN YOU CAN CHOSE FROM THE FOLLOWING [facility] INSTITUTIONS: [facility] [address] [place] [address] [facility] [address] [place] [address] [facility] [address] [place] [address] [facility] Hours: Mon-Fri 9:00 AM - 5:00 PM Additional Instructions: Call your primary care doctor TOMORROW for an appointment during the next 1-2 days.See the doctor sooner or return here if your condition worsens before your appointment time. Follow-up with an dispute specialist. You may need an MRI and an outpatient basis. PIPO CERVANTES PA-C Sep 04, 2017 00:16
--- NOTE | 2017-09-04 00:21 | ERD ---
ER Documentation Chief Complaint Chief Complaint right knee pain, glf last night around 0. states passed out HPI Patient is a 47-year-old female with a past medical history of anxiety, depression, fibromyalgia, fibroids, menorrhagia, migraine headaches who presents emergency department for concerns of right knee pain after a possible syncopal episode. Patient states that she was feeling lightheaded and short of breath yesterday while walking. She does not recall having any chest pain. Patient does not fully recall falling however she states her observed the injury. Per patient's patient fell onto her right knee. Patient did not hit her head. Patient states throughout the day today she had right knee pain. Patient reports difficulty with ambulating. She states that she is unable to bear weight to the right lower extremity secondary to pain. Patient denies any dizziness, nausea, vomiting, acute confusion, excessive sleepiness, chest pain, shortness of breath, abdominal pain or loss of consciousness today. Patient denies any excessive vaginal bleeding at this time. She is speaking in full sentences. Patient is moving all extremities without any difficulty. Patient denies any unilateral weakness. Patient denies any prolonged travel, recent surgeries, history of DVT or PE. Patient denies any alcohol or drug use. ROS All systems reviewed and are negative except as per history of present illness. Medications Home Meds Active Scripts Acetaminophen* (Tylophen*) 500 Mg Capsule, 1 CAP PO Q6H Y for PAIN AND OR ELEVATED TEMP, #20 CAP Prov:PIPO CERVANTES PA-C 09/04/17 Hydroxyzine Hcl* (Hydroxyzine Hcl*) 25 Mg Tablet, 25 MG PO Q8H Y for NAUSEA AND/ OR VOMITING, #10 TAB Prov:SOLITARIO ORTEZ 07/23/17 Ondansetron (Ondansetron Odt) 4 Mg Tab.rapdis, 4 MG PO Q6H Y for NAUSEA AND/OR VOMITING, #20 TAB Prov:VERONICA SIBLEY PA-C 06/29/17 Acetaminophen* (Tylenol*) 325 Mg Tablet, 2 TAB PO Q6 Y for PAIN AND OR ELEVATED TEMP, #20 TAB Prov:VERONICA SIBLEY PA-C 06/29/17 Alprazolam* (Xanax*) 0.5 Mg Tab, 0.5 MG PO Q8H Y for ANXIETY, #30 TAB Prov:KELI RAGSDALE PA-C 06/27/17 Reported Medications Medroxyprogesterone Acetate* (Provera*) 10 Mg Tablet, 20 MG PO TID, TAB 04/28/17 Ondansetron Hcl* (Zofran*) 4 Mg Tablet, 4 MG PO NEEDED Y for NAUSEA AND OR VOMITING, TAB 04/28/17 Oxycodone HCl/Acetaminophen (Percocet 5-325 mg Tablet) 1 Each Tablet, 1 EACH PO NEEDED, TAB 04/28/17 Sumatriptan Succinate* (Imitrex*) 100 Mg Tablet, 100 MG PO DAILY Y for MIGRAINE HEADACHE, TAB May repeat after 2 hours if needed; MAX 200 mg/24 hours 04/28/17 Escitalopram Oxalate* (Lexapro*) 20 Mg Tablet, 40 MG PO DAILY, #30 TAB 04/28/17 Alprazolam* (Xanax*) 0.5 Mg Tab, 0.5 MG PO NEEDED Y for ANXIETY, TAB 04/28/17 Trazodone Hcl* (Trazodone Hcl*) 150 Mg Tablet, 150 MG PO QHS, #30 TAB 04/28/17 Allergies Allergies: Coded Allergies: ibuprofen (Verified Allergy, Severe, hives, 09/03/17) PMhx/Soc History of Surgery: Yes (gastric slip/bypass, back surgery(fusion),endometrial ablation, hysterectom) Anesthesia Reaction: No Hx Neurological Disorder: Yes (migraine headache) Hx Respiratory Disorders: No Hx Cardiac Disorders: No Hx Psychiatric Problems: Yes (anxiety,depression) Hx Miscellaneous Medical Probl: Yes (fibroids,menorrhagia, fibromyalgia) Hx Alcohol Use: Yes (once/ year) Hx Substance Use: No Hx Tobacco Use: Yes (8 cigs/ day) Smoking Status: Current every day smoker FmHx Family History: No diabetes Physical Exam Vitals Vital Signs Date Time Temp Pulse Resp B/P Pulse Ox O2 Delivery O2 Flow Rate FiO2 09/03/17 20:12 98.3 97 20 113/71 97 Physical Exam GENERAL: Well-developed, well-nourished female. Appears in no acute distress. Speaking in full sentences HEAD: Normocephalic, atraumatic. EYES: Pupils are equally reactive bilaterally. EOMs grossly intact. No conjunctival erythema. ENT: Moist mucous membranes. No uvula deviation. No kissing tonsils. NECK: Supple. No meningismus. Normal range of motion of the neck. LUNG: Clear to auscultation bilaterally. No rhonchi, wheezing, rales or coarse breath sounds. HEART: Regular rate and rhythm. No murmurs, rubs or gallops. BACK: No midline tenderness. EXTREMITIES: Equal pulses bilaterally. No peripheral clubbing, cyanosis or edema. No unilateral leg swelling. NEUROLOGIC: Alert and oriented x3, cooperative. Mood and affect appropriate to situation. Cranial nerves II through XII are grossly intact. Normal speech. Motor exam: 5/5 strength in upper and lower extremities. Sensory exam: Sensation intact to light touch on all four extremities. Cerebellar function exam: No dysmetria on [id number] test. Steady gait. No pronator drift. SKIN: Normal color. Warm and dry. No rashes or lesions. RIGHT KNEE: No obvious deformity. Slight swelling and ecchymosis noted to the anterior knee. Decreased range of motion of the knee secondary to pain. Normal range of motion of the ankle and toes. Tender to palpation of the anterior knee. Nontender to palpation of the thigh, tibia/fibula, ankle. Sensation intact to light touch. Neurovascularly intact. (Able to plantarflex, dorsiflex, micheal foot, invert foot, raise big toe.) 2+ DP and DT pulses. Result Diagram: 09/03/17223409/03/172234 Results 24 hrs Laboratory Tests Test 09/03/17 22:35 White Blood Count 10.610^3/ul Red Blood Count 5.0810^6/ul Hemoglobin 13.4g/dl Hematocrit 40.9% Mean Corpuscular Volume 80.5fl Mean Corpuscular Hemoglobin 26.4pg Mean Corpuscular Hemoglobin Concent 32.8g/dl Red Cell Distribution Width 15.1% Platelet Count 61656^3/UL Mean Platelet Volume 8.9fl Neutrophils % 60.8% Lymphocytes % 27.4% Monocytes % 9.1% Eosinophils % 1.9% Basophils % 0.6% Nucleated Red Blood Cells % 0.0/100WBC Neutrophils # 6.510^3/ul Lymphocytes # 2.910^3/ul Monocytes # 1.010^3/ul Eosinophils # 0.210^3/ul Basophils # 0.110^3/ul Nucleated Red Blood Cells # 0.010^3/ul Sodium Level 140mmol/L Potassium Level 3.6mmol/L Chloride Level 104mmol/L Carbon Dioxide Level 24mmol/L Anion Gap 16 Blood Urea Nitrogen 10mg/dl Creatinine 0.68mg/dl Glucose Level 90mg/dl Calcium Level 9.3mg/dl Troponin I < 0.012ng/ml Procedures/MDM ED COURSE: The patient was stable throughout ED course. I kept the patient and/or family informed of laboratory and diagnostic imaging results throughout the ED course. EKG: Read by Dr. Smith, attending physician. EKG shows normal sinus rhythm at a rate of [address] elevations were noted. Left atrial enlargement noted. DIAGNOSTIC IMAGING: Read by radiologist. Patient: BELKYS SOLIS : 1970 Age: 47 Sex: F MR #: [id number] DOS: 09/03/172217 Ordering MD: PIPO CERVANTES PA-C Location: [facility] Room/Bed: PROCEDURE: XR Knee. CLINICAL INDICATION: Post traumatic right knee pain following a fall TECHNIQUE: AP, lateral and tunnel views of the right knee were obtained. COMPARISON: None. FINDINGS: No fracture or osseous lesion is identified. There is no evidence for dislocation. Mineralization is within normal limits. Joint spaces are preserved. No evidence of effusion or soft tissue swelling is identified. RPTAT:HJJR IMPRESSION: Unremarkable right knee series. Physician Fatemeh Date Time Electronically viewed and signed by Physician Fatemeh on 09/03/2017 23:37 JR/ CC: PIPO CERVANTES PA-C DIAGNOSTIC IMAGING REPORT Patient: BELKYS SOLIS : 1970 Age: 47 Sex: F MR #: [id number] DOS: 09/03/172217 Ordering MD: PIPO CERVANTES PA-C Location: [facility] Room/Bed: PROCEDURE: XR Chest. CLINICAL INDICATION: Shortness of breath. TECHNIQUE: Portable AP semi erect view of the chest was obtained. COMPARISON: 04/28/2017 FINDINGS: The cardiomediastinal silhouette is within normal limits. The lungs are clear. There is no evidence for pleural effusion, pneumothorax or pulmonary vascular congestion. The osseous structures are intact with no evidence for acute abnormality. RPTAT:HJJR IMPRESSION: No evidence for acute intrathoracic pathology or interval change from 2016. Physician Fatemeh Date Time Electronically viewed and signed by Physician Fatemeh on 09/03/2017 23:37 JR/ CC: PIPO CERVANTES PA-C PROCEDURES: SPLINT APPLICATION: The patient was verbally consented at bedside prior to splint application. Patient was explained the risks, benefits and alternatives to this procedure. The patient was neurovascularly intact prior to and status post application of the splint. The patient tolerated the procedure well with no complications. Splint type: knee immobilizer Extremity: right knee Indication: right knee pain MEDICAL DECISION MAKING: This is a 47-year-old female with past medical history of fibromyalgia, depression, anxiety, menorrhagia, fibroids who presents with right knee pain after possible syncopal episode yesterday. Patient reports feeling dizzy and shortness of breath when she had a syncopal episode. Patient denies any chest pain, shortness of breath, nausea, vomiting, head injury, very vision, dizziness or abdominal pain today. Patient denied any recent surgeries, travel, area of DVT or PE.. Vital signs were reviewed. Patient was afebrile. Patient was not hypoxic. Cardiac exam was normal. Lung exam was normal. Full neuro exam was normal. Patient had no focal deficits. EKG showed no signs of STEMI. Troponin was negative. CBC showed no evidence of systemic infection or severe anemia. CMP showed no evidence of electrolyte abnormalities, severe acidosis, alkalosis, renal failure. Chest x-ray was unremarkable. Right knee series was unremarkable. Knee immobilizer was given to the patient for comfort measures. Patient was given crutches to assist with ambulating. Patient was advised and I am unable to rule out any ligament or tendon injuries at this time. Patient may need an MRI and an outpatient basis. At this time, the patient's presentation is most consistent with right knee pain and possible syncopal episode. Low suspicion for ACS, arrhythmia, pericarditis, aortic dissection, pneumonia, pleural effusion, pneumothorax, PE, anemia, CVA, sepsis. PRESCRIPTIONS: Tylenol DISCHARGE: At this time, patient is stable for discharge and outpatient management. Patient was given a copy of all imaging studies obtained today. Patient was given copy of all blood work obtained today. I have instructed the patient to follow-up with his/her primary care physician in 1-2 days. If symptoms persist, patient may need to see a specialist for further examinations and testing. I have instructed the patient to promptly return to the ER at any time for any new or worsening symptoms including increased increased pain, fever, nausea, vomiting, numbness, weakness, diaphoresis or LOC. The patient and/or family expressed understanding of and agreement with this plan. All questions were answered. Home care instructions were provided. Disclaimer: Inadvertent spelling and grammatical errors are likely due to EHR/ dictation software use and do not reflect on the overall quality of patient care. Also, please note that the electronic time recorded on this note does not necessarily reflect the actual time of the patient encounter. Departure Diagnosis: Primary Impression: Knee pain Chronicity: acute Laterality: right Qualified Code: M25.561 - Acute pain of right knee Additional Impression: Syncope, near Condition: Stable Patient Instructions: Knee Pain, Uncertain Cause Referrals: [facility] YOU HAVE RECEIVED A MEDICAL SCREENING EXAM AND THE RESULTS INDICATE THAT YOU DO NOT HAVE A CONDITION THAT REQUIRES URGENT TREATMENT IN THE EMERGENCY DEPARTMENT. FURTHER EVALUATION AND TREATMENT OF YOUR CONDITION CAN WAIT UNTIL YOU ARE SEEN IN YOUR DOCTORS OFFICE WITHIN THE NEXT 1-2 DAYS. IT IS YOUR RESPONSIBILITY TO MAKE AN APPOINTMENT FOR FOLOW-UP CARE. IF YOU HAVE A PRIMARY DOCTOR --you should call your primary doctor and schedule an appointment IF YOU DO NOT HAVE A PRIMARY DOCTOR YOU CAN CALL OUR PHYSICIAN REFERRAL HOTLINE AT IF YOU CAN NOT AFFORD TO SEE A PHYSICIAN YOU CAN CHOSE FROM THE FOLLOWING [facility] [address] [facility]. [place] [facility] [address] [facility] [address] [facility] [address] [facility] [address] [facility]. [facility] [address] [facility]. [facility] YOU HAVE RECEIVED A MEDICAL SCREENING EXAM AND THE RESULTS INDICATE THAT YOU DO NOT HAVE A CONDITION THAT REQUIRES URGENT TREATMENT IN THE EMERGENCY DEPARTMENT. FURTHER EVALUATION AND TREATMENT OF YOUR CONDITION CAN WAIT UNTIL YOU ARE SEEN IN YOUR DOCTORS OFFICE WITHIN THE NEXT 1-2 DAYS. IT IS YOUR RESPONSIBILITY TO MAKE AN APPOINTMENT FOR FOLOW-UP CARE. IF YOU HAVE A PRIMARY DOCTOR --you should call your primary doctor and schedule and appointment IF YOU DO NOT HAVE A PRIMARY DOCTOR YOU CAN CALL OUR PHYSICIAN REFERRAL HOTLINE AT . IF YOU CAN NOT AFFORD TO SEE A PHYSICIAN YOU CAN CHOSE FROM THE FOLLOWING [facility] INSTITUTIONS: [facility] [address] [place] [address] [facility] [address] [place] [address] [facility] [address] [place] [address] [facility] Hours: Mon-Fri 9:00 AM - 5:00 PM Additional Instructions: Call your primary care doctor TOMORROW for an appointment during the next 1-2 days.See the doctor sooner or return here if your condition worsens before your appointment time. Follow-up with an pacs specialist. You may need an MRI and an outpatient basis. PIPO CERVANTES PA-C Sep 04, 2017 00:16
[2017-09-04 00:22] VITALS: BP 123/76; PULSE 67; RESP 20
== END 2017-09-04 00:22 | disposition home or self-care (01) ==
LOC: FTE 20:06
DX: M25.561 Pain in right knee (principal); R55 Syncope and collapse; F17.210 Nicotine dependence, cigarettes, uncomplicated
CPT/HCPCS: 36415; 71010; 73562; 80048; 84484; 85025; 93005